=== PATIENT | male | born 1960 | race Two or more races ===

== ENCOUNTER 2020-02-16 16:38 | Emergency (ER) | payer OTHER ==
[~2020-02-16] VITALS: Ht 175.3 cm; Wt 88.9 kg
[2020-02-16] MEDS ORDERED: SODIUM CHLORIDE 0.9% 1,000 ML IV ONE ×2 (16:42)
[2020-02-16] MEDS ORDERED: FLEET ENEMA(ADULT) 135 ML PR ONE (16:45)
[2020-02-16 17:19] LABS: Basophils # (auto) 0.1 10 ^3/uL (0-0.2); Eosinophils # (auto) 0 10 ^3/uL (0-0.8); Mean Corpuscular Hemoglobin 26.6 pg (28.0-32.0)
[2020-02-16 17:21] LABS: Basophils % (auto) 1.5 % (0.0-2.0); Eosinophils % (auto) 0.3 % (0.0-7.0); Hematocrit 43.2 % (41.0-53.0); Hemoglobin 14.1 g/dL (13.5-17.5); Lymphocytes # (auto) 1.3 10 ^3/uL (0.4-5.4); Lymphocytes % (auto) 14.9 % (10.0-50.0); Mean Corpuscular Hgb Conc. 32.7 g/dL (32.0-36.0); Mean Corpuscular Volume 81.6 fL (80.0-100.0); Monocytes % (auto) 11.9 % (0.0-12.0); Neutrophils # (auto) 6.2 10 ^3/uL (1.6-8.6); Neutrophils % (auto) 71.4 % (37.0-80.0); Nucleated Red Blood Cells % 0.2 %; Platelet Count (auto) 532 10^3/uL (140-450); White Blood Cell 8.7 10^3/uL (4.4-10.8)
[2020-02-16 17:35] LABS: Anion Gap 10 (5-15); Blood Urea Nitrogen 23 mg/dL (7-18); Calcium 9.1 mg/dL (8.5-10.1); Carbon Dioxide 22 mmol/L (21-32); Chloride 98 mmol/L (98-107); Glucose 92 mg/dL (74-106); Potassium 3.8 mmol/L (3.5-5.1); Sodium 130 mmol/L (136-145)
[2020-02-16 17:42] LABS: Alanine Aminotransferase 31 U/L (16-61); Alkaline Phosphatase 231 U/L (45-117); Aspartate Aminotransferase 112 U/L (15-37); Bilirubin, Total 0.5 mg/dL (0.2-1.0); GFR African American 103 mL/min; GFR Non-African American 86 mL/min; Total Protein 8.9 g/dL (6.4-8.2)
[2020-02-16 18:11] VITALS: BP 116/82
[2020-02-16 19:38] LABS: Urine Bacteria NONE SEEN /hpf (None Seen); Urine Blood Negative /uL (Negative); Urine Hyaline Cast FEW /lpf (0 - 2); Urine Mucus FEW (None Seen); Urine Specific Gravity 1.021 (1.001-1.035); Urine WBC 1 /hpf (0 - 3)
== END 2020-02-16 19:19 | disposition home or self-care (01) ==
LOC: ER 16:38 → EEVIPCON 16:38 → ER 19:19
DX: K59.00 Constipation, unspecified (principal); E86.0 Dehydration; C18.9 Malignant neoplasm of colon, unspecified; E46 Unspecified protein-calorie malnutrition
CPT/HCPCS: 36415; 74176; 80053; 81001; 84484; 85025; 93005; 96360; 96361

== ENCOUNTER 2020-02-17 17:21 | Inpatient (IN) | payer OTHER ==
[~2020-02-17] VITALS: Ht 175.3 cm; Wt 79.2 kg
[2020-02-17] MEDS ORDERED: SODIUM CHLORIDE 0.9% 500 ML IVB ONE (17:37)
[2020-02-17] MEDS ORDERED: ONDANSETRON HCL 4 MG/2 ML VIAL IV ONE (17:45)
[2020-02-17] MEDS ORDERED: HYDROmorphone HCL 2 MG/ML VL IV ONE (17:45)
[2020-02-17 18:28] LABS: Basophils # (auto) 0.1 10 ^3/uL (0-0.2); Eosinophils # (auto) 0 10 ^3/uL (0-0.8); Eosinophils % (auto) 0.5 % (0.0-7.0); Lymphocytes # (auto) 1.2 10 ^3/uL (0.4-5.4); Lymphocytes % (auto) 12.5 % (10.0-50.0); Monocytes # (auto) 1.1 10 ^3/uL (0-1.3); White Blood Cell 9.4 10^3/uL (4.4-10.8)
[2020-02-17 18:29] LABS: Basophils % (auto) 1.3 % (0.0-2.0); Hematocrit 41.1 % (41.0-53.0); Hemoglobin 13.1 g/dL (13.5-17.5); Mean Corpuscular Hemoglobin 26.3 pg (28.0-32.0); Mean Corpuscular Volume 82.1 fL (80.0-100.0); Monocytes % (auto) 11.2 % (0.0-12.0); Neutrophils % (auto) 74.5 % (37.0-80.0); Platelet Count (auto) 443 10^3/uL (140-450); Red Cell Distribution Width 14.9 % (11.8-14.3)
[2020-02-17 18:44] LABS: Albumin 2.8 g/dL (3.4-5.0); Calcium 8.7 mg/dL (8.5-10.1); Potassium 3.8 mmol/L (3.5-5.1)
[2020-02-17 18:46] LABS: BUN/Creatinine Ratio 18.1
[2020-02-17 18:49] LABS: Bilirubin, Total 0.6 mg/dL (0.2-1.0); Total Protein 8.2 g/dL (6.4-8.2)
[2020-02-17] MEDS ORDERED: MORPHINE SULF INJ 2 MG/ML SYRINGE 1ML IV PRN (19:00)
[2020-02-17] MEDS ORDERED: NITROGLYCERIN 0.4 MG SL TAB SL PRN (19:00)
--- NOTE | 2020-02-17 21:00 | NUR ---
MS admit from [facility] admitted to [facility]. Patient oriented to CHANTAL MORA RN, room 212, bed B. Patient weighed by bedscale and encouraged to call if they need something. All questions and concerns addressed, patient verbalized understanding. Bed locked, in lowest position, call light within reach, side rails up x2. Will monitor Q1 hour and PRN
[2020-02-17 22:00] VITALS: BP 125/84
[2020-02-17] MEDS: D5W/SOD CHL 0.45% 1,000 ML IV SCH (22:04)
[2020-02-17] MEDS: HYDROmorphone HCL 2 MG/ML VL IV PRN (22:22)
[2020-02-18] MEDS ORDERED: HYDROmorphone HCL 2 MG/ML VL IV PRN
[2020-02-18] MEDS: PANTOPRAZOLE 40 MG/10 ML VIAL INJ IV SCH ×3 (00:22→22:30)
[2020-02-18] MEDS: HYDROmorphone HCL 2 MG/ML VL IV PRN ×6 (01:53→20:00)
[2020-02-18] MEDS ORDERED: ONDANSETRON HCL 4 MG/2 ML VIAL IV PRN (02:00)
[2020-02-18 04:27] VITALS: BP 125/84
[2020-02-18 05:39] VITALS: BP 133/80
--- NOTE | 2020-02-18 07:35 | NUR ---
Assumed care of patient from noc shift rn. patient awake, alert and oriented x4. Denies SOB, slight distress discomfort due to rectal pain 06/12, will medicate per eMAR. Plan of care discussed. Bed in lowest and locked position. Encouraged to call for assistance prn. Patient is an inmate, guards at bedside. Will continue to monitor q1 and prn.
[2020-02-18] MEDS: Ensure HIGH Protein Chocolate 8oz Bottle PO SCH ×3 (08:00→18:00)
[2020-02-18] MEDS ORDERED: HYDROcodone-ACET 5/325MG TAB PO PRN (08:15)
[2020-02-18 09:00] VITALS: BP 109/67
--- NOTE | 2020-02-18 09:21 | NUR ---
PATIENT GIVEN DILAUDID 0.75MG PRN FOR 10/10 BACK PAIN. WILL REASSESS AND CONTINUE TO MONITOR FOR CHANGES.
[2020-02-18 11:41] LABS: INR 1.2 (0.9-1.15); Partial Thromboplastin Time 31.1 sec (23.64-32.05)
[2020-02-18 13:00] VITALS: BP 116/72
[2020-02-18] MEDS ORDERED: GELATIN 1 SPONGE SIZE 50 TOP ONE (13:14)
[2020-02-18] MEDS ORDERED: LIDOCAINE 2%HCL (LOCAL ANESTH.) INJ 20ML MDV ONE (13:14)
[2020-02-18] MEDS ORDERED: fentaNYL CITRATE 100 MCG/2 ML VL IV STA (13:18)
[2020-02-18] MEDS ORDERED: MIDAZOLAM HCL 5 MG/ML-1ML VIAL IV STA (13:18)
--- NOTE | 2020-02-18 14:20 | NUR ---
RADIOLOGY: 1330- Patient brought down via bed for liver biopsy. Consent verified. 1340- Time out completed. Dr Murdock at bedside. See Moderate Sedation record. 1415- Patient returned to room. SBAR given to MELYSSA Fletcher. Handed off to RN that patient is complaining of abdominal pain and bladder appeared enlarged on CT scan. Rad RN noted that there was no output in crews bag and crews catheter had dark red blood in tubing. Crews catheter flushed with 10ml NS x2 with no urine output noted. Patient abdomen distended and bladder distension noted. Bedside RN to follow up with . 1425- Tissue sample sent to lab.
--- NOTE | 2020-02-18 14:54 | NUR ---
assessment Patient has been explained that he has a dialysis social worker available to him for support and education regarding his hospital stay and any post discharge needs. Patient has no concerns and no questions at this time. Patient verbalized understanding. Addendum: 02/18/20 at 1454 by Imelda RASCON Amended: Links added.
[2020-02-18] MEDS: D5W/SOD CHL 0.45% 1,000 ML IV SCH (15:00)
[2020-02-18 17:00] VITALS: BP 112/67
--- NOTE | 2020-02-18 20:00 | NUR ---
Opening Shift Note Assumed care of patient. Awake, alert and oriented x4. No S/S of distress or SOB. Patient complaining of pain at 10/10. Will medicate as ordered. Roblero catheter is off the floor, patent and draining hematuria colored urine. Bed locked, in lowest position, call light within reach, side rails up x2. Instructed on POC and to call for assist PRN. Will continue to monitor for changes Q1hr and PRN.
[2020-02-18] MEDS: MORPHINE SULF 30 mg ER tab PO SCH (22:30)
[2020-02-18 22:56] VITALS: BP 124/71
[2020-02-19] MEDS: HYDROmorphone HCL 2 MG/ML VL IV PRN ×6 (00:05→21:00)
[2020-02-19 06:08] VITALS: BP 126/72
[2020-02-19] MEDS: Ensure HIGH Protein Chocolate 8oz Bottle PO SCH ×3 (08:04→17:57)
--- NOTE | 2020-02-19 08:05 | NUR ---
OPENING SHIFT NOTE: PATIENT RESTING IN BED, A/OX4. PATIENT UPDATED ON PLAN OF CARE, CONCERNS ADDRESSED. PATIENT C/O PAIN 7/10 IN THE RECTUM. PATIENT HAS EVEN AND UNLABORED RESPIRATIONS. CALL LIGHT WITHIN REACH, FALL PRECAUTIONS IN PLACE. WILL CONTINUE TO MONITOR.
--- NOTE | 2020-02-19 08:07 | NUR ---
Onur GOLDMAN ROUNDING: CASTRO OBSERVED, NOTED TO HAVE DARK NAM URINE. NO NEW ORDERS, WILL CONTINUE TO MONITOR.
[2020-02-19 09:00] VITALS: BP 111/65
[2020-02-19] MEDS: PANTOPRAZOLE 40 MG/10 ML VIAL INJ IV SCH ×2 (10:25→22:31)
[2020-02-19] MEDS: MORPHINE SULF 30 mg ER tab PO SCH ×3 (10:25→22:32)
[2020-02-19] MEDS: D5W/SOD CHL 0.45% 1,000 ML IV SCH (12:06)
[2020-02-19 13:00] VITALS: BP 114/67
--- NOTE | 2020-02-19 13:15 | NUR ---
Silvia JIMENEZ AT BEDSIDE.
--- NOTE | 2020-02-19 15:58 | NUR ---
PATIENT REPORTING 9/10 PAIN IN THE RECTUM. PO MORPHINE GIVEN ORDERED. INSTRUCTED PATIENT ON PAIN MEDICATION SCHEDULE
--- NOTE | 2020-02-19 16:16 | NUR ---
CALL TO [facility]: CONSULT CALLED AND THIS RN FAXED PAPER WORK REQUESTED BY ROD MILL OPERATOR FOR DR. IBARRA.
--- NOTE | 2020-02-19 16:57 | NUR ---
FULL LINEN CHANGE DONE AT THIS TIME. PATIENT REPORT PERSISTENT PAIN 10/10, PATIENT BEHAVIOR NOT TEARFUL, HEART RATE 82. RESPIRATORY RATE 18. WILL CONTINUE TO MONITOR.
[2020-02-19 17:00] VITALS: BP 117/72
--- NOTE | 2020-02-19 18:58 | NUR ---
CARE ENDORSED TO JOHANNA RAGSDALE.
[2020-02-19 22:00] VITALS: BP 133/80
[2020-02-20] MEDS: HYDROmorphone HCL 2 MG/ML VL IV PRN ×5 (02:16→18:51)
[2020-02-20 05:00] VITALS: BP 103/58
[2020-02-20] MEDS: D5W/SOD CHL 0.45% 1,000 ML IV SCH (07:11)
--- NOTE | 2020-02-20 07:32 | NUR ---
End of Shift Note Endorsed care to dayshift RN. At this time patient has no s/s of distress or SOB, respirations are even and unlabored.
[2020-02-20 08:00] VITALS: BP 103/76
[2020-02-20] MEDS: Ensure HIGH Protein Chocolate 8oz Bottle PO SCH ×3 (08:20→18:26)
[2020-02-20] MEDS: PANTOPRAZOLE 40 MG/10 ML VIAL INJ IV SCH ×2 (10:23→22:33)
[2020-02-20] MEDS: MORPHINE SULF 30 mg ER tab PO SCH ×2 (10:23→22:33)
[2020-02-20 12:00] VITALS: BP 112/65
--- NOTE | 2020-02-20 12:30 | NUR ---
Silvia JIMENEZ ROUNDING: RECOMMENDS RADIATION THERAPY, TRANSFER TO [facility] FOR ON SITE TREATMENTS.
--- NOTE | 2020-02-20 12:53 | NUR ---
FLEET ENEMA GIVEN, SMALL YELLOW BM SMEAR NOTED AFTER PATIENT BEARED DOWN.
[2020-02-20] MEDS ORDERED: FLEET ENEMA(ADULT) 135 ML PR ONE (13:00)
[2020-02-20] MEDS ORDERED: fentaNYL CITRATE 100 MCG/2 ML VL ONE (14:21)
[2020-02-20] MEDS ORDERED: diphenhdrAMINE HCL 50 MG/1 ML VL ONE (14:21)
[2020-02-20] MEDS ORDERED: MIDAZOLAM HCL 5 MG/ML-1ML VIAL ONE (14:21)
--- NOTE | 2020-02-20 14:35 | NUR ---
PATIENT TAKEN DOWN TO PRE-OP.
--- NOTE | 2020-02-20 16:11 | NUR ---
ATTEMPTED TO CALL [facility]: THIS RN SPOKE WITH SASK[facility] IN THE "AFTER HOURS ANSWERING SERVICE," THIS RN INQUIRED WHAT TIME IS CONSIDERED AFTER HOURS, SINCE IT IS 1600. SASKIA INFORMED THIS RN "THEY ARE ACTUALLY OPEN, BUT THE LINES ARE CLOSED AND DR. IBARRA IS NOT AVAILABLE, IT IS DR. GUIDRY EL TEACHER." SASKIA UNABLE TO PROVIDE CONTACT INFO FOR DR. GUIDRY OR LEAVE A CONSULT MESSAGE FOR DR. GUIDRY SINCE, "THEY DID NOT PROVIDE US WITH THAT INFORMATION." THIS RN UNSUCCESSFUL AT CONSULTING [facility] AT THIS TIME DUE TO LACK OF PROVIDER CONTACT INFORMATION.
[2020-02-20 17:00] VITALS: BP 109/70
--- NOTE | 2020-02-20 19:06 | NUR ---
CARE ENDORSED TO JOHANNA RAGSDALE.
--- NOTE | 2020-02-20 20:02 | NUR ---
Made Dr. Ca aware that Radiation therapy consult was recalled but Dr. Nishant MD nurses' association executive director, was unable to be consulted. [facility] "after hours answering service" unable to provide contact information or put in consult. No new orders received. Will continue to monitor patient Q1 and PRN.
[2020-02-20 22:00] VITALS: BP 136/69
[2020-02-21] MEDS: HYDROmorphone HCL 2 MG/ML VL IV PRN ×7 (00:01→21:30)
[2020-02-21] MEDS: D5W/SOD CHL 0.45% 1,000 ML IV SCH (03:00)
--- NOTE | 2020-02-21 03:14 | NUR ---
pain pt c/o rectal pain 06/12, will admin ordered medication.
[2020-02-21 05:00] VITALS: BP 92/56
--- NOTE | 2020-02-21 07:24 | NUR ---
End of Shift Note Endorsed care to dayshift RN. At this time patient has no s/s of distress or SOB. Respirations are even and unlabored.
--- NOTE | 2020-02-21 07:55 | NUR ---
OPENING SHIFT NOTE: PATIENT RESTING IN BED, ASLEEP. EASILY AWOKEN, BEGAN TALKING RAPIDLY AND IN SHORT SENTENCES, "GOOD MORNING, GOOD MORNING, YEAH YEAH I WAS ASLEEP, WHEN IS BREAKFAST, I FEEL CRUMMY, I AM IN PAIN." THIS RN RE-ORIENTED PATIENT, INSTRUCTED PATIENT PAIN MEDICATION IS NOT DUE AT THIS TIME, AND BREAKFAST TO ARRIVE WITHIN THE NEXT 20 MINUTES. UPDATED ON PLAN OF CARE. PATIENT RESPIRATIONS 14, NO SIGNS OF DISTRESS, CALL LIGHT WITHIN REACH, IV PATENT AND RUNNING, ASYMPTOMATIC. GUARDS AT BEDSIDE, WILL CONTINUE TO MONITOR.
[2020-02-21 08:00] VITALS: BP 110/66
[2020-02-21] MEDS: Ensure HIGH Protein Chocolate 8oz Bottle PO SCH ×3 (08:48→17:50)
[2020-02-21] MEDS: MORPHINE SULF 30 mg ER tab PO SCH ×2 (10:20→20:51)
[2020-02-21] MEDS: PANTOPRAZOLE 40 MG/10 ML VIAL INJ IV SCH ×2 (10:21→20:51)
--- NOTE | 2020-02-21 10:38 | NUR ---
MD LÓPEZ ROUNDING: ORTHO CONSULT STILL PENDING. PLANS FOR PORT-A-CATH EARLY NEXT WEEK. RECOMMENDS TRANSFER TO [facility] FOR ON SITE RADIATION THERAPY.
--- NOTE | 2020-02-21 11:04 | NUR ---
CALL FROM RADIATION DR GUIDRY: SHE INFORMED THIS RN SINCE PATIENT IS AN INMATE AND CANNOT BE TRANSFERRED TO LOCAL [facility] FOR DAILY TREATMENT, PATIENT SHOULD BE TRANSFERRED TO [facility]. DR. GUIDRY GIVEN Onur GOLDMAN'S PHONE NUMBER.
--- NOTE | 2020-02-21 11:58 | NUR ---
CALL FROM Lainey GOLDEN: WILL SEE PATIENT TODAY, ORDERS RECEIVED FOR PELVIC XRAY AND CT.
[2020-02-21 12:00] VITALS: BP 102/67
--- NOTE | 2020-02-21 12:07 | NUR ---
MD Onur GOLDMAN ROUNDING: PENDING AUTHORIZATION FROM MD MCCRAY FOR POSSIBLE [facility] TRANSFER NEXT WEEK. PENDING ORTHO CONSULT FROM MD SEHPARD. PATIENT UPDATED ON PLAN OF CARE.
--- NOTE | 2020-02-21 12:16 | NUR ---
Nutrition Assessment Notes Please refer to link for full assessment notes. Est Energy needs: 1861-8117 kcals (17-20 kcal/kgBW) Est Protein needs: 109-145 gms/day (1.5-2.0 gm/kgIBW) d/t pt adiposity Will continue to monitor and reassess prn. Addendum: 02/21/20 at [address] Amended: Links added.
[2020-02-21 16:56] VITALS: BP 111/71
--- NOTE | 2020-02-21 19:08 | NUR ---
CARE ENDORSED TO ELIAS RAGSDALE.
--- NOTE | 2020-02-21 19:20 | NUR ---
Opening Note Assumed care of patient, was asleep, easy to arouse, alert and oriented X4. No S/S of distress/SOB or pain. Instructed on POC and to call for assist as needed , will continue to monitor.
[2020-02-21 22:00] VITALS: BP 113/70
[2020-02-22] MEDS: HYDROmorphone HCL 2 MG/ML VL IV PRN ×6 (03:13→21:13)
[2020-02-22 05:00] VITALS: BP 104/74
--- NOTE | 2020-02-22 07:45 | NUR ---
OPENING SHIFT NOTE: PATIENT RESTING IN BED AWAKE. UPDATED ON PLAN OF CARE. PATIENT RESPIRATIONS 18, NO SIGNS OF DISTRESS, CALL LIGHT WITHIN REACH, IV PATENT ASYMPTOMATIC. GUARDS AT BEDSIDE, WILL CONTINUE TO MONITOR.
[2020-02-22 08:43] VITALS: BP 105/66
--- NOTE | 2020-02-22 09:02 | NUR ---
MD MARIBEL ZAVALA.
[2020-02-22] MEDS: Ensure HIGH Protein Chocolate 8oz Bottle PO SCH ×2 (09:26→12:20)
[2020-02-22] MEDS: PANTOPRAZOLE 40 MG/10 ML VIAL INJ IV SCH ×2 (10:39→22:44)
[2020-02-22] MEDS: MORPHINE SULF 30 mg ER tab PO SCH ×2 (10:39→22:44)
--- NOTE | 2020-02-22 15:28 | NUR ---
PATIENT CARE: PATIENT HAD A BM. LIQUID REDDISH BROWN. PARTIAL LINEN CHANGE COMPLETE. WILL CONTINUE TO MONITOR.
[2020-02-22 16:45] VITALS: BP 111/65
--- NOTE | 2020-02-22 19:23 | NUR ---
CARE ENDORSED TO LLOYD RAGSDALE.
--- NOTE | 2020-02-22 19:24 | NUR ---
Opening Shift Note Assumed care of patient, awake, alert and oriented x4, on room air with even and unlabored respirations, no S/S of distress/SOB or pain. Patient able to turn in bed independently, bed in lowest locked position, side rails up x2, and call light within reach. Instructed on POC and to call for assist PRN, will continue to monitor for changes Q1hr and PRN.
[2020-02-22 23:09] VITALS: BP 114/71
[2020-02-23] MEDS: HYDROmorphone HCL 2 MG/ML VL IV PRN ×6 (00:43→23:31)
[2020-02-23 05:17] VITALS: BP 125/74
--- NOTE | 2020-02-23 07:25 | NUR ---
Dr. Lorena Ca rounding on patient No new orders received. Will continue to monitor
--- NOTE | 2020-02-23 07:40 | NUR ---
Opening Note Received report from software quality engineer RN. Patient is awake, alert and oriented x4. Patient is on room air, respirations even and unlabored. Patient complains of generalized body pain 10/10 and is requesting pain medications. Reviewed plan of care with patient, patient verbalized understanding. Bed in low and locked position, call light within reach. Will continue to monitor Q1 hour and PRN. Guards at bedside.
[2020-02-23] MEDS: Ensure HIGH Protein Chocolate 8oz Bottle PO SCH ×4 (08:00→18:25)
[2020-02-23 09:00] VITALS: BP 119/80
[2020-02-23] MEDS: PANTOPRAZOLE 40 MG/10 ML VIAL INJ IV SCH ×2 (09:06→22:02)
[2020-02-23] MEDS: MORPHINE SULF 30 mg ER tab PO SCH ×2 (09:07→22:02)
--- NOTE | 2020-02-23 09:50 | NUR ---
Pain Patient states generalized body pain 10/10 and is requesting Dilaudid. Will medicate per orders. Will continue to monitor Q1 hour and PRN.
--- NOTE | 2020-02-23 09:55 | NUR ---
Dr. Bergman rounding on patient
--- NOTE | 2020-02-23 10:20 | NUR ---
Pain reassessment Patient states pain is 6/10. Will continue to monitor Q1 hour and PRN. Guards at bedside.
[2020-02-23 13:00] VITALS: BP 113/74
[2020-02-23 16:30] VITALS: BP 122/63
--- NOTE | 2020-02-23 19:22 | NUR ---
Closing Note Report given to linen checker RN. No signs or symptoms of distress noted at this time. Guards at bedside.
--- NOTE | 2020-02-23 19:40 | NUR ---
Opening Shift Note Received report and assumed care of patient. Patient is awake and alert. No signs or symptoms of distress noted. Instructed patient on plan of care and to call for assistance as needed. Guards at bedside. Will continue to monitor.
--- NOTE | 2020-02-23 20:05 | NUR ---
Pain Medication Administration Patient complaining of abdominal pain 10/10. Will administer pain medication per MD order. Will reassess pain level and will continue to monitor.
--- NOTE | 2020-02-23 20:35 | NUR ---
Pain Level Reassessment Patient's pain level reassessed to be 9/10. Offered patient nonpharmacological interventions. Will continue to monitor.
[2020-02-23 22:00] VITALS: BP 128/70
--- NOTE | 2020-02-23 23:31 | NUR ---
Pain Medication Administration Patient complaining of abdominal pain 10/10. Will administer pain medication per MD order. Will reassess pain level and will continue to monitor.
--- NOTE | 2020-02-24 00:01 | NUR ---
Pain Level Reassessment Patient asleep for pain level reassessment. No signs or symptoms of distress noted. Will continue to monitor.
[2020-02-24] MEDS: HYDROmorphone HCL 2 MG/ML VL IV PRN ×5 (03:11→21:06)
--- NOTE | 2020-02-24 03:11 | NUR ---
Pain Medication Administration Patient complaining of abdominal pain 10/10. Will administer pain medication per MD order. Will reassess pain level and will continue to monitor.
--- NOTE | 2020-02-24 03:41 | NUR ---
Pain Level Reassessment Patient's pain level reassessed to be 9/10. Offered patient nonpharmacological interventions. Will continue to monitor.
[2020-02-24 05:00] VITALS: BP 105/67
--- NOTE | 2020-02-24 07:35 | NUR ---
Opening Note Received report from web content developer RN. Patient is awake, alert and oriented x4. Patient is on room air, respirations even and unlabored. Patient complains of generalized body pain 10/10 and is requesting pain medications. Reviewed plan of care with patient, patient verbalized understanding. Bed in low and locked position, call light within reach. Will continue to monitor Q1 hour and PRN. Guards at bedside.
[2020-02-24 08:19] VITALS: BP 114/69
[2020-02-24] MEDS: Ensure HIGH Protein Chocolate 8oz Bottle PO SCH ×3 (09:13→18:00)
[2020-02-24] MEDS: PANTOPRAZOLE 40 MG/10 ML VIAL INJ IV SCH ×2 (09:51→23:36)
[2020-02-24] MEDS: MORPHINE SULF 30 mg ER tab PO SCH ×3 (09:51→23:37)
[2020-02-24 12:11] VITALS: BP 127/71
--- NOTE | 2020-02-24 12:47 | NUR ---
Nutrition Followup Note Wt: 94.5 kg Pt was sleeping with guards by bedside. per records pt with rectal cancer. pt is currently on [facility] soft diet with ensure HP TID with adequate Po of 75% x 6 per RN doc Est Energy needs: 3567-4998 kcals (17-20 kcal/kgBW), Est Protein needs: 109-145 gms/day (1.5-2.0 gm/kgIBW) d/t pt adiposity. Will continue to monitor and reassess prn. Labs: BUN 19 H, ALB 2.8 L BM: Pt had 3 BM today per RN doc. Skin: BS 16 mod risk, full details in director of healthcare systems doc. PES: 1) Obesity aeb 129% IBW and BMI of 30.7 kg/m2 r/t energy intake in excess of energy needs 2) Altered nutrition related lab values aeb hyponatremia, mod hypoalbuminemia r/t current medical condition Comments Will continue to closely monitor pertinent labs, PO intake and skin status prn. Will followup in 3-5 days 1)Continue to closely monitor pt PO intake to meet at least 75% of meals. 2) Continue current plan of care
--- NOTE | 2020-02-24 13:04 | NUR ---
Dr. Lorena Ca at bedside MD at bedside discussing plan of care with patient and this RN. No new orders received. Will continue to monitor Q1 hour and PRN.
[2020-02-24 16:39] VITALS: BP 117/75
--- NOTE | 2020-02-24 19:21 | NUR ---
Closing Note Report given to night time nanny RN. No signs or symptoms of distress noted at this time. Guards at bedside.
[2020-02-24 22:00] VITALS: BP 109/61
[2020-02-25] MEDS: HYDROmorphone HCL 2 MG/ML VL IV PRN ×7 (00:18→23:37)
[2020-02-25 05:00] VITALS: BP 119/76
[2020-02-25] MEDS: MORPHINE SULF 30 mg ER tab PO SCH ×3 (05:47→21:22)
--- NOTE | 2020-02-25 07:30 | NUR ---
OPENING SHIFT NOTE Assumed care of patient from night worker RN More. Patient is an inmate, guards noted al bedside. Patient is alert and orientedx4, patient complaining of pain 7/10. Patient was given Dilaudid as ordered by night worker RN. He was offered norco as ordered and hot packs but he refused. Patient was updated on the plan of care and verbalized understanding. Patient has a crews draining clear yellow urine to gravity, no kinks or loops noted in the tubing. Patient has cuffs noted on the right wrist and bilateral ankles, no skin breakdown or circulatory issues noted. Bed is locked, in the lowest position, side rails up x2 and call light is in reach. He was encouraged to meri for assistance as needed.
[2020-02-25] MEDS: Ensure HIGH Protein Chocolate 8oz Bottle PO SCH ×3 (08:42→18:16)
[2020-02-25 09:08] VITALS: BP 98/57
[2020-02-25] MEDS: PANTOPRAZOLE 40 MG/10 ML VIAL INJ IV SCH ×2 (10:08→21:22)
--- NOTE | 2020-02-25 10:08 | NUR ---
PAIN REASSESSMENT Patient is stating he has abdominal pain 10/10. Patient was asleep in bed, breathing is even and unlabored when I entered the room. Patient had Dilaudid 2mg at 0904. Patient was repositioned.
--- NOTE | 2020-02-25 10:15 | NUR ---
1015 02/25/20 - Contacted [facility] correctional case records supervisor Aaliyah at [phone] regarding order to transfer patient to Acute Care ([facility]) for outpt palliative care radiation and chemo. Left message on confidential voice mail with my contact info.
[2020-02-25 12:53] VITALS: BP 108/69
--- NOTE | 2020-02-25 15:32 | NUR ---
1530 02/25/20 - Faxed face sheet, transfer order to higher level of care, H/P, labs, meds, and consults to the following facilities, [facility], [facility], [facility]. Contacted by [facility] transfer center coordinator María who stated case is pending review.
--- NOTE | 2020-02-25 18:17 | NUR ---
PATIENT'S "IV FELL OUT WHEN HE WAS ASLEEP" IV access obtained, via clean sterile technique by inserting 22 gauge catheter at Left forearm after 1 attempt. IV secured properly. No trauma to site. Patient tolerated well.
[2020-02-25 22:07] VITALS: BP 131/71
--- NOTE | 2020-02-26 01:01 | NUR ---
Paging process control engineer for Dr. Bergman 10/05 lack of pain control for pt with medications currently ordered. Shai, attendant taking message stated he would have the doctor return the call.
[2020-02-26] MEDS: HYDROmorphone HCL 2 MG/ML VL IV PRN ×9 (03:15→21:49)
[2020-02-26 05:00] VITALS: BP 114/68
[2020-02-26] MEDS: MORPHINE SULF 30 mg ER tab PO SCH ×3 (05:33→23:04)
--- NOTE | 2020-02-26 07:30 | NUR ---
OPENING SHIFT NOTE Assumed care of patient from security shift manager RN More. Patient is an inmate, guards noted al bedside. Patient is alert and orientedx4, patient complaining of pain 10/10. Patient was given Dilaudid as ordered by security shift manager RN. He was offered norco as ordered and hot packs but he refused. Patient was updated on the plan of care and verbalized understanding. Patient has a crews draining clear yellow urine to gravity, no kinks or loops noted in the tubing. Patient has cuffs noted on the right wrist and bilateral ankles, no skin breakdown or circulatory issues noted. Bed is locked, in the lowest position, side rails up x2 and call light is in reach. He was encouraged to meri for assistance as needed.
[2020-02-26] MEDS: Ensure HIGH Protein Chocolate 8oz Bottle PO SCH ×3 (07:51→18:51)
[2020-02-26 09:00] VITALS: BP 116/71
[2020-02-26] MEDS: PANTOPRAZOLE 40 MG/10 ML VIAL INJ IV SCH (09:42)
--- NOTE | 2020-02-26 09:50 | NUR ---
0944 02/26/20 - Received a call from [facility] transfer center coordinator Julienne, who stated patient has been declined due to Internal Med Service at capacity.
--- NOTE | 2020-02-26 10:48 | NUR ---
1048 02/26/20 - Contacted [facility] transfer center at [phone] and spoke with coordinator Victorino who stated [facility] currently had no beds available but would put patient on the waiting list.
[2020-02-26 13:00] VITALS: BP 126/79
--- NOTE | 2020-02-26 15:25 | NUR ---
SPOKE WITH RADIOLOGY NURSE regarding patient having ultrasound guided portacath placement done tomorrow. She stated that there needs to be Radiologist consult put in and that they may not be able to do the procedure tomorrow. Will put in consult.
[2020-02-26 16:12] LABS: Basophils # (auto) 0.1 10 ^3/uL (0-0.2); Basophils % (auto) 0.9 % (0.0-2.0); Eosinophils # (auto) 0.1 10 ^3/uL (0-0.8); Eosinophils % (auto) 1.3 % (0.0-7.0); Hematocrit 34.7 % (41.0-53.0); Hemoglobin 11.4 g/dL (13.5-17.5); Lymphocytes # (auto) 1.2 10 ^3/uL (0.4-5.4); Lymphocytes % (auto) 13.5 % (10.0-50.0); Mean Corpuscular Hemoglobin 27.1 pg (28.0-32.0); Mean Corpuscular Volume 82.1 fL (80.0-100.0); Monocytes # (auto) 1.1 10 ^3/uL (0-1.3); Monocytes % (auto) 11.7 % (0.0-12.0); Neutrophils # (auto) 6.7 10 ^3/uL (1.6-8.6); Neutrophils % (auto) 72.6 % (37.0-80.0); Platelet Count (auto) 434 10^3/uL (140-450); Red Blood Cells 4.23 10^6/uL (4.5-5.90); Red Cell Distribution Width 15.2 % (11.8-14.3); White Blood Cell 9.2 10^3/uL (4.4-10.8)
[2020-02-26 16:22] LABS: INR 1.42 (0.9-1.15)
[2020-02-26 16:23] LABS: Albumin 2.4 g/dL (3.4-5.0); Calcium 8.5 mg/dL (8.5-10.1); Potassium 4.8 mmol/L (3.5-5.1)
[2020-02-26 16:27] LABS: BUN/Creatinine Ratio 21.4; Bilirubin, Total 0.8 mg/dL (0.2-1.0); Total Protein 7.2 g/dL (6.4-8.2)
[2020-02-26 17:00] VITALS: BP 123/70
--- NOTE | 2020-02-26 18:10 | NUR ---
MAHENDRA AT BEDSIDE updated on patient status, plan of care discussed with patient and he verbalized understanding. Per MD patient will be transferred to [facility] to begin radiation therapy tomorrow. No new orders received.
--- NOTE | 2020-02-26 19:35 | NUR ---
Opening Shift Note Assumed care of patient, awake and alert. No S/S of distress/SOB. Patient an inmate, guards at bedside. Instructed on POC and to call for assist PRN, will continue to monitor for changes Q1hr and PRN.
[2020-02-26] MEDS: PANTOPRAZOLE 40 MG TAB PO SCH (21:49)
[2020-02-26 22:00] VITALS: BP 123/72
[2020-02-27] MEDS: HYDROmorphone HCL 2 MG/ML VL IV PRN ×3 (01:11→06:35)
[2020-02-27 05:00] VITALS: BP 132/85
[2020-02-27] MEDS: MORPHINE SULF 30 mg ER tab PO SCH ×3 (06:00→23:16)
[2020-02-27 08:00] VITALS: BP 127/74
[2020-02-27] MEDS: Ensure HIGH Protein Chocolate 8oz Bottle PO SCH ×3 (08:00→18:33)
--- NOTE | 2020-02-27 08:00 | NUR ---
Received orders from Dr. Beulah Bergman to D/C Dialudid IV. ordered Dilaudid SIDE DOOR WORKER pump and to continue oramorph PO. Report given to MELYSSA Lawson.
--- NOTE | 2020-02-27 08:30 | NUR ---
Opening Shift Note Assumed care of patient, awake and alertx4. No S/S of distress/SOB. Patient c/o abdominal pain, rates it 10/10. Will medicate per MD orders. Bed at lowest locked position and call light within reach. Instructed on POC and to call for assist PRN, will continue to monitor for changes Q1hr and PRN. Guards at bedside for safety.
--- NOTE | 2020-02-27 08:55 | NUR ---
Pharmacy Per Deepa ,working on IT INSTRUCTOR pump medication. Notified patient. Will continue to monitor.
[2020-02-27 09:00] VITALS: BP 127/74
--- NOTE | 2020-02-27 09:15 | NUR ---
RT NOTE: WENT TO PTS ROOM, PLACED PT ON CONTINUOUS BEDSIDE PULSE OX, PT IS ON 2L NC, HR 97, SPO2 95%, RR 16, WILL CONTINUE TO MONITOR PT. RN AWARE OF PT BEING PLACED ON PULSE OX.
--- NOTE | 2020-02-27 10:15 | NUR ---
BIOLOGICAL PHOTOGRAPHER pump set up and started per MD orders VS: BP 130/75, RR, 16, HR 100, Spo2 93%.
--- NOTE | 2020-02-27 10:42 | NUR ---
Dr. Richardson at bedside, orders for Dilaudid .5mg IV Bolus for STONER OUT pump ONE time received and verified.
--- NOTE | 2020-02-27 11:00 | NUR ---
Patient had a bm, assisted patient to get cleaned up with FUR DRUMMER help. Patient tolerated well.
[2020-02-27] MEDS ORDERED: HYDROmorphone HCL 2 MG/ML VL IV ONE (11:15)
[2020-02-27] MEDS: PANTOPRAZOLE 40 MG TAB PO SCH ×2 (12:01→23:16)
[2020-02-27 13:00] VITALS: BP 142/74
--- NOTE | 2020-02-27 14:15 | NUR ---
PAIN Patient c/o pain 03/12. Administering pain medications as scheduled/ per MD orders. Will continue to monitor. Addendum: 02/27/20 at 1648 by Frances Saucedo RN *1526 Pain reassessment No c/o pain. patient resting in bed. guards at bedside for safety.
--- NOTE | 2020-02-27 15:27 | NUR ---
Nutrition Followup Note Wt: 94.5 kg Pt was sleeping with guards by bedside. per records pt with rectal cancer, NPO today for port cath insertion. now resumed mech soft diet with ensure HP TID with adequate Po of 75% x 6 per RN doc Est Energy needs: 2374-5838 kcals (17-20 kcal/kgBW), Est Protein needs: 109-145 gms/day (1.5-2.0 gm/kgIBW) d/t pt adiposity. Will continue to monitor and reassess prn. Labs: BUN 27 H, ALB 3.2 L. BM: Pt had 1 BM today per RN doc. Skin: BS 18 mod risk, full details in special needs caregiver doc. PES: 1) Obesity aeb 129% IBW and BMI of 30.7 kg/m2 r/t energy intake in excess of energy needs 2) Altered nutrition related lab values aeb hyponatremia, mod hypoalbuminemia r/t current medical condition Comments Will continue to closely monitor pertinent labs, PO intake and skin status prn. Will followup in 3-5 days 1)Continue to closely monitor pt PO intake to meet at least 75% of meals. 2) Continue current plan of care
--- NOTE | 2020-02-27 16:00 | NUR ---
XOCHITL OLIVA AT BEDSIDE.
[2020-02-27 17:00] VITALS: BP 122/74
[2020-02-27] MEDS ORDERED: NALOXONE HCL 0.4 MG/ML VIAL IV ONE (17:00)
--- NOTE | 2020-02-27 17:50 | NUR ---
REALTIME CAPTIONER PUMP STARTED NEW HYDROMORPHONE REALTIME CAPTIONER PUMP WITH HOME RAGSDALE, PER DR. BARRON ORDERS. WILL CONTINUE TO MONITOR.
--- NOTE | 2020-02-27 18:00 | NUR ---
PATIENT HAD A BM. CLEANSED PATIENT AND CHANGED BED LINENS WITH HELP OF SPANNER OPERATOR. PATIENT TOLERATED WELL. WILL CONTINUE TO MONITOR PRN.
--- NOTE | 2020-02-27 18:56 | NUR ---
CLOSING NOTE Patient is comfortably resting in bed, no s/s of distress/sob noted/ stated. Bed at lowest locked position and call light within reach. Guards at bedside for safety. Will endorse care to NOC MELYSSA Gunderson.
--- NOTE | 2020-02-27 19:30 | NUR ---
Opening Shift Note Assumed care of patient, awake and alert. No S/S of distress/SOB or pain. Patient on a Dilaudid pump, re-educated on how to use it, verbalized understanding. Patient appears relaxed but still says that his pain level is 10. Instructed on POC and to call for assist PRN, will continue to monitor for changes Q1hr and PRN.
[2020-02-27 22:00] VITALS: BP 141/77
--- NOTE | 2020-02-27 23:00 | NUR ---
Dilaudid EXECUTIVE DIRECTOR SHELTERED WORKSHOP pump's syringe changed with scrap charger Shae, Patient re-educted with how to use Dilaudid EXECUTIVE DIRECTOR SHELTERED WORKSHOP pump. Patient verbalized understanding. Care continued.
[2020-02-28 05:00] VITALS: BP 106/55
[2020-02-28] MEDS: MORPHINE SULF 30 mg ER tab PO SCH ×3 (06:23→23:23)
--- NOTE | 2020-02-28 07:15 | NUR ---
PT. ASSESSED, NO RESP. DISTRESS OR SOB NOTED. PT. IS SLEEPING, VITALS ARE HR=81,R=20,SP02=96% ON RA. , PRN. MN. TX. NOT INDICATED AT THIS TIME, NOT GIVEN. BS. ARE CLEAR AND DIMINISHED BILATERALLY. PT. IS AWARE HE MAY CALL IF NEEDED. Addendum: 02/28/20 at 1102 by Marianna Riley RT Amended: Links added.
--- NOTE | 2020-02-28 07:30 | NUR ---
Dilaudid CLIMATE CHANGE RISK ASSESSOR pump delivered 5mg of dilaudid IV since 2299. Patient appears comfortable, however, he still verbalizes that his pain level is 10 out of 10. Report given to MELYSSA Lawson.
--- NOTE | 2020-02-28 07:40 | NUR ---
OPENING NOTE Assumed care of patient, awake and alertx4 and relaxed . No S/S of distress/SOB. Bed at lowest locked position and call light within reach. Instructed on POC and to call for assist PRN, will continue to monitor for changes Q1hr and PRN. Guards at bedside for safety.
[2020-02-28 08:00] VITALS: BP 120/68
[2020-02-28 09:12] VITALS: BP 120/68
[2020-02-28] MEDS: Ensure HIGH Protein Chocolate 8oz Bottle PO SCH ×3 (12:00→18:00)
[2020-02-28 13:00] VITALS: BP 102/68
[2020-02-28] MEDS: PANTOPRAZOLE 40 MG TAB PO SCH ×2 (13:36→23:23)
--- NOTE | 2020-02-28 14:26 | NUR ---
Attempted PT eval. Pt initially requested to be cleaned first so I notified RN. I returned and pt declined PT and requested that I return in the morning. Will attempt again tomorrow.
--- NOTE | 2020-02-28 14:30 | NUR ---
Pain patient is relaxed sitting in bed . c/o abdominal pain, rates it 10/10. will administer pain medications per MD.
--- NOTE | 2020-02-28 16:20 | NUR ---
PAR[employer] WARDEN PUMP AND PAIN MANAGEMENT LEFT A MESSAGE FOR DR. BEATRICE LEUNG, REGARDING THE PARK WARDEN PUMP ATTEMPTS/DELIVERIES AND PAIN SCORE. AWAITING CALL BACK. Addendum: 02/28/20 at 1641 by Frances Saucedo RN MD CALLED BACK. MD NOTIFIED AND AWARE. CONTINUE PARK WARDEN ORDERS UNTIL TOMORROW. PER MD.
[2020-02-28 17:23] VITALS: BP 104/65
--- NOTE | 2020-02-28 18:25 | NUR ---
NEW DILAUDID DIVISION OPERATIONS MANAGER PUMP STARTED.
--- NOTE | 2020-02-28 19:40 | NUR ---
Opening Shift Note Pt is resting in bed with eyes open and resp rate is even and unlabored. No s/s of any distress noted at this time. POC discussed with pt ,including answering all questions about DE ICER KIT ASSEMBLER pump, and pt verbalizes understanding. Pt has guards at bedside and has right wrist and both LE cuffed to the bed. Pt reports mult BMs and is using bed jimenez. Bed is low, wheels are locked, and call light is with in reach.
--- NOTE | 2020-02-28 20:37 | NUR ---
Respiratory note: WENT TO PTS ROOM, PLACED PT ON CONTINUOUS BEDSIDE PULSE OX, PT IS ON 2L NC, HR 95, SPO2 95%, RR 16, WILL CONTINUE TO MONITOR PT. RN AWARE OF PT BEING PLACED ON PULSE OX.
[2020-02-28 22:00] VITALS: BP 108/61
[2020-02-29 04:30] VITALS: BP 108/68
[2020-02-29] MEDS: MORPHINE SULF 30 mg ER tab PO SCH ×3 (06:13→22:49)
--- NOTE | 2020-02-29 06:54 | NUR ---
Respiratory note: POX CHECK. HR 86, RR 16, SPO2 97% ON 2L NC, BS CLEAR. NO SIGNS OR SYMPTOMS OF RESPIRATORY DISTRESS NOTED AT THIS TIME.
[2020-02-29 08:00] VITALS: BP 125/73
--- NOTE | 2020-02-29 08:02 | NUR ---
Opening Shift Note Assumed care of patient, awake and alertx4. No S/S of distress/SOB. Bed at lowest locked position and call light within reach. Instructed on POC and to call for assist PRN, will continue to monitor for changes Q1hr and PRN. Patient's right wrist cuffed to bed, no open skin, some redness noted. Guards at bedside for safety.
[2020-02-29 08:53] VITALS: BP 125/73
--- NOTE | 2020-02-29 11:00 | NUR ---
Dr. Horvath at bedside. Per MD call Dr. Frey for PREPRESS TECHNICIAN pump continuation orders.
[2020-02-29] MEDS: Ensure HIGH Protein Chocolate 8oz Bottle PO SCH ×3 (12:00→18:00)
[2020-02-29 13:00] VITALS: BP 112/66
--- NOTE | 2020-02-29 13:29 | NUR ---
Left message for Onur Quintero awaiting call back. Addendum: 02/29/20 at 1547 by Frances Saucedo RN Onur QUINTERO AT BEDSIDE. VERBAL ORDERS GIVEN TO CONTINUE BLEACH BOILER PULLER PUMP WITH THE SAME PARAMETERS FOR 2 DAYS.
[2020-02-29] MEDS: PANTOPRAZOLE 40 MG TAB PO SCH ×2 (13:57→22:49)
--- NOTE | 2020-02-29 14:42 | NUR ---
Patient is ambulating with walker and physical therapy.
--- NOTE | 2020-02-29 18:55 | NUR ---
SUPERIOR COURT JUSTICE PUMP New Dilaudid SUPERIOR COURT JUSTICE pump's syringe started. Patient educated. Will continue to care.
--- NOTE | 2020-02-29 19:30 | NUR ---
opening note pt A&Ox4. respirations even nonlabored on 2Lnc. pt has EVENT SPECIALIST PRODUCT DEMONSTRATOR pump infusing. POC discussed. pt anticipates having multiple BMs throughout shift. pt is an inmate with 2 federal guards at bedside. wrist R handcuffed to bed. ankles cuffed to bed. bed in low locked position, call light within reach.
--- NOTE | 2020-02-29 19:31 | NUR ---
closing note Patient comfortably resting, no s/s of distress noted. Bed at lowest locked position and call light within reach. Care endorsed to NOC RN. Guards at bedside for safety.
--- NOTE | 2020-02-29 21:25 | NUR ---
Respiratory note: POX CHECK. HR 95, RR 16, SPO2 95% ON 2L NC, BS CLEAR. NO SIGNS OR SYMPTOMS OF RESPIRATORY DISTRESS NOTED AT THIS TIME.
[2020-02-29 22:00] VITALS: BP 119/68
[2020-03-01 05:00] VITALS: BP 115/71
[2020-03-01] MEDS: MORPHINE SULF 30 mg ER tab PO SCH ×3 (05:55→22:41)
--- NOTE | 2020-03-01 07:23 | NUR ---
closing note pt in semi morse with HOB at 30 degrees. WARPING MILL OPERATOR pump infusing. crews in place, patent, and draining to gravity. endorsed care to day shift nurse.
[2020-03-01 09:03] VITALS: BP 109/65
[2020-03-01] MEDS: PANTOPRAZOLE 40 MG TAB PO SCH ×2 (10:12→22:41)
[2020-03-01] MEDS: Ensure HIGH Protein Chocolate 8oz Bottle PO SCH ×3 (10:12→18:00)
--- NOTE | 2020-03-01 11:02 | NUR ---
1000 03/01/20 - Contacted by Dr Horvath, regarding status of transfer to higher level of care. I informed Dr Horvath that [facility] have provided updates every 2-3 days. [facility] has patient on waiting list but continues to have no beds available. I also informed him that [facility] declined patient due to at capacity. Dr Horvath stated that he would be speaking with oncology radiologist to see what other options may be available. I have also faxed request for transfer to [facility] and [facility]. I will f/u with both facilities today.
[2020-03-01 12:32] VITALS: BP 113/68
--- NOTE | 2020-03-01 12:48 | NUR ---
Nutrition Followup Note Wt: 93.7 kg Pt alert and oriented. pt reports no ability to control bowels aeb pt with 22 BMs 03/01 per RN doc. Pt with adequate intake aeb pt with avg 79% po intake x 3 days per RN doc. Est Energy needs: 6586-3335 kcals (17-20 kcal/kgBW), Est Protein needs: 109-145 gms/day (1.5-2.0 gm/kgIBW) d/t pt adiposity. Will continue to monitor and reassess prn. Labs: Creat 0.56L, Alb 2.4L BM: Pt had 22 BMs today per RN doc. Skin: BS 17 mod risk, full details in healthcare corporate account director doc. PES: 1) Obesity aeb 129% IBW and BMI of 30.7 kg/m2 r/t energy intake in excess of energy needs 2) Altered nutrition related lab values aeb hyponatremia, mod hypoalbuminemia r/t current medical condition Comments Will continue to closely monitor pertinent labs, PO intake and skin status prn. Will followup in 3-5 days 1)Continue to closely monitor pt PO intake to meet at least 75% of meals. 2) Continue current plan of care
[2020-03-01 16:58] VITALS: BP 129/77
--- NOTE | 2020-03-01 19:03 | NUR ---
CARE ENDORSED TO NOC RN.
--- NOTE | 2020-03-01 19:12 | NUR ---
Respiratory note: PT ASSESSED FOR PRN MEDNEB. PT ON 2 LPM SP02 96% AND B/S CLEAR. NO TREATMENT INDICATED AT THIS TIME. INFORMED PT TO HAVE RT PAGED IF BECOMES SOB.
--- NOTE | 2020-03-01 19:45 | NUR ---
Opening Shift Note Assumed care of patient, awake and alert oriented x4. No S/S of distress/SOB noted. Bed is in lowest locked position with bed rails up x2 and call light is within reach of the patient. Instructed on POC and to call for assist PRN.
--- NOTE | 2020-03-01 20:15 | NUR ---
[facility] called: [facility] called and stated that they have no beds available yet but will keep patient on the list to transfer.
--- NOTE | 2020-03-01 20:59 | NUR ---
CAR WASHER PUMP New Dilaudid CAR WASHER pump's syringe started. Patient educated, verified with hina RAGSDALE. Will continue to care.
[2020-03-01 22:00] VITALS: BP 115/74
[2020-03-02 05:00] VITALS: BP 110/71
--- NOTE | 2020-03-02 06:30 | NUR ---
[facility] called: [facility] Transfer center called and stated that they have no beds available yet but will keep patient on the list to transfer.
[2020-03-02] MEDS: MORPHINE SULF 30 mg ER tab PO SCH ×3 (06:43→22:18)
--- NOTE | 2020-03-02 06:47 | NUR ---
PT IS AWAKE, ALERT AND ORIENTED. PT ON 1L/MIN VIA NC, 98% O2 SATS, HR 91 BPM, RR29 BPM, BS ARE CLEAR TO AUSCULTATION. NO SOB OR ANY OTHER RESPIRATORY DISTRESS NOTICED. CONTINUOUS PULSE OX AT BEDSIDE, ALARMS ARE PROPERLY SET, FUNCTIONAL AND AUDIBLE. WILL CONTINUE TO MONITOR PT.
--- NOTE | 2020-03-02 07:50 | NUR ---
RECEIVED PATIENT ALERT AND ORIENTED X4, NOT IN DISTRESS, CLEAR LUNG SOUNDS IN RT. AND LT. UPPER LOWER LUNG LOBES NOTED, RR=18, SAT 97%, DEEP BREATHING AND COUGHING ENCOURAGED, DEMONSTRATED AND VERBALIZED WELL, DENIED SOB AND CHEST PAIN AT THIS MOMENT, SR R=62 ON TELE MONITOR, ABDOMEN SOFT WITH ACTIVE BS, TOLERATED 100% OF PROVIDED BREAK FAST TRAY, IN CONTINENT LAST BM=THIS MORNING REPORTED, CASTRO CATH IN PLACE AND PATENT, DRAINING CLEAR YELLOW URINE, SKIN INTACT WARM TO TOUCH, RADIAL AND PEDAL PULSES PALPABLE, CAP REFILL <3 SECONDS, RESTING ON BED, DENIED PAIN, HEAD OF BED ELEVATED, BED ON LOW POSITION, RAILS UP X2, CALL LIGHT ON REACH, PENDING TRANSFER TO UPPER LEVEL OF CARE, INMATE GUARD AT BED SIDE, WILL CONTINUE MONITORING.
[2020-03-02] MEDS: Ensure HIGH Protein Chocolate 8oz Bottle PO SCH ×3 (08:00→18:00)
[2020-03-02 08:50] VITALS: BP 113/57
[2020-03-02] MEDS: PANTOPRAZOLE 40 MG TAB PO SCH ×2 (09:53→22:18)
--- NOTE | 2020-03-02 12:00 | NUR ---
OUT OF BED WITH PT USING A WALKER AMBULATED AROUND THE UNIT X2, TOLERATED WELL AND BACK TO BED, RESTING ON BED, DR MCCRAY WAS PAGED FOR MANAGER CAMP MEDICATION FOLLOW UP, WAITING FOR CALL BACK.
[2020-03-02 13:00] VITALS: BP 101/69
--- NOTE | 2020-03-02 15:27 | NUR ---
DR. VARGAS WAS CALLED FOR VETERINARIAN LABORATORY ANIMAL CARE MEDICATION ORDER FOLLOW UP AND LEFT A MESSAGE, WAITING FOR CALL BACK.
--- NOTE | 2020-03-02 16:00 | NUR ---
DR. CLARK WAS PAGED FOR PORT CATH PLACEMENT FOLLOW UP ORDERED, WILL CONTINUE MONITORING.
[2020-03-02 17:14] VITALS: BP 116/72
[2020-03-02] MEDS: levoFLOXacin 500 MG TAB PO SCH (17:32)
--- NOTE | 2020-03-02 19:31 | NUR ---
Called and spoke with Dr. Frey regarding the GASKET FORMER pump. Orders received to resume the GASKET FORMER pump for 2 more days and continue current settings until he comes in to see the patient. See order history and eMAR.
--- NOTE | 2020-03-02 19:39 | NUR ---
RESTING ON BED, NOT IN DISTRESS, REPORT WAS GIVEN TO THE LINING STRAP CLOSER RN.
--- NOTE | 2020-03-02 19:45 | NUR ---
Called pharmacy and spoke with Victorino, she said she will input the order for the REQUIREMENTS ANALYST pump.
--- NOTE | 2020-03-02 21:29 | NUR ---
generator technician brought a new Dilaudid syringe for the FITTING ROOM SUPERVISOR pump. Sarah RAGSDALE verified the medication with this RN. Patient states pain level is 10/0-10.
[2020-03-02 22:00] VITALS: BP 116/60
--- NOTE | 2020-03-02 22:26 | NUR ---
Dr. Onur Ca at bedside.
[2020-03-03 05:00] VITALS: BP 114/63
[2020-03-03] MEDS: MORPHINE SULF 30 mg ER tab PO SCH ×3 (05:40→22:01)
[2020-03-03 06:38] LABS: Basophils # (auto) 0.1 10 ^3/uL (0-0.2); Eosinophils # (auto) 0.1 10 ^3/uL (0-0.8); Hematocrit 29.5 % (41.0-53.0); Lymphocytes # (auto) 1.2 10 ^3/uL (0.4-5.4); Lymphocytes % (auto) 13.6 % (10.0-50.0); Monocytes # (auto) 1.1 10 ^3/uL (0-1.3); Neutrophils # (auto) 6.3 10 ^3/uL (1.6-8.6)
[2020-03-03 06:40] LABS: Eosinophils % (auto) 1.2 % (0.0-7.0); Hemoglobin 9.6 g/dL (13.5-17.5); Mean Corpuscular Hemoglobin 26.6 pg (28.0-32.0); Mean Corpuscular Hgb Conc. 32.7 g/dL (32.0-36.0); Mean Corpuscular Volume 81.5 fL (80.0-100.0); Monocytes % (auto) 12.2 % (0.0-12.0); Platelet Count (auto) 509 10^3/uL (140-450); Red Blood Cells 3.62 10^6/uL (4.5-5.90); Red Cell Distribution Width 15.6 % (11.8-14.3); White Blood Cell 8.8 10^3/uL (4.4-10.8)
[2020-03-03 06:55] LABS: INR 1.37 (0.9-1.15); Partial Thromboplastin Time 32.6 sec (23.64-32.05)
[2020-03-03 06:59] LABS: Potassium 3.9 mmol/L (3.5-5.1)
[2020-03-03 07:05] LABS: Albumin 2.2 g/dL (3.4-5.0); BUN/Creatinine Ratio 13.3; Bilirubin, Total 0.7 mg/dL (0.2-1.0); Total Protein 6.5 g/dL (6.4-8.2)
[2020-03-03] MEDS: Ensure HIGH Protein Chocolate 8oz Bottle PO SCH ×3 (08:00→18:00)
--- NOTE | 2020-03-03 08:00 | NUR ---
RECEIVED PATIENT ALERT AND ORIENTED X4, NOT IN DISTRESS, CLEAR LUNG SOUNDS IN BILATERAL UPPER AND LOWER LUNG LOBES, RR=18, SAT 96%, DEEP BREATHING AND COUGHING ENCOURAGED, DEMONSTRATED AND VERBALIZED WELL, DENIED SOB AND CHEST PAIN AT THIS MOMENT, SR R=70 ON TELE MONITOR, ABDOMEN SOFT WITH ACTIVE BS, KEEP NPO ORDERED, LAST BM=03/02/20 REPORTED, CASTRO CATH IN PLACE AND PATENT, DRAINING CLEAR YELLOW URINE, SKIN INTACT WARM TO TOUCH, RADIAL AND PEDAL PULSES PALPABLE, CAP REFILL <3 SECONDS, RESTING ON BED, DENIED PAIN, HEAD OF BED ELEVATED, BED ON LOW POSITION, RAILS UP X2, CALL LIGHT ON REACH, PENDING TRANSFER TO UPPER LEVEL OF CARE, INMATE GUARD AT BED SIDE, ON LANDSCAPE ARCHITECT AND PLANNER 35.4 ML ON A SYRINGE NOTED, WILL CONTINUE MONITORING.
--- NOTE | 2020-03-03 08:45 | NUR ---
0845 03/03/20 - Contacted by [facility] leather case finisher Aaliyah, who informed me that patient is to remain an inpatient to receive chemo treatments once completed patient will transfer to [facility] for outpatient radiation.
[2020-03-03 09:00] VITALS: BP 103/62
[2020-03-03] MEDS: PANTOPRAZOLE 40 MG TAB PO SCH ×2 (10:38→22:01)
[2020-03-03] MEDS: levoFLOXacin 500 MG TAB PO SCH (10:38)
--- NOTE | 2020-03-03 10:54 | NUR ---
Respiratory note: At bedside for assessment. HR 84, RR 18, SPO2 99% on 1lpm nasal cannula. Breath sounds clear/dim, no s/s of respiratory distress. No respiratory intervention indicated. Pt remains on bedside continuous POX monitor with alarms functioning and audible. Officer at bedside.
--- NOTE | 2020-03-03 12:00 | NUR ---
REHAB NURSING TECH MACHINE KEEP BEEPING, RESET THE SYRINGE WITNESSED WITH CHARGE NURSE DENNISE, RESTING ON BED, PENDING PORT CATH INSERTION, KEEP NPO ORDERED, EDUCATION PROVIDED, VERBALIZED UNDERSTANDING, WILL CONTINUE MONITORING.
[2020-03-03 12:55] VITALS: BP 108/62
[2020-03-03] MEDS ORDERED: LIDOCAINE 1% HCL (LOCAL ANESTH.) INJ 20ML MDV ONE (15:05)
[2020-03-03] MEDS: ceFAZolin 1GM VL ONE (15:05)
[2020-03-03] MEDS ORDERED: HEPARIN SODIUM (PORCINE) 5000 UNITS/ML 1ML VIAL ONE (15:05)
[2020-03-03] MEDS ORDERED: HEPARIN 1,000 UNITS/ml 1ML VIAL ONE (15:06)
--- NOTE | 2020-03-03 15:41 | NUR ---
PATIENT REFUSED PT SAID HE WAS HAVING PROCEDURE TODAY. WILL TRY AGAIN TOMORROW. Addendum: 03/03/20 at 1542 by KAMI BRAVO PTT Amended: Links added.
--- NOTE | 2020-03-03 16:54 | NUR ---
PULL OUT LT. HAND IV SITE, NEW IV SITE JOSS 22 INSERTED ON RT, LOWER ARM, TOLERATED WELL, WENT ON BED TO OR FOR PORT CATH PLACEMENT, TOLERATED WELL, WILL CONTINUE FOLLOWING UP.
[2020-03-03 17:00] VITALS: BP 102/72
[2020-03-03] MEDS ORDERED: ceFAZolin 1GM/50ML 50 ML IV ONE (17:00)
--- NOTE | 2020-03-03 18:00 | NUR ---
BACK FROM OR, PORT CATH POSTPONED TO 03/04/20, T=98.4 RR=18 SAT=95% P=82 LK=446/70, NOT IN DISTRESS, RESTING ON BED, WILL CONTINUE MONITORING.
--- NOTE | 2020-03-03 18:10 | NUR ---
Respiratory note: ROUTINE CON POX CHECK. HR 96, RR 18, POX 96% ON 2L NC, BS ARE CLEAR. NO SOB OR DISTRESS NOTED.
--- NOTE | 2020-03-03 19:24 | NUR ---
RESTING ON BED, NOT IN DISTRESS, REPORT WAS GIVEN TO THE APPEALS REVIEWER VETERAN RN.
[2020-03-03 22:00] VITALS: BP 109/74
[2020-03-04 05:00] VITALS: BP 117/71
[2020-03-04] MEDS: MORPHINE SULF 30 mg ER tab PO SCH ×3 (06:11→21:50)
--- NOTE | 2020-03-04 07:09 | NUR ---
closing note pt resting in right lateral position. pain is "tolerable" per patient. respirations even and nonlabored on 2lnc prn. bed in low locked position, call light within reach.
[2020-03-04] MEDS: Ensure HIGH Protein Chocolate 8oz Bottle PO SCH ×2 (08:00→12:00)
--- NOTE | 2020-03-04 08:00 | NUR ---
Morning note patient resting in bed with even and unlabored respirations, no distress noted. Instructed patient through translation on POC, fall precautions and to call for assistance as needed. Patient verbalized understanding. Fall precautions in place with call light within reach.
[2020-03-04 09:00] VITALS: BP 114/70
--- NOTE | 2020-03-04 09:30 | NUR ---
Pt is off unit for procedure. Will attempt PT treatment later.
--- NOTE | 2020-03-04 09:37 | NUR ---
Patient transferred to pre-op via hospital bed. CLERICAL AIDE TEACHER pump being administered per MD order. Respirations even and unlabored, no distress noted. Patient is alert and oriented. Guards at bedside.
[2020-03-04] MEDS ORDERED: SODIUM CHLORIDE LOCK 10 ML ONE (11:21)
[2020-03-04] MEDS ORDERED: PROPOFOL 10 MG/ML 20 ML IV ONE (11:21)
[2020-03-04] MEDS ORDERED: fentaNYL CITRATE 100 MCG/2 ML VL ONE (11:21)
[2020-03-04] MEDS ORDERED: ONDANSETRON HCL 4 MG/2 ML VIAL ONE (11:21)
[2020-03-04] MEDS ORDERED: MIDAZOLAM HCL 1MG/1ML-2 ML VIAL ONE (11:21)
[2020-03-04] MEDS ORDERED: ceFAZolin 1GM/50ML 50 ML IV ONE (11:40)
[2020-03-04] MEDS: ceFAZolin 1GM VL ONE (11:46)
[2020-03-04] MEDS ORDERED: HEPARIN SODIUM (PORCINE) 5000 UNITS/ML 1ML VIAL ONE (12:31)
--- NOTE | 2020-03-04 12:37 | NUR ---
Nutrition Followup Notes Wt: 91.9 kg Pt was off the floor d/t scheduled medical procedure when rounded this morning. Pt is currently NPO d/t procedure, however pt appetite was good prior to NPO status aeb 100% PO intake over 3 meals with a Regular diet. Pt with no noted distress per RN doc. Will continue to monitor PO status, skin status, pertinent labs and weight trends. Will f/u in 3-5 days. Est Energy needs: 9401-4409 kcals (17-20 kcal/kgBW), Est Protein needs: 109-145 gms/day (1.5-2.0 gm/kgIBW) d/t pt adiposity. Will continue to monitor and reassess prn. Labs: Na 132 L, Ca 8.0 L, Alb 2.2 L BM: Pt had 2 BMs today per RN doc. Skin: BS 20 mod risk, full details in medicare specialist doc. PES: 1) Obesity aeb 129% IBW and BMI of 30.7 kg/m2 r/t energy intake in excess of energy needs 2) Altered nutrition related lab values aeb hyponatremia, mod hypoalbuminemia r/t current medical condition Comments Will continue to closely monitor pertinent labs, PO intake and skin status prn. Will followup in 3-5 days 1)Continue to closely monitor pt PO intake to meet at least 75% of meals. 2) Continue current plan of care
[2020-03-04] MEDS: BUPIVACAINE 0.25% INJ 50ML VIAL ONE ×2 (12:50→14:11)
[2020-03-04] MEDS: HEPARIN SODIUM (PORCINE) 5000 UNITS/ML 1ML VIAL ONE ×2 (12:50→14:11)
[2020-03-04] MEDS: LIDOCAINE 1% HCL (LOCAL ANESTH.) INJ 20ML MDV ONE ×2 (12:50→14:11)
--- NOTE | 2020-03-04 12:55 | NUR ---
RE: Intervention Patient off unit at scheduled procedure. Addendum: 03/04/20 at 1722 by Janene Melissa RN Amended: Links added.
[2020-03-04] MEDS: PANTOPRAZOLE 40 MG TAB PO SCH ×2 (14:12→21:50)
[2020-03-04] MEDS: levoFLOXacin 500 MG TAB PO SCH (14:12)
--- NOTE | 2020-03-04 15:30 | NUR ---
Patient resting in bed with even and unlabored respirations, no distress noted. Dressing to the right upper chest and right neck is clean, dry and intact with no bleeding or swelling noted. Call light within reach.
[2020-03-04 17:00] VITALS: BP 105/78
--- NOTE | 2020-03-04 18:33 | NUR ---
Closing note Patient resting in bed with even and unlabored respirations, no distress noted. Dressing to the right upper chest and right neck is clean, dry and intact with no bleeding or swelling noted. Call light within reach. TRAIN ANNOUNCER pump being administered per MD order.
--- NOTE | 2020-03-04 19:15 | NUR ---
RE: MILLWRIGHT SUPERVISOR pump/orders Spoke with Dr. Onur Frey RE: MILLWRIGHT SUPERVISOR pump order. Updated MD with requested information. Orders received and read back to verify.
--- NOTE | 2020-03-04 19:19 | NUR ---
Care endorsed to MELYSSA Tellez.
--- NOTE | 2020-03-04 19:20 | NUR ---
SHIRT TRIMMER pump discontinued per MD order - medication wasted 36ml of HYDROmorphone SHIRT TRIMMER in NS 50mg/50ml wasted. Medication waste witnessed by Cande RN, and MELYSSA Cheney.
--- NOTE | 2020-03-04 19:30 | NUR ---
opening not pt A&Ox4. respirations even and nonlabored on room air. POC discussed. pt is an inmate. bed in low locked position, call light within reach.
[2020-03-04 22:00] VITALS: BP 103/56
--- NOTE | 2020-03-04 23:18 | NUR ---
pain pt complaints of abdominal and rectal pain, 06/12. will administer ordered medication.
[2020-03-04] MEDS: HYDROmorphone HCL 2 MG/ML VL IV PRN (23:25)
--- NOTE | 2020-03-05 02:22 | NUR ---
pain c/o rectal pain 10/10, will administer ordered medication at next administration time.
[2020-03-05] MEDS: HYDROmorphone HCL 2 MG/ML VL IV PRN ×3 (02:28→10:50)
[2020-03-05 05:09] VITALS: BP 112/64
[2020-03-05] MEDS: MORPHINE SULF 30 mg ER tab PO SCH ×3 (05:43→21:45)
--- NOTE | 2020-03-05 06:48 | NUR ---
pain c/o pain 10, will administer ordered medication.
--- NOTE | 2020-03-05 07:04 | NUR ---
closing note pt positioned in right lateral position. two federal guards at bedside, as pt is an inmate. pt recently given pain medication. bed in low locked position, call light within reach.
--- NOTE | 2020-03-05 07:30 | NUR ---
Opening Shift Note Assumed care of patient, awake and alert. No S/S of distress/SOB. Pain reported. Pain management options discussed with patient. Instructed on POC and to call for assist PRN, will continue to monitor for changes Q1hr and PRN.
[2020-03-05 08:00] VITALS: BP 105/66
[2020-03-05 09:00] VITALS: BP 105/66
[2020-03-05] MEDS: Ensure HIGH Protein Chocolate 8oz Bottle PO SCH ×3 (10:40→18:28)
--- NOTE | 2020-03-05 10:50 | NUR ---
Pt reports too much pain to participate in physical therapy. RN aware, will attempt again later.
[2020-03-05] MEDS: levoFLOXacin 500 MG TAB PO SCH (12:19)
[2020-03-05] MEDS: PANTOPRAZOLE 40 MG TAB PO SCH ×2 (12:19→21:45)
[2020-03-05 13:00] VITALS: BP 101/63
--- NOTE | 2020-03-05 13:15 | NUR ---
2nd attempt made for PT eval. Pt states he is still in too much pain and would like to hold today. Will attempt again tomorrow.
--- NOTE | 2020-03-05 14:00 | NUR ---
CRYSTAL EVALUATOR restarted by Dr. Bergman at a rate of 0.5mg/hr. with 0.3mg every 15min max is 1.7mg per hour
[2020-03-05 17:00] VITALS: BP 118/73
[2020-03-05 22:00] VITALS: BP 97/63
[2020-03-06 05:00] VITALS: BP 120/71
[2020-03-06] MEDS: MORPHINE SULF 30 mg ER tab PO SCH ×3 (05:56→22:24)
[2020-03-06 08:05] VITALS: BP 128/68
--- NOTE | 2020-03-06 09:30 | NUR ---
Pain Patient states he is having pain, encouraged to use his GROUTER HELPER pump. Patient could not recall the last time he used it.
[2020-03-06] MEDS: levoFLOXacin 500 MG TAB PO SCH (10:19)
[2020-03-06] MEDS: PANTOPRAZOLE 40 MG TAB PO SCH ×2 (10:19→22:25)
[2020-03-06] MEDS: Ensure HIGH Protein Chocolate 8oz Bottle PO SCH ×3 (10:20→17:42)
--- NOTE | 2020-03-06 10:45 | NUR ---
Pt declined ambulation training today due to severe L hip pain. Pt agreed to perform BLE therex in bed as tolerated throughout the day. Will attempt again tomorrow.
[2020-03-06 13:00] VITALS: BP 112/64
[2020-03-06 16:00] VITALS: BP 98/56
--- NOTE | 2020-03-06 16:55 | NUR ---
BROADBAND ENGINEER Phone call received from Dr. Bergman regarding BROADBAND ENGINEER medication for patient. He stated that the order is a standing order until he cancels or changes it.
--- NOTE | 2020-03-06 19:35 | NUR ---
OPENING SHIFT NOTE PT IS RESTING IN BED WITH EYES OPEN AND RESP RATE IS EVEN AND UNLABORED. NO S/S OF ANY DISTRESS NOTED AT THIS TIME. NEW RIGHT UPPER CHEST MONIQUE CATH SITE IS CDI AND OPEN TO AIR. MONIQUE CATH IS NOT ACCESSED AT THIS TIME. PT IS WITH DILAUDID INSULATION TECHNICIAN PUMP AND AND SETTINGS ARE PER ORDERS. POC DISCUSSED WITH PT AND PT VERBALIZES UNDERSTANDING. BED IS LOW, WHEELS ARE LOCKED, AND CALL LIGHT IS WITH IN REACH.
[2020-03-06 22:00] VITALS: BP 145/94
[2020-03-07 05:00] VITALS: BP 112/70
[2020-03-07] MEDS: MORPHINE SULF 30 mg ER tab PO SCH ×3 (05:51→21:12)
[2020-03-07] MEDS: Ensure HIGH Protein Chocolate 8oz Bottle PO SCH ×3 (08:12→18:35)
[2020-03-07 09:00] VITALS: BP 104/63
[2020-03-07] MEDS: levoFLOXacin 500 MG TAB PO SCH (09:44)
[2020-03-07] MEDS: PANTOPRAZOLE 40 MG TAB PO SCH ×2 (09:44→21:12)
[2020-03-07 13:00] VITALS: BP 110/67
--- NOTE | 2020-03-07 16:45 | NUR ---
Respiratory note: SET UP PT ON BEDSIDE CONTINUOUS POX MONITOR PLUGGED INTO RED OUTLET. HR 97, SPO2 93% ON ROOM AIR. ALARMS SET AND AUDIBLE.
[2020-03-07 17:00] VITALS: BP 108/62
--- NOTE | 2020-03-07 18:05 | NUR ---
DIVERSIFIED CROPS SUPERVISOR Pump Changed to new syringe with 50mls. 26mls from previous dose returned to the pharmacy.
--- NOTE | 2020-03-07 22:02 | NUR ---
RT NOTE PT IS ON CONTINUOUS POX PER ORDER. HR 105, RR 16, POX 95% ON ROOM AIR. Addendum: 03/07/20 at 2303 by Padmini Tena RT Amended: Links added. Addendum: 03/07/20 at 2306 by Padmini Tena RT PT HAS BEDSIDE POX #4 AT BEDSIDE
[2020-03-07 23:56] VITALS: BP 135/83
[2020-03-08] MEDS: MORPHINE SULF 30 mg ER tab PO SCH ×3 (04:55→22:07)
[2020-03-08 05:27] VITALS: BP 125/82
[2020-03-08] MEDS: Ensure HIGH Protein Chocolate 8oz Bottle PO SCH ×3 (08:40→18:47)
--- NOTE | 2020-03-08 08:40 | NUR ---
Respiratory note: POX CHECK. PT DENIES ANY RESP DISTRESS. B/S ARE CLEAR/DIM. SPO2 94% ON 2L, HR 75, RR 18. NO S/S OF DISTRESS.
--- NOTE | 2020-03-08 08:58 | NUR ---
[facility] MD Re[facility] stating that patient is scheduled for radiation today. He is scheduled for 9:45 am and transportation is to be provided.
[2020-03-08 09:00] VITALS: BP 110/70
--- NOTE | 2020-03-08 09:05 | NUR ---
manager [employer] returned call and will notify RN when transportation is arranged.
[2020-03-08] MEDS ORDERED: HYDROmorphone HCL 2 MG/ML VL IV ONE (09:30)
[2020-03-08] MEDS: levoFLOXacin 500 MG TAB PO SCH (10:16)
[2020-03-08] MEDS: PANTOPRAZOLE 40 MG TAB PO SCH ×2 (10:16→22:07)
--- NOTE | 2020-03-08 12:40 | NUR ---
Transportation with [facility] As per correctional case records supervisor, transportation was authorized, however [facility] will not be able to pickup driver patient until 1330 or 1400. Guards were notified.
[2020-03-08 13:00] VITALS: BP 110/64
--- NOTE | 2020-03-08 13:00 | NUR ---
Chemo Therapy Orders from Dr. Bergman to start chemotherapy after radiation begins. 5FU 1000mg/m2 continuous infusion day 1-5 and day 29-33. Pharmacist was notified regarding placing order. MD and RN was unable to enter order. Pharmacist will follow u as medication is not available and will have to be sourced. RN to call pharmacy 03/09 for update. Will endorse to night manager RN.
--- NOTE | 2020-03-08 13:55 | NUR ---
PET TRAINER Pump Patient PET TRAINER pump stopped and patient was medicated at this time with Dilaudid 2mg IV as per Dr. Bergman's to provide some coverage while at therapy. Will resume PET TRAINER when patient returns to unit.
--- NOTE | 2020-03-08 14:00 | NUR ---
Oral Pain Medication Medication held, patient given one time dose Dilaudid instead. Patient is going out for procedure without EXHAUSTER ENGINEER pump.
--- NOTE | 2020-03-08 14:04 | NUR ---
[facility] transporting patient to have radiation therapy done.
--- NOTE | 2020-03-08 14:15 | NUR ---
Attempted PT treatment, pt is off unit for treatment. Will attempt later.
--- NOTE | 2020-03-08 15:22 | NUR ---
Nutrition Followup Notes Wt: 91.0 kg Pt was sleeping with guards in room. Pt appetite is fair aeb pt with inadequate po intake aeb pt with avg po intake of 69% x 2days per RN note. Will continue to monitor po intake Est Energy needs: 4096-3738 kcals (17-20 kcal/kgBW), Est Protein needs: 109-145 gms/day (1.5-2.0 gm/kgIBW) d/t pt adiposity. Will continue to monitor and reassess prn. Labs: Creat 0.60L, Ca 8.0L, Alb 2.2L BM: Pt had 6 BMs today per RN doc. Skin: BS 19 low risk, full details in animal care technician doc. PES: 1) Obesity aeb 129% IBW and BMI of 30.7 kg/m2 r/t energy intake in excess of energy needs 2) Altered nutrition related lab values aeb hyponatremia, mod hypoalbuminemia r/t current medical condition Comments Will continue to closely monitor pertinent labs, PO intake and skin status prn. Will followup in 3-5 days 1)Continue to closely monitor pt PO intake to meet at least 75% of meals. 2) Continue current plan of care
--- NOTE | 2020-03-08 16:15 | NUR ---
Irving Swartz Spoke with Zoila at [phone] regarding patient. He is scheduled for treatment daily at 9:00am Sunday to Sunday x 9. Transportation should be provided daily for this patient. Will notify Angel[facility] nurse outreach case manager.
[2020-03-08 17:00] VITALS: BP 101/66
--- NOTE | 2020-03-08 17:23 | NUR ---
On Unit Patient returned to unit with guards and [facility] team from radiation therapy. Will assess.
--- NOTE | 2020-03-08 18:30 | NUR ---
Dilaudid Patient having pain 10/10. PATIENT SUPPORT ASSISTANT pump initiated, wasted 30mls from previous pump with other RN.
--- NOTE | 2020-03-08 18:31 | NUR ---
1800 03/08/20 - Contacted [facility] at [phone] to set up transportation for patient for daily starting 03/09/20 - 03/18/20. Patient has an appointment at 0900 and will be picked up for transport to [facility] [address], [place] [address]. Phone number [phone]. Patient will have a total of 9 radiation treatments.
--- NOTE | 2020-03-08 18:45 | NUR ---
[facility] [employer] Re:Transportation Received phone call from [employer]. Transportation is arranged for the patient for the next 9 days of radiation therapy. Patient will be transported by [facility] at 8:00am each day Sunday to Sunday and [facility] will wait and take patient back to hospital. Will endorse in report to night patrol inspector RN. Day shift charge entry was already notified of need for daily treatment.
--- NOTE | 2020-03-08 19:30 | NUR ---
Opening Shift Note Assumed care of patient, awake and alert. No S/S of distress/SOB or pain. Instructed on POC and to call for assist PRN, will continue to monitor for changes Q1hr and PRN. Side rails up x2. Bed locked in lowest position. Call light within reach. Cuffs on bilateral ankles and left wrist. 2 guards at bedside.
[2020-03-08 22:00] VITALS: BP 109/66
--- NOTE | 2020-03-08 22:55 | NUR ---
Respiratory note: POX CHECK. PT DENIES ANY RESP DISTRESS. B/S ARE CLEAR/DIM. SPO2 99% ON 1L, HR 91, RR 16. NO S/S OF DISTRESS.PATIENT WAS NOT WEARING BEDSIDE POX. TOOK IT OUT OF ROOM.
[2020-03-09] VITALS (10 sets, daily range): BP systolic 100–123; BP diastolic 55–81
[2020-03-09] MEDS: MORPHINE SULF 30 mg ER tab PO SCH ×3 (05:19→22:35)
--- NOTE | 2020-03-09 07:30 | NUR ---
Endorsed care to day shift RN.
--- NOTE | 2020-03-09 08:33 | NUR ---
Verification of order Dr. Bergman at bedside received new order as follow : to change Max dose of COMPUTER TECHNOLOGY INSTRUCTOR pump to 2.0 mg/hr, start 5 FU on day 2-6 and day 30-46, give 2 mg of Dilaudid before patient is leaving to Radiation Tx. Noted and carried it out.
[2020-03-09] MEDS: levoFLOXacin 500 MG TAB PO SCH (10:03)
[2020-03-09] MEDS: PANTOPRAZOLE 40 MG TAB PO SCH ×2 (10:03→22:34)
[2020-03-09] MEDS: Ensure HIGH Protein Chocolate 8oz Bottle PO SCH ×3 (10:04→17:57)
--- NOTE | 2020-03-09 11:26 | NUR ---
Respiratory note: PT PLACED ON CONT. POX. PT ON 1 LPM SP02 98%, HR-90, RR 20.
--- NOTE | 2020-03-09 12:15 | NUR ---
Dr. Boudreaux paged regarding order to access a port a cath, spoke to Awaiting to call back.
--- NOTE | 2020-03-09 12:47 | NUR ---
PAGED: DR. MCCRAY PAGED FOR ORDERS TO ACCESS [employer].
--- NOTE | 2020-03-09 13:10 | NUR ---
Pt declined PT treatment stating he is getting ready to receive chemotherapy. Will attempt again tomorrow.
--- NOTE | 2020-03-09 15:00 | NUR ---
First dose of Chemo therapy started at rate 43.333 ml per hour via port a cath on right upper chest, witnesses by 2 nurses Kelle RAGSDALE and Bethany ARMENDARIZ. Side affect explained to the patient , verbalized understanding. Patient tolerated well. No any reactions noted. VS taken , see on the E-MAR.
[2020-03-09] MEDS: FLUOROURACIL 2,000 MG in SODIUM CHLORIDE 0.9% 1,000 ML IV SCH (15:03)
--- NOTE | 2020-03-09 16:00 | NUR ---
Patient is continue receiving Chemo therapy, tolerated well. No any reactions noted.
--- NOTE | 2020-03-09 18:36 | NUR ---
UI UX WEB DEVELOPER pump changed at this time witness with Kelle RN, old UI UX WEB DEVELOPER remained 17 ml , retuned to Pharmacy.
--- NOTE | 2020-03-09 19:15 | NUR ---
Opening Shift Note Received report from MELYSSA Lynn and assumed care of patient, awake and alert. No S/S of distress/SOB . Patient on SOCIAL SERVICE WORKER Dilaudid and ongoing IV chemotherapy treatment. Patient educate re : SOCIAL SERVICE WORKER .Instructed patient to call for assist if needed and patient verbalized understanding . Will continue to monitor .
--- NOTE | 2020-03-09 19:50 | NUR ---
Respiratory note: POX CHECK DONE AT THIS TIME. PT'S SPO2 94% ON 2L NC, RR 15, HR 91. NO S/S OF ANY RESPIRATORY DISTRESS NOTED.
[2020-03-10] VITALS (7 sets, daily range): BP systolic 97–117; BP diastolic 56–91
[2020-03-10] MEDS: MORPHINE SULF 30 mg ER tab PO SCH ×3 (05:35→21:57)
--- NOTE | 2020-03-10 07:20 | NUR ---
Opening Shift Note Assumed care of patient, awake and alert. No S/S of distress/SOB, Repots pain at 8-10 at all time, GUT CARRIER pump running, chemotherapy also running, Patient to go for radiation today. Instructed on POC and to call for assist PRN, will continue to monitor for changes Q1hr and PRN.
[2020-03-10] MEDS: Ensure HIGH Protein Chocolate 8oz Bottle PO SCH ×3 (08:33→18:30)
[2020-03-10] MEDS: HYDROmorphone HCL 2 MG/ML VL IV SCH ×2 (08:33→10:00)
--- NOTE | 2020-03-10 08:41 | NUR ---
[facility] here to take patient to radiation. Patient medicated as ordered. chemo therapy continues to run, Vs stable.
--- NOTE | 2020-03-10 09:45 | NUR ---
PT ON CONT PULSE OX MONITORING, PT ON 1L NC WITH SPO2 95%, HR 99, RR 15. AWAKE AND ALERT. WILL CONTINUE TO MONITOR PT.
[2020-03-10] MEDS: PANTOPRAZOLE 40 MG TAB PO SCH ×2 (10:16→22:14)
[2020-03-10] MEDS: levoFLOXacin 500 MG TAB PO SCH (10:16)
[2020-03-10] MEDS: FLUOROURACIL 2,000 MG in SODIUM CHLORIDE 0.9% 1,000 ML IV SCH (14:51)
--- NOTE | 2020-03-10 19:30 | NUR ---
Opening Shift Note Assumed care of patient, awake and alert. No S/S of distress/SOB or pain. Instructed on POC and to call for assist PRN, will continue to monitor for changes Q1hr and PRN.
--- NOTE | 2020-03-10 22:13 | NUR ---
Dilaudid PUBLIC HEALTH TECHNICIAN pump syringe changed witnessed by another RN, Dustin. Dilaudid syringe has 13 cc left, given to accredited pharmacy technician. Patient's pain level is 10 out of 10. Re-educated regarding PUBLIC HEALTH TECHNICIAN pump. All questions and concerns addressed. Patient verbalized understanding. Flourouracil IV still infusing. Care continued.
[2020-03-11 05:00] VITALS: BP 119/66
--- NOTE | 2020-03-11 06:30 | NUR ---
Patient's temperature at 101. Cooling measures started. Dr. Ca paged. Awaiting for call back. Report will be given to oncoming RN.
[2020-03-11] MEDS: MORPHINE SULF 30 mg ER tab PO SCH ×3 (06:32→23:11)
--- NOTE | 2020-03-11 07:32 | NUR ---
Opening Shift Note Assumed care of patient, awake and alert. No S/S of distress/SOB, reports pain at 8-9, etl analyst developer running, cooling measures in place. Instructed on POC and to call for assist PRN, will continue to monitor for changes Q1hr and PRN.
[2020-03-11] MEDS: HYDROmorphone HCL 2 MG/ML VL IV SCH (08:22)
[2020-03-11] MEDS: Ensure HIGH Protein Chocolate 8oz Bottle PO SCH ×3 (08:22→18:06)
[2020-03-11 08:45] VITALS: BP 127/68
[2020-03-11 10:29] LABS: Basophils # (auto) 0.1 10 ^3/uL (0-0.2); Basophils % (auto) 0.8 % (0.0-2.0); Eosinophils # (auto) 0 10 ^3/uL (0-0.8); Eosinophils % (auto) 0.1 % (0.0-7.0); Monocytes # (auto) 0.5 10 ^3/uL (0-1.3)
[2020-03-11 10:31] LABS: Hematocrit 32.4 % (41.0-53.0); Hemoglobin 10.5 g/dL (13.5-17.5); Lymphocytes # (auto) 0.4 10 ^3/uL (0.4-5.4); Lymphocytes % (auto) 4.5 % (10.0-50.0); Mean Corpuscular Hemoglobin 26.3 pg (28.0-32.0); Mean Corpuscular Hgb Conc. 32.2 g/dL (32.0-36.0); Mean Corpuscular Volume 81.5 fL (80.0-100.0); Monocytes % (auto) 5.7 % (0.0-12.0); Neutrophils # (auto) 8.3 10 ^3/uL (1.6-8.6); Neutrophils % (auto) 88.9 % (37.0-80.0); Platelet Count (auto) 364 10^3/uL (140-450); Red Blood Cells 3.98 10^6/uL (4.5-5.90); Red Cell Distribution Width 16.1 % (11.8-14.3); White Blood Cell 9.3 10^3/uL (4.4-10.8)
[2020-03-11] MEDS: levoFLOXacin 500 MG TAB PO SCH (10:34)
[2020-03-11] MEDS: PANTOPRAZOLE 40 MG TAB PO SCH ×2 (10:34→23:11)
[2020-03-11 11:02] LABS: Albumin 2.2 g/dL (3.4-5.0); Potassium 3.9 mmol/L (3.5-5.1)
[2020-03-11 11:07] LABS: BUN/Creatinine Ratio 18.2; Bilirubin, Total 1.2 mg/dL (0.2-1.0); Total Protein 7.2 g/dL (6.4-8.2)
--- NOTE | 2020-03-11 11:14 | NUR ---
PATIENT REFUSED PT. MELYSSA AMIN WAS NOTIFIED. Addendum: 03/11/20 at 1114 by KAMI BRAVO PTT Amended: Links added.
--- NOTE | 2020-03-11 11:19 | NUR ---
Nutrition Followup Notes Wt: 92.0 kg Pt was awake with guards at bedside when rounded this morning. Pt is with a Regular diet, appetite is fair aeb 50% PO intake over 3 meals per RN doc. Pt stated he intentionally limits his intake d/t excessive BM frequency. Noted pt is scheduled for radiation and chemo treatment. Will continue to monitor PO status, skin status, pertinent labs and weight trends. Will f/u in 3-5 days. Est Energy needs: 7350-6373 kcals (17-20 kcal/kgBW), Est Protein needs: 109-145 gms/day (1.5-2.0 gm/kgIBW) d/t pt adiposity. Will continue to monitor and reassess prn. Labs: Na 132 L, Ca 8.0L, Alb 2.2L BM: Pt had 1 BM on 03/10 per RN doc. Skin: BS 15 mod low risk, full details in child care counselor doc. PES: 1) Obesity aeb 129% IBW and BMI of 30.7 kg/m2 r/t energy intake in excess of energy needs 2) Altered nutrition related lab values aeb hyponatremia, mod hypoalbuminemia r/t current medical condition Comments Will continue to closely monitor pertinent labs, PO intake and skin status prn. Will followup in 3-5 days 1)Continue to closely monitor pt PO intake to meet at least 75% of meals. 2) Continue current plan of care
--- NOTE | 2020-03-11 11:25 | NUR ---
RT NOTE: NO S/S OF RESPIRATORY DISTRESS NOTED. PT. HR 107, RR 18, POX 95% R/A.
[2020-03-11 13:00] VITALS: BP 128/80
[2020-03-11] MEDS: FLUOROURACIL 2,000 MG in SODIUM CHLORIDE 0.9% 1,000 ML IV SCH (14:55)
--- NOTE | 2020-03-11 16:06 | NUR ---
Midline Placement: Patient educated on need for midline placement. All risks and benefits explained and all questions and concerns addresses prior to procedure. 18g/10cm midline inserted via right basilic vein using Ultrasound. Sterile technique utilized. Blood return obtained from lumen and flushed easily with NS using proper technique. Midline secured with saline lock; biodisc and occlusive dressing applied. Primary RN notified. Midline lot #[id number]
[2020-03-11 16:44] VITALS: BP 110/70
--- NOTE | 2020-03-11 19:30 | NUR ---
Opening Shift Note Assumed care of patient, awake and alert. Patient is on 5-Fluorouracil at 43.33 ml/hr thru port-a-cath and dilaudid BILLING COLLECTIONS SPECIALIST pump thru right upper arm midline. No S/S of distress/SOB. Instructed on POC and to call for assist PRN, will continue to monitor for changes Q1hr and PRN.
[2020-03-11 22:00] VITALS: BP 115/64
[2020-03-12 05:00] VITALS: BP 118/66
[2020-03-12] MEDS: MORPHINE SULF 30 mg ER tab PO SCH ×3 (06:13→22:10)
--- NOTE | 2020-03-12 06:20 | NUR ---
Dilaudid syringe for COIN BOX INSPECTOR pump changed witnessed by another RN Janneth. Care continued.
--- NOTE | 2020-03-12 07:25 | NUR ---
Opening Shift Note Assumed care of patient, awake and alert. No S/S of distress or SOB noted at this time, currently on room air, Currently infusing Fluorouracil to right upper asim cath, site patent and benign, no redness, swelling or pain reported to site, right upper arm midline is infusing Dilaudid via ENTRY LEVEL SOFTWARE DEVELOPER pump, site patent and benign. Skin assessed to wrist and ankles for skin breakdown r/t cuffs, none noted. Instructed on POC and to call for assist PRN, will continue to monitor for changes Q1hr and PRN.
--- NOTE | 2020-03-12 07:30 | NUR ---
Dilaudid syringe for TALENT ACQUISITION PROGRAM MANAGER pump, 10 ml left, wasted with another RN Cande Perez as instructed by pharmacist. Report given to MELYSSA Castellon.
[2020-03-12 08:00] VITALS: BP 127/76
[2020-03-12] MEDS: Ensure HIGH Protein Chocolate 8oz Bottle PO SCH ×3 (08:00→18:46)
[2020-03-12 09:00] VITALS: BP 127/76
[2020-03-12] MEDS: HYDROmorphone HCL 2 MG/ML VL IV SCH (09:24)
--- NOTE | 2020-03-12 09:47 | NUR ---
PT OFF UNIT/ON ROUTE TO [facility] PT TRANSPORTED VIA GURNEY, PT AXOX4, MEDICATED WITH DILAUDID 2MG IV ORDERED, NO DISTRESS NOTED AT THIS TIME,CONT CARE
--- NOTE | 2020-03-12 11:35 | NUR ---
PT BACK FROM [facility] PT AWAKE, AXOX4, NO DISTRESS NOTED, CONT WITH DILAUDID SUPERVISOR ESTERS AND EMULSIFIERS AND FLUOROURACIL ORDERED, C/O PAIN 06/12, CONT TO CLOSELY MONITOR FOR S/S, CONT CARE
[2020-03-12] MEDS: PANTOPRAZOLE 40 MG TAB PO SCH ×2 (11:45→22:10)
[2020-03-12] MEDS: levoFLOXacin 500 MG TAB PO SCH (11:46)
--- NOTE | 2020-03-12 11:53 | NUR ---
FAMILY FAMILY HERE, CALLED SNF AND SPOKE WITH MRS JACKMAN (STENO TYPIST), REGARDING OBTAINING APPROVAL LETTER, AWAITING FAX LETTER
--- NOTE | 2020-03-12 12:40 | NUR ---
ORAL INTAKE PT HAS NO C/O MOUTH SORES OR ANY DISCOMFORT OF PAIN WHEN EATING, PT INSTRUCTED TO NOTIFY STAFF IF HE DEVELOPS ANY MOUTH ULCERATION, OR C/O N/V, PT VERBALIZED UNDERSTANDING,CONT CARE
[2020-03-12 13:00] VITALS: BP 134/71
[2020-03-12] MEDS: FLUOROURACIL 2,000 MG in SODIUM CHLORIDE 0.9% 1,000 ML IV SCH (14:37)
--- NOTE | 2020-03-12 14:50 | NUR ---
AT BEDSIDE DR JIMENEZ AT BEDSIDE, DISCUSSING POC WITH PT, MD AWARE PT HAVING LOOSE STOOL, AND SODIUM 129, NO NEW ORDERS RECEIVED, CONT CARE Addendum: 03/12/20 at 2003 by Cande Bonilla RN DR JIMENEZ WAS INFORMED PT HAD A LOW GRADE TEMP ON 03/11 AND NONE NOTED TODAY
--- NOTE | 2020-03-12 16:20 | NUR ---
2nd attempt made for PT treatment. Pt requested to return in the morning.
--- NOTE | 2020-03-12 16:55 | NUR ---
AT BEDSIDE DR MCCRAY AT BEDSIDE, DISCUSSING POC, PT AWAKE, AXOX4, NO DISTRESS NOTED AT THIS TIME
[2020-03-12 17:00] VITALS: BP 141/88
--- NOTE | 2020-03-12 19:30 | NUR ---
Respiratory note: POX CHECK DONE AT THIS TIME. PT'S SPO2 96% ON RA, RR 18, HR 97. NO S/S OF ANY RESPIRATORY DISTRESS NOTED.
--- NOTE | 2020-03-12 19:35 | NUR ---
Opening Shift Note Assumed care of patient, awake and alert. Patient is on 5-Fluorouracil at 43.33 ml/hr thru port-a-cath and dilaudid ASSOCIATE SCIENTIST pump thru right upper arm midline. No S/S of distress/SOB. Instructed on POC and to call for assist PRN, will continue to monitor for changes Q1hr and PRN.
[2020-03-12 22:00] VITALS: BP 110/63
[2020-03-13 05:00] VITALS: BP 103/62
--- NOTE | 2020-03-13 05:10 | NUR ---
Dilaudid syringe for HI LO DRIVER pump, 19 ml left, wasted with another RN Pauline Bernstein as instructed by pharmacist. Care continued.
[2020-03-13 05:21] LABS: Eosinophils # (auto) 0 10 ^3/uL (0-0.8); Monocytes # (auto) 0.5 10 ^3/uL (0-1.3)
[2020-03-13 05:24] LABS: Basophils # (auto) 0.1 10 ^3/uL (0-0.2); Basophils % (auto) 0.7 % (0.0-2.0); Eosinophils % (auto) 0.6 % (0.0-7.0); Hematocrit 28.3 % (41.0-53.0); Hemoglobin 9.2 g/dL (13.5-17.5); Lymphocytes # (auto) 0.5 10 ^3/uL (0.4-5.4); Lymphocytes % (auto) 6.9 % (10.0-50.0); Mean Corpuscular Hemoglobin 26.8 pg (28.0-32.0); Mean Corpuscular Hgb Conc. 32.5 g/dL (32.0-36.0); Mean Corpuscular Volume 82.6 fL (80.0-100.0); Monocytes % (auto) 6.3 % (0.0-12.0); Neutrophils # (auto) 6.1 10 ^3/uL (1.6-8.6); Neutrophils % (auto) 85.5 % (37.0-80.0); Platelet Count (auto) 306 10^3/uL (140-450); Red Blood Cells 3.42 10^6/uL (4.5-5.90); Red Cell Distribution Width 16.2 % (11.8-14.3); White Blood Cell 7.2 10^3/uL (4.4-10.8)
[2020-03-13 05:37] LABS: Albumin 1.9 g/dL (3.4-5.0); BUN/Creatinine Ratio 18.5; Calcium 8.1 mg/dL (8.5-10.1); Potassium 3.7 mmol/L (3.5-5.1)
[2020-03-13 05:40] LABS: Bilirubin, Total 1.3 mg/dL (0.2-1.0); Total Protein 6.6 g/dL (6.4-8.2)
[2020-03-13] MEDS: MORPHINE SULF 30 mg ER tab PO SCH ×3 (07:08→22:00)
--- NOTE | 2020-03-13 07:30 | NUR ---
Report given to MELYSSA Underwood.
--- NOTE | 2020-03-13 07:42 | NUR ---
Opening Shift Note Assumed care of patient, awake and alert. No S/S of distress/SOB, reports pain at 9-10. PSA intact. Instructed on POC and to call for assist PRN, will continue to monitor for changes Q1hr and PRN.
[2020-03-13 08:30] VITALS: BP 100/64
[2020-03-13] MEDS: Ensure HIGH Protein Chocolate 8oz Bottle PO SCH ×3 (09:44→16:57)
[2020-03-13] MEDS: HYDROmorphone HCL 2 MG/ML VL IV SCH (09:50)
[2020-03-13] MEDS: levoFLOXacin 500 MG TAB PO SCH (09:50)
[2020-03-13] MEDS: PANTOPRAZOLE 40 MG TAB PO SCH ×2 (09:50→21:51)
[2020-03-13 13:16] VITALS: BP 111/72
[2020-03-13] MEDS: FLUOROURACIL 2,000 MG in SODIUM CHLORIDE 0.9% 1,000 ML IV SCH (15:32)
[2020-03-13 16:30] VITALS: BP 128/65
[2020-03-13 22:00] VITALS: BP 107/72
[2020-03-14 05:00] VITALS: BP 111/60
[2020-03-14] MEDS: MORPHINE SULF 30 mg ER tab PO SCH ×4 (05:22→21:10)
--- NOTE | 2020-03-14 07:23 | NUR ---
Opening Shift Note Assumed care of patient, awake and alert. No S/S of distress/SOB, reports chronic pain 9-10, cone winder in place. Encouraged to move from side to side to help prevent skin issues, verbilized understanding. Instructed on POC and to call for assist PRN, will continue to monitor for changes Q1hr and PRN.
--- NOTE | 2020-03-14 08:10 | NUR ---
Respiratory note: POX CHECKED AT THIS TIME. PT ON ROOM AIR SP02 96%, HR 84.B/S ARE CLEAR. PT IN NO DISTRESS AT THIS TIME.
[2020-03-14] MEDS: Ensure HIGH Protein Chocolate 8oz Bottle PO SCH ×3 (08:40→18:10)
[2020-03-14] MEDS: HYDROmorphone HCL 2 MG/ML VL IV SCH (08:40)
[2020-03-14 09:00] VITALS: BP 114/72
--- NOTE | 2020-03-14 10:00 | NUR ---
Attempted PT treatment, pt states he would like to wait until chemotherapy infusion is completed. Pt was educated on importance of OOB activities to improve side effects of chemotherapy and radiation. He verbalized understanding and agreed to treatment in the afternoon. Will attempt again.
[2020-03-14] MEDS: levoFLOXacin 500 MG TAB PO SCH (10:59)
[2020-03-14] MEDS: PANTOPRAZOLE 40 MG TAB PO SCH ×2 (11:00→21:10)
--- NOTE | 2020-03-14 12:20 | NUR ---
Nutrition Followup Notes Wt: 94.5 kg Pt is on precautions. Pt appetite has improved aeb pt with avg po intake of 85% per RN note. Noted pt is scheduled for radiation and chemo treatment. Will continue to monitor PO status, skin status, pertinent labs and weight trends. Will f/u in 3-5 days. Est Energy needs: 7121-7887 kcals (17-20 kcal/kgBW), Est Protein needs: 109-145 gms/day (1.5-2.0 gm/kgIBW) d/t pt adiposity. Will continue to monitor and reassess prn. Labs: Creat 0.54L, Ca 8.1L, Alb 1.9L BM: Pt had 7 BMs on 03/14 per RN doc. Skin: BS 19 low risk, full details in healthcare network pricing consultant doc. PES: 1) Obesity aeb 129% IBW and BMI of 30.7 kg/m2 r/t energy intake in excess of energy needs 2) Altered nutrition related lab values aeb hyponatremia, mod hypoalbuminemia r/t current medical condition Comments Will continue to closely monitor pertinent labs, PO intake and skin status prn. Will followup in 3-5 days 1)Continue to closely monitor pt PO intake to meet at least 75% of meals. 2) Continue current plan of care
[2020-03-14 13:00] VITALS: BP 121/65
--- NOTE | 2020-03-14 15:40 | NUR ---
PATIENT COMPLETED FIRST CYCLE OF CHEMO, NEXT CYCLE TO BEGIN ON 04/06/20. PATIENT EDUCATED ON SIDE EFFECTS AND PAIN CONTROL.
[2020-03-14 17:05] VITALS: BP 99/57
[2020-03-14 22:00] VITALS: BP 106/63
--- NOTE | 2020-03-14 22:30 | NUR ---
Changed Dilaudid TRAVEL PT syringe and wasted 19.59ml left
[2020-03-15 05:00] VITALS: BP 107/56
[2020-03-15] MEDS: MORPHINE SULF 30 mg ER tab PO SCH ×3 (05:55→21:08)
--- NOTE | 2020-03-15 06:40 | NUR ---
Respiratory note: POX CHECKED AT THIS TIME. PT ON ROOM AIR SP02 94% HR 90 RR 16. NO RESPIRATORY DISTRESS NOTED. GUARDS AT BEDSIDE.
--- NOTE | 2020-03-15 07:02 | NUR ---
OPENING SHIFT NOTE Assumed care of patient from table games shift manager RN. Patient is an inmate, guards at bedside. He was updated on the plan of care and verbalized understanding. Roblero noted draining clear yellow urine to gravity, no kinks or loops noted in the tubing. Bed is locked, in the lowest position, side rails up x2 and call light is in reach. Bed is locked, in the lowest position, side rails up x2 and call light is in reach. Patient was encouraged to call for assistance as needed.
[2020-03-15 08:00] VITALS: BP 112/71
[2020-03-15] MEDS: Ensure HIGH Protein Chocolate 8oz Bottle PO SCH ×3 (08:42→18:35)
--- NOTE | 2020-03-15 09:05 | NUR ---
SPOKE WITH Marilynn FROM [facility] Per retail shift supervisor [facility] will be late picking up the patient for radiation treatment. Notified Marilynn from [facility], they will still be able to administer treatment today.
--- NOTE | 2020-03-15 09:14 | NUR ---
TONY AT BEDSIDE updated on the patient status, plan of care discussed with the patient and he verbalized understanding. New order received for Ambien 5mg PO hsPRN. Order read back and verified, will input.
[2020-03-15] MEDS: HYDROmorphone HCL 2 MG/ML VL IV SCH (09:33)
[2020-03-15] MEDS: PANTOPRAZOLE 40 MG TAB PO SCH ×2 (09:33→21:10)
[2020-03-15] MEDS: levoFLOXacin 500 MG TAB PO SCH (09:33)
--- NOTE | 2020-03-15 09:40 | NUR ---
[facility] AT BEDSIDE To transport patient to [place] for radiation. No signs of distress noted on departure, medications given as ordered before patient departed.
[2020-03-15 12:00] VITALS: BP 125/73
--- NOTE | 2020-03-15 12:12 | NUR ---
PATIENT BACK IN ROOM from [place], no signs of distress noted. patient hooked back up to SPREADER OPERATOR AUTOMATIC pump.
--- NOTE | 2020-03-15 12:32 | NUR ---
patient gone at radiation Addendum: 03/15/20 at 1233 by RENETTA SHAH RN Amended: Links added.
--- NOTE | 2020-03-15 12:40 | NUR ---
patient off unit at radiation. Addendum: 03/15/20 at 1241 by RENETTA SHAH RN Amended: Links added.
--- NOTE | 2020-03-15 13:42 | NUR ---
CALL FROM LONGTERM MD after verification of password he was updated on the patient status and the plan of care and verbalized understanding. All questions answered.
[2020-03-15 17:00] VITALS: BP 124/75
[2020-03-15 22:00] VITALS: BP 121/69
[2020-03-15] MEDS: ZOLPIDEM TARTRATE 5 MG TAB PO PRN (23:33)
[2020-03-16 05:00] VITALS: BP 116/66
[2020-03-16] MEDS: MORPHINE SULF 30 mg ER tab PO SCH ×3 (05:50→22:30)
--- NOTE | 2020-03-16 07:02 | NUR ---
OPENING SHIFT NOTE Assumed care of patient from shift mechanic RN. Patient is an inmate, guards at bedside. He was updated on the plan of care and verbalized understanding. Cuffs noted to left wrist and bilateral lower extremities, no skin breakdown or circulatory issues noted. Roblero noted draining clear yellow urine to gravity, no kinks or loops noted in the tubing. Bed is locked, in the lowest position, side rails up x2 and call light is in reach. Patient was encouraged to call for assistance as needed.
[2020-03-16] MEDS: Ensure HIGH Protein Chocolate 8oz Bottle PO SCH ×3 (07:50→18:49)
[2020-03-16 08:00] VITALS: BP_SYST 126; BP_DIAS 73; BP_DIAS 78
[2020-03-16] MEDS: levoFLOXacin 500 MG TAB PO SCH (08:22)
[2020-03-16] MEDS: PANTOPRAZOLE 40 MG TAB PO SCH ×2 (08:22→22:30)
[2020-03-16] MEDS: HYDROmorphone HCL 2 MG/ML VL IV SCH (08:39)
--- NOTE | 2020-03-16 08:47 | NUR ---
[facility] AT BEDSIDE To transport patient to [place] for radiation. No signs of distress noted on departure, medications given as ordered before patient departed.
--- NOTE | 2020-03-16 10:08 | NUR ---
PATIENT BACK IN ROOM from [place], no signs of distress noted. patient hooked back up to NEMATOLOGY TEACHER pump.
[2020-03-16 12:00] VITALS: BP 123/75
--- NOTE | 2020-03-16 12:48 | NUR ---
TONY AT BEDSIDE updated on patient status, patient updated on plan of care, per she is cleared for DC. Addendum: 03/16/20 at 1304 by RENETTA SHAH RN wrong patient.
--- NOTE | 2020-03-16 12:48 | NUR ---
TONY AT BEDSIDE He was updated on the patient status, plan of care discussed with the patient and he verbalized understanding. New orders for Oramorph 60 mg at 0600 and 1400 and 90mg at 2200. Orders read back and verified.
[2020-03-16 17:00] VITALS: BP 120/76
--- NOTE | 2020-03-16 21:10 | NUR ---
Respiratory note: POX CHECKED AT THIS TIME. PT ON RA SP02 96%, HR 103, RR 18, B/S ARE CLEAR T/O. PT IN NO DISTRESS AT THIS TIME.
[2020-03-16 21:40] VITALS: BP 116/74
[2020-03-16] MEDS: ZOLPIDEM TARTRATE 5 MG TAB PO PRN (23:37)
[2020-03-17 04:58] VITALS: BP 121/72
[2020-03-17] MEDS: MORPHINE SULF 30 mg ER tab PO SCH ×3 (06:01→22:59)
--- NOTE | 2020-03-17 08:00 | NUR ---
OPENING SHIFT NOTE: PATIENT AWAKE RESTING IN BED, EATING BREAKFAST. A/OX4 RESPIRATIONS EVEN AND UNLABORED. UPDATED ON PLAN OF CARE. CALL LIGHT WITHIN REACH, FALL PRECAUTIONS IN PLACE, GUARDS AT BEDSIDE, WILL CONTINUE TO MONITOR.
[2020-03-17] MEDS: HYDROmorphone HCL 2 MG/ML VL IV SCH (08:15)
[2020-03-17] MEDS: Ensure HIGH Protein Chocolate 8oz Bottle PO SCH ×2 (08:15→13:50)
--- NOTE | 2020-03-17 08:20 | NUR ---
PATIENT TAKEN TO [facility]: DILAUDID PAIN MEDICATION GIVEN ORDERED, PATIENT RAFFY-CARE COMPLETED AND CASTRO EMPTIED PRIOR TO LEAVING.
--- NOTE | 2020-03-17 09:00 | NUR ---
Respiratory note: PT NOT IN ROOM FOR O2 CHECK. WILL FOLLOW UP.
[2020-03-17 09:01] VITALS: BP 116/73
--- NOTE | 2020-03-17 09:44 | NUR ---
PATIENT BACK IN UNIT FROM RADIATION CLINIC.
[2020-03-17] MEDS: PANTOPRAZOLE 40 MG TAB PO SCH ×2 (10:16→23:00)
[2020-03-17] MEDS: levoFLOXacin 500 MG TAB PO SCH (10:16)
--- NOTE | 2020-03-17 11:31 | NUR ---
MIDLINE DRESSING CHANGED.
[2020-03-17 11:40] VITALS: BP 114/74
--- NOTE | 2020-03-17 12:05 | NUR ---
Nutrition Followup Notes Wt: 96.0 kg Pt is with a Regular diet, appetite is good aeb avg 75% PO intake over 4 meals per RN doc. Pt with no distress. Will continue to monitor PO status, skin status, pertinent labs and weight trends. Will f/u in 3-5 days. Est Energy needs: 9652-8925 kcals (17-20 kcal/kgBW), Est Protein needs: 109-145 gms/day (1.5-2.0 gm/kgIBW) d/t pt adiposity. Will continue to monitor and reassess prn. Labs: Na 135 L Ca 8.1 L, Alb 1.9 L BM: Pt had 7 BMs on 03/17 per RN doc. Skin: BS 18 mod risk, full details in morning caregiver doc. PES: 1) Obesity r/t energy intake in excess of energy needs aeb 129% IBW and BMI of 30.7 kg/m2 2) Altered nutrition related lab values r/t current medical condition aeb hyponatremia, mod hypoalbuminemia Comments Will continue to closely monitor pertinent labs, PO intake and skin status prn. Will followup in 3-5 days 1)Continue to closely monitor pt PO intake to meet at least 75% of meals. 2) Continue current plan of care
[2020-03-17 16:50] VITALS: BP 109/71
--- NOTE | 2020-03-17 19:16 | NUR ---
CARE ENDORSED TO NOC RN. AUTOMOBILE TRAVEL CLUB COUNSELOR SYRINGE DELIVERED DURING CHANGE OF SHIFT AND GIVEN TO NOC RN.
--- NOTE | 2020-03-17 20:10 | NUR ---
Dilaudid CD MANUFACTURING SUPERVISOR changed wasted . with Kike RAGSDALE.
[2020-03-17 22:00] VITALS: BP 121/76
[2020-03-18 05:00] VITALS: BP 121/81
[2020-03-18] MEDS: MORPHINE SULF 30 mg ER tab PO SCH ×3 (06:23→22:37)
--- NOTE | 2020-03-18 07:29 | NUR ---
Opening Shift Note Assumed care of patient, awake and alert. No S/S of distress/SOB, reports chronic body and lt hip pain. Instructed on POC and to call for assist PRN, will continue to monitor for changes Q1hr and PRN.
--- NOTE | 2020-03-18 07:51 | NUR ---
Respiratory note: PT AWAKE, AND ALERT. SPO2 92% ON RA, HR 94, RR 18, BS CLEAR BILATERALLY. PT IS CUFFED TO BED RAIL, GUARDS AT BEDSIDE. NO RESPIRATORY DISTRESS NOTED. NO FURTHER RESPIRATORY INTERVENTION INDICATED. WILL CONTINUE TO MONITOR PT.
[2020-03-18] MEDS: Ensure HIGH Protein Chocolate 8oz Bottle PO SCH ×4 (08:26→18:20)
[2020-03-18] MEDS: HYDROmorphone HCL 2 MG/ML VL IV SCH (08:26)
[2020-03-18 08:44] VITALS: BP 115/70
[2020-03-18] MEDS: levoFLOXacin 500 MG TAB PO SCH (10:55)
[2020-03-18] MEDS: PANTOPRAZOLE 40 MG TAB PO SCH ×2 (10:55→22:37)
[2020-03-18 12:46] VITALS: BP 115/76
--- NOTE | 2020-03-18 16:15 | NUR ---
PATIENT UNABLE TO VOID AFTER CASTRO DISCONTINUED. BLADDER SCANNED 683ML NOTED, NEW CASTRO TO BE PLACED, MD AWARE PATIENT NOTIFIED.
[2020-03-18 16:17] VITALS: BP 122/74
--- NOTE | 2020-03-18 19:30 | NUR ---
Opening Shift Note Assumed care of patient, awake and alert. on BEAM BUILDER HELPER dilaudid. Insructed on POC and to call for assist PRN, will continue to monitor for changes Q1hr and PRN.
[2020-03-18 21:49] VITALS: BP 117/75
--- NOTE | 2020-03-18 21:54 | NUR ---
Respiratory note: Found pt off continuous POX monitor. Placed pt back on continuous POX monitor at bedside, plugged into red outlet. HR 87, RR 20, SPO2 93% on room air. Alarms set and audible. No s/s of distress.
--- NOTE | 2020-03-18 23:18 | NUR ---
Changed Dilaudid MANAGER AMBULATORY syringe. Wasted 13.73ml.
[2020-03-19 05:30] VITALS: BP 117/72
[2020-03-19] MEDS: MORPHINE SULF 30 mg ER tab PO SCH ×3 (05:48→21:29)
[2020-03-19] MEDS: Ensure HIGH Protein Chocolate 8oz Bottle PO SCH ×3 (08:11→18:33)
[2020-03-19 08:55] VITALS: BP 119/70
--- NOTE | 2020-03-19 09:00 | NUR ---
Transportation for Radiation Paged block and case maker regarding transportation for patient. Awaiting response.
--- NOTE | 2020-03-19 09:58 | NUR ---
Irving Swartz Spoke with Yenny to notify her that transportation has not come in to case picker patient, there is another opening 12:45 so if patient can't make that time then they may have to do treatment on Sunday.
[2020-03-19] MEDS: PANTOPRAZOLE 40 MG TAB PO SCH ×2 (10:14→21:29)
[2020-03-19] MEDS: levoFLOXacin 500 MG TAB PO SCH (10:14)
--- NOTE | 2020-03-19 10:37 | NUR ---
1035 03/19/20 - Contacted [facility] at [phone] requesting transportation for patient to [facility] for radiation treatment.
[2020-03-19] MEDS: HYDROmorphone HCL 2 MG/ML VL IV SCH (12:18)
--- NOTE | 2020-03-19 12:33 | NUR ---
Patient left with [facility] for radiation.
--- NOTE | 2020-03-19 12:45 | NUR ---
PT WENT FOR RADIATION. ATTEMPT P.T. LATER.
[2020-03-19 12:55] VITALS: BP 116/71
--- NOTE | 2020-03-19 13:47 | NUR ---
On Unit Patient brought back to unit from radiation.
--- NOTE | 2020-03-19 14:00 | NUR ---
Family members authorized to visit patient. Security will assist them to room. Guards at bedside aware.
--- NOTE | 2020-03-19 15:19 | NUR ---
Nutrition Followup Notes Wt: 92.2 kg Pt is with a Regular diet, appetite is fair aeb avg 67% PO intake over 3 meals per RN doc. Pt stated his appetite is lower d/t his concern about frequency of diarrhea. Will continue to monitor PO status, skin status, pertinent labs and weight trends. Will f/u in 3-5 days. Est Energy needs: 1512-7942 kcals (17-20 kcal/kgBW), Est Protein needs: 109-145 gms/day (1.5-2.0 gm/kgIBW) d/t pt adiposity. Will continue to monitor and reassess prn. Labs: Na 132 L Ca 8.1 L, Alb 1.9 L BM: Pt has a BM every 3-6 hrs per RN doc. Skin: BS 18 mod risk, full details in customer care assistant doc. PES: 1) Obesity r/t energy intake in excess of energy needs aeb 129% IBW and BMI of 30.7 kg/m2 2) Altered nutrition related lab values r/t current medical condition aeb hyponatremia, mod hypoalbuminemia Comments Will continue to closely monitor pertinent labs, PO intake and skin status prn. Will followup in 3-5 days 1)Continue to closely monitor pt PO intake to meet at least 75% of meals. 2) Continue current plan of care
[2020-03-19 16:51] VITALS: BP 120/72
--- NOTE | 2020-03-19 19:30 | NUR ---
Opening Shift Note Assumed care of patient, awake and alert. Instructed on POC and to call for assist PRN, will continue to monitor for changes Q1hr and PRN.
[2020-03-19] MEDS: DIPHENOXYLATE W/ATROPINE 2.5 MG TAB PO PRN (21:30)
[2020-03-19 22:00] VITALS: BP 125/74
[2020-03-20] MEDS: ZOLPIDEM TARTRATE 5 MG TAB PO PRN ×2 (01:04→23:02)
[2020-03-20 05:00] VITALS: BP 124/71
[2020-03-20] MEDS: MORPHINE SULF 30 mg ER tab PO SCH ×3 (05:44→22:07)
--- NOTE | 2020-03-20 07:30 | NUR ---
RECEIVED REPORT FROM NIGHT NURSE. PATIENT RESTING IN BED, SHACKLES TO BILATERAL ANKLES, SLIGHT REDNESS NOTED, NO OPEN WOUNDS. HANDCUFF TO RIGHT WRIST, SLIGHT REDNESS NOTED, NO OPEN WOUNDS SEEN. 2 GUARDS AT BEDSIDE. PATIENT DENIES PAIN AT THIS TIME. MIDDLEWARE CONSULTANT PUMP RUNNING. WILL CONTINUE TO MONITOR.
[2020-03-20] MEDS: Ensure HIGH Protein Chocolate 8oz Bottle PO SCH ×3 (08:00→18:00)
[2020-03-20 09:00] VITALS: BP 115/65
[2020-03-20] MEDS: HYDROmorphone HCL 2 MG/ML VL IV SCH (10:00)
--- NOTE | 2020-03-20 10:00 | NUR ---
Respiratory note: POX: HR 74, RR 18, SPO2 95% ON 1 L NC, BS SNORING.BEDSIDE POX AT BEDSIDE. PT IS SLEEPING.
--- NOTE | 2020-03-20 10:00 | NUR ---
MEDICATION HELD SCHEDULED DILAUDID FOR RADIATION HELD. NO RADIATION SCHEDULED TODAY. TRANSLITERATOR PUMP TO CONTINUE RUNNING.
[2020-03-20] MEDS: levoFLOXacin 500 MG TAB PO SCH (10:26)
[2020-03-20] MEDS: PANTOPRAZOLE 40 MG TAB PO SCH ×2 (10:26→22:07)
[2020-03-20 13:00] VITALS: BP 114/72
[2020-03-20 17:00] VITALS: BP 107/71
--- NOTE | 2020-03-20 18:05 | NUR ---
Respiratory note:O2 CHECK DONE, PT CURRENTLY ON NC1L. SPO2 94%,HR 71, RR 18. NO DISTRESS NOTED. PT SLEEPING AT THIS TIME. WILL CONTINUE TO MONITOR PT.
[2020-03-20 22:00] VITALS: BP 116/69
[2020-03-20] MEDS: DIPHENOXYLATE W/ATROPINE 2.5 MG TAB PO PRN (22:08)
[2020-03-21 05:00] VITALS: BP 124/76
[2020-03-21 05:20] LABS: Hematocrit 29.1 % (41.0-53.0); Hemoglobin 9.6 g/dL (13.5-17.5); Mean Corpuscular Hemoglobin 27.3 pg (28.0-32.0); Mean Corpuscular Hgb Conc. 32.9 g/dL (32.0-36.0); Mean Corpuscular Volume 82.8 fL (80.0-100.0); Platelet Count (auto) 350 10^3/uL (140-450); Red Blood Cells 3.52 10^6/uL (4.5-5.90); Red Cell Distribution Width 16.3 % (11.8-14.3); White Blood Cell 5.3 10^3/uL (4.4-10.8)
[2020-03-21 05:38] LABS: Potassium 3.8 mmol/L (3.5-5.1)
[2020-03-21 05:42] LABS: BUN/Creatinine Ratio 14.8; Basophils % (manual) 0 (0.0-2.0); Blast Cells 0; Calcium 7.8 mg/dL (8.5-10.1); Metamyelocytes % 0; Myelocytes % 0; Promyelocytes % 0; Reactive Lymphocytes 0
[2020-03-21] MEDS: MORPHINE SULF 30 mg ER tab PO SCH ×3 (05:43→22:11)
[2020-03-21 07:03] LABS: Band Neutrophils % (manual) 1; Eosinophils % (manual) 1 (0-7); Lymphocytes % (manual) 13 (10.0-50.0); Monocytes % (manual) 13 (0-12)
--- NOTE | 2020-03-21 07:30 | NUR ---
RECEIVED REPORT FROM NIGHT NURSE. PATIENT RESTING IN BED, SHACKLES TO BILATERAL ANKLES, SLIGHT REDNESS NOTED, NO OPEN WOUNDS. HANDCUFF TO LEFT WRIST, SLIGHT REDNESS NOTED, NO OPEN WOUNDS SEEN. 2 GUARDS AT BEDSIDE. WEB SITE PROJECT MANAGER PUMP RUNNING. WILL CONTINUE TO MONITOR.
[2020-03-21] MEDS: Ensure HIGH Protein Chocolate 8oz Bottle PO SCH ×3 (08:00→18:00)
[2020-03-21 08:29] VITALS: BP 118/75
[2020-03-21] MEDS: levoFLOXacin 500 MG TAB PO SCH (09:43)
[2020-03-21] MEDS: PANTOPRAZOLE 40 MG TAB PO SCH ×2 (09:43→22:10)
[2020-03-21] MEDS: HYDROmorphone HCL 2 MG/ML VL IV SCH (10:00)
--- NOTE | 2020-03-21 10:00 | NUR ---
MEDICATION HELD SCHEDULED DILAUDID FOR RADIATION HELD. NO RADIATION SCHEDULED TODAY. FOLDER HAND PUMP TO CONTINUE RUNNING.
[2020-03-21 13:06] VITALS: BP 145/82
[2020-03-21 17:29] VITALS: BP 129/82
--- NOTE | 2020-03-21 19:15 | NUR ---
Respiratory note: PT SEEN AND ASSESSED FOR CONTINUOUS PULSE OX CHECK. NO DISTRESS NOTED AT THIS TIME. HR 95 RR 18 SP02 95% ON 1L NASAL CANNULA.
--- NOTE | 2020-03-21 19:40 | NUR ---
Opening Shift Note Assumed care of patient, awake and alert. No S/S of distress/SOB or pain. On FOUNTAIN WAITRESS/WAITER pump fo Dilaudid. Instructed on POC and to call for assist PRN, patient verbalized understanding. Safety precaution in place, call light within reach, assisted guards at bedside, will continue to monitor for changes Q1hr and PRN.
[2020-03-21 20:00] VITALS: BP 114/74
[2020-03-21] MEDS: DIPHENOXYLATE W/ATROPINE 2.5 MG TAB PO PRN (22:10)
[2020-03-22 05:00] VITALS: BP 111/77
[2020-03-22] MEDS: MORPHINE SULF 30 mg ER tab PO SCH ×3 (06:36→21:43)
--- NOTE | 2020-03-22 07:15 | NUR ---
OPENING SHIFT NOTE: PATIENT AWAKE RESTING IN BED, EATING BREAKFAST. A/OX4 RESPIRATIONS EVEN AND UNLABORED.SENIOR ADVISORY PUMP RUNNING. UPDATED ON PLAN OF CARE. CALL LIGHT WITHIN REACH, FALL PRECAUTIONS IN PLACE, GUARDS AT BEDSIDE, WILL CONTINUE TO MONITOR.
[2020-03-22] MEDS: Ensure HIGH Protein Chocolate 8oz Bottle PO SCH ×3 (08:00→18:00)
[2020-03-22] MEDS: HYDROmorphone HCL 2 MG/ML VL IV SCH (08:15)
[2020-03-22] MEDS ORDERED: LIDOCAINE HCL 5 % TOP OINT 35 GM TOP PRN (08:45)
--- NOTE | 2020-03-22 08:45 | NUR ---
Respiratory note: WENT TO DO POX, PT NOT IN ROOM AT THIS TIME. PT HAVING RADIATION AT THIS TIME.
[2020-03-22 09:00] VITALS: BP 127/82
[2020-03-22] MEDS: levoFLOXacin 500 MG TAB PO SCH (10:00)
[2020-03-22] MEDS: PANTOPRAZOLE 40 MG TAB PO SCH ×2 (10:00→21:44)
--- NOTE | 2020-03-22 10:45 | NUR ---
PT WENT FOR RADIATION.
--- NOTE | 2020-03-22 11:32 | NUR ---
Nutrition Followup Notes Wt: 87.4 kg Pt`s off the floor for radiation per RN. pt is currently on regular diet with ensure HP tid with fair PO of avg 65% x 6 per RN doc. pt with no distress noted Est Energy needs: 0453-4769 kcals (17-20 kcal/kgBW), Est Protein needs: 109-145 gms/day (1.5-2.0 gm/kgIBW) d/t pt adiposity. Will continue to monitor and reassess prn. Labs: CA 7.8 L, ALB 1.9 L. BM: Pt had 5 BM today diarr per RN doc. Skin: BS 14 mod risk, full details in personal care home administrator doc. PES: 1) Obesity r/t energy intake in excess of energy needs aeb 129% IBW and BMI of 30.7 kg/m2 2) Altered nutrition related lab values r/t current medical condition aeb hyponatremia, mod hypoalbuminemia Comments Will continue to closely monitor pertinent labs, PO intake and skin status prn. Will followup in 3-5 days 1) Consider prostat 1 packet bid. 2) consider low lactose diet if diarr persists. 3) Continue to closely monitor pt PO intake to meet at least 75% of meals. 4) Continue current plan of care
[2020-03-22 17:00] VITALS: BP 114/79
[2020-03-22] MEDS: DIPHENOXYLATE W/ATROPINE 2.5 MG TAB PO PRN (19:00)
--- NOTE | 2020-03-22 19:20 | NUR ---
OPENING SHIFT NOTE ASSUMED CARE OF PATIENT. PATIENT IS AWAKE, ALERT, AND ORIENTED x 4. NO S/S OF RESPIRATORY DISTRESS NOTED. RESPIRATIONS ARE REGULAR AND NON-LABORED. BED IS IN LOWEST LOCKED POSITION, SIDE RAILS UP X 2, AND CALL LIGHT WITHIN REACH. CASTRO IS PATENT AND BELOW THE BLADDER. POC DISCUSSED WITH THE PATIENT. PATIENT INSTRUCTED TO CALL FOR ASSISTANCE NEEDED. WILL CONTINUE TO MONITOR Q1H AND PRN.
[2020-03-22 20:00] VITALS: BP 126/68
[2020-03-22] MEDS: ZOLPIDEM TARTRATE 5 MG TAB PO PRN (21:52)
[2020-03-22 22:00] VITALS: BP 131/87
[2020-03-23] MEDS: MORPHINE SULF 30 mg ER tab PO SCH ×3 (05:41→21:25)
[2020-03-23 05:53] VITALS: BP 140/78
[2020-03-23] MEDS: HYDROmorphone HCL 2 MG/ML VL IV SCH (08:27)
[2020-03-23] MEDS: Ensure HIGH Protein Chocolate 8oz Bottle PO SCH ×3 (08:27→18:00)
[2020-03-23 09:00] VITALS: BP 122/95
[2020-03-23] MEDS: PANTOPRAZOLE 40 MG TAB PO SCH ×2 (10:00→21:26)
[2020-03-23 12:57] VITALS: BP 11/66
[2020-03-23 12:58] VITALS: BP 104/67
[2020-03-23] MEDS: levoFLOXacin 500 MG TAB PO SCH (14:06)
[2020-03-23 17:00] VITALS: BP 119/76
--- NOTE | 2020-03-23 18:50 | NUR ---
PULSE OX CHECK. SPO2 96% ON .5L NC, HR 88. NO RESPIRATORY DISTRESS NOTED. GUARDS AT BEDSIDE.
--- NOTE | 2020-03-23 20:54 | NUR ---
SPECIFICATIONS WRITER MEDICATION New syringe of medication placed in SPECIFICATIONS WRITER pump, Witnessed by second RN. Waste 21.22 ml.
[2020-03-23] MEDS: DIPHENOXYLATE W/ATROPINE 2.5 MG TAB PO PRN (21:22)
[2020-03-23 22:00] VITALS: BP 113/76
[2020-03-24] MEDS: ZOLPIDEM TARTRATE 5 MG TAB PO PRN (01:39)
[2020-03-24 05:00] VITALS: BP 122/71
[2020-03-24] MEDS: MORPHINE SULF 30 mg ER tab PO SCH ×3 (05:57→22:50)
--- NOTE | 2020-03-24 07:15 | NUR ---
OPENING SHIFT NOTE: PATIENT AWAKE RESTING IN BED, EATING BREAKFAST. A/OX4 RESPIRATIONS EVEN AND UNLABORED.MAIL DELIVERER PUMP RUNNING. UPDATED ON PLAN OF CARE. CALL LIGHT WITHIN REACH, FALL PRECAUTIONS IN PLACE, GUARDS AT BEDSIDE, WILL CONTINUE TO MONITOR.
[2020-03-24] MEDS: Ensure HIGH Protein Chocolate 8oz Bottle PO SCH ×3 (08:00→18:24)
--- NOTE | 2020-03-24 08:15 | NUR ---
TAKEN TO RADIATION TREATMENT BY JADEN.
[2020-03-24] MEDS: HYDROmorphone HCL 2 MG/ML VL IV SCH (08:34)
[2020-03-24 09:00] VITALS: BP 113/79
[2020-03-24] MEDS: levoFLOXacin 500 MG TAB PO SCH (11:03)
[2020-03-24] MEDS: PANTOPRAZOLE 40 MG TAB PO SCH ×2 (11:03→22:51)
[2020-03-24] MEDS: DIPHENOXYLATE W/ATROPINE 2.5 MG TAB PO PRN (11:03)
[2020-03-24 13:00] VITALS: BP 121/76
[2020-03-24 17:00] VITALS: BP 144/84
--- NOTE | 2020-03-24 19:00 | NUR ---
Opening Note Assumed care of patient, awake and alert. No S/S of distress/SOB, patient reports pain 10/10 at all time. Instructed on POC and to call for assist PRN, will continue to monitor.
--- NOTE | 2020-03-24 19:34 | NUR ---
ENDORSED CARE TO ELIAS RAGSDALE PATIENT WILL RECIEVE A NEW SAND DIGGER PUMP TONIGHT AT APPROX 10PM
[2020-03-24 21:39] VITALS: BP 126/78
--- NOTE | 2020-03-24 21:40 | NUR ---
New SPORT SHOE SPIKE ASSEMBLER syringe Addendum: 03/24/20 at 2145 by ELIAS BEACH RN Witnessed by bret RAGSDALE, Wasted 17 ML
[2020-03-25 05:10] VITALS: BP 125/71
[2020-03-25] MEDS: MORPHINE SULF 30 mg ER tab PO SCH ×3 (06:40→22:23)
--- NOTE | 2020-03-25 07:30 | NUR ---
RECEIVED REPORT FROM NIGHT NURSE. PATIENT RESTING IN BED, NO DISTRESS NOTED. GUARDS X2 AT BEDSIDE. SHACKLES TO BILATERAL ANKLES. HANDCUFF TO LEFT WRIST. WILL CONTINUE TO MONITOR.
[2020-03-25] MEDS: HYDROmorphone HCL 2 MG/ML VL IV SCH (08:33)
--- NOTE | 2020-03-25 08:33 | NUR ---
PREMEDICATION PATIENT DISCONNECTED FROM THE PAPETERIE TABLE ASSEMBLER PUMP. SCHEDULED DILAUDID GIVEN PRIOR TO RADIATION.
[2020-03-25 09:00] VITALS: BP 115/61
--- NOTE | 2020-03-25 09:30 | NUR ---
RADIATION [facility] AT BEDSIDE. PATIENT BEING TRANSPORTED TO RADIATION.
[2020-03-25] MEDS: levoFLOXacin 500 MG TAB PO SCH (11:38)
[2020-03-25] MEDS: Ensure HIGH Protein Chocolate 8oz Bottle PO SCH ×3 (11:38→18:28)
[2020-03-25] MEDS: PANTOPRAZOLE 40 MG TAB PO SCH ×2 (11:38→22:23)
[2020-03-25] MEDS: DIPHENOXYLATE W/ATROPINE 2.5 MG TAB PO PRN ×2 (11:38→22:24)
[2020-03-25 13:05] VITALS: BP 116/66
--- NOTE | 2020-03-25 16:18 | NUR ---
Nutrition Followup Notes Wt: 88.3 kg Pt was with medical personnel with curtain drawn when rounded this morning. P t is currently on regular diet with fair PO intake aeb avg 56% over 4 meals per RN doc. Pt with no distress noted. Will continue to monitor PO status, skin status, pertinent labs and weight trends. Will f/u in 3-5 days. Est Energy needs: 3450-6458 kcals (17-20 kcal/kgBW), Est Protein needs: 109-145 gms/day (1.5-2.0 gm/kgIBW) d/t pt adiposity. Will continue to monitor and reassess prn. Labs: CA 7.8 L, ALB 1.9 L. BM: Pt is incontinent with diarr per RN doc. Skin: BS 15 mod risk, full details in wound care specialist doc. PES: 1) Obesity r/t energy intake in excess of energy needs aeb 129% IBW and BMI of 30.7 kg/m2 2) Altered nutrition related lab values r/t current medical condition aeb hyponatremia, mod hypoalbuminemia Comments Will continue to closely monitor pertinent labs, PO intake and skin status prn. Will followup in 3-5 days 1) Consider prostat 1 packet bid. 2) consider low lactose diet if diarr persists. 3) Continue to closely monitor pt PO intake to meet at least 75% of meals. 4) Continue current plan of care
[2020-03-25 17:00] VITALS: BP 127/74
--- NOTE | 2020-03-25 18:38 | NUR ---
SPOKE WITH DOCTOR JIMENEZ, MEDICATION DOSAGE CHANGE, WILL PLACE AND CARRY OUT.
[2020-03-25 22:18] VITALS: BP 110/74
[2020-03-25] MEDS: ZOLPIDEM TARTRATE 5 MG TAB PO PRN (22:23)
--- NOTE | 2020-03-25 22:24 | NUR ---
New HEAD BANQUET WAITER/WAITRESS syringe placed in HEAD BANQUET WAITER/WAITRESS pump, Witnessed by second RN wasted 18.9ML, Patient received 31.1 ML
[2020-03-25] MEDS: CHOLESTYRAMINE 4 GM POWDER PO SCH (23:25)
[2020-03-26 05:00] VITALS: BP 119/73
[2020-03-26] MEDS: MORPHINE SULF 30 mg ER tab PO SCH ×3 (05:18→21:47)
--- NOTE | 2020-03-26 06:34 | NUR ---
[facility] called, they requested the [facility] car to be on site once they dispatch the ambulance, I guess the day before they waited for the [facility] car for 90 min I communicated this to the guard on duty and he called right away to let them know in the unit.
[2020-03-26] MEDS: Ensure HIGH Protein Chocolate 8oz Bottle PO SCH ×3 (08:08→18:08)
[2020-03-26] MEDS: levoFLOXacin 500 MG TAB PO SCH (08:13)
[2020-03-26] MEDS: PANTOPRAZOLE 40 MG TAB PO SCH ×2 (08:13→21:47)
[2020-03-26] MEDS: DIPHENOXYLATE W/ATROPINE 2.5 MG TAB PO PRN (08:13)
[2020-03-26] MEDS: HYDROmorphone HCL 2 MG/ML VL IV SCH (08:22)
[2020-03-26 08:55] VITALS: BP 117/74
--- NOTE | 2020-03-26 10:00 | NUR ---
Patient transported by [facility] via stretcher with police escort for radiation to other facility. Patient in stable condition.
--- NOTE | 2020-03-26 12:15 | NUR ---
Patient back to room S/P Radiation via stretcher. Patient in stable condition. VS taken and recorded.
[2020-03-26] MEDS: CHOLESTYRAMINE 4 GM POWDER PO SCH ×2 (12:31→22:07)
[2020-03-26 12:35] VITALS: BP 118/72
--- NOTE | 2020-03-26 14:00 | NUR ---
PT DECLINED P.T. TODAY BECAUSE OF ONGOING DIARRHEA.
[2020-03-26 16:29] VITALS: BP 107/72
--- NOTE | 2020-03-26 19:01 | NUR ---
New Dilaudid BOWLING BALL WEIGHER AND PACKER syringe handed to assistant casino shift manager RN.
[2020-03-26] MEDS: ZOLPIDEM TARTRATE 5 MG TAB PO PRN (21:47)
[2020-03-26 22:00] VITALS: BP 112/74
--- NOTE | 2020-03-26 22:11 | NUR ---
GLASSWARE VERIFIER PUMP CHANGE PER MD ORDERS, GLASSWARE VERIFIER SYRINGE CHANGED AT THIS TIME (SEE EMAR) WITH DOUBLE VERIFICATION. WILL CONTINUE TO MONITOR.
[2020-03-27 05:00] VITALS: BP 118/67
[2020-03-27] MEDS: DIPHENOXYLATE W/ATROPINE 2.5 MG TAB PO PRN ×3 (05:54→21:51)
[2020-03-27] MEDS: MORPHINE SULF 30 mg ER tab PO SCH ×3 (05:54→22:16)
--- NOTE | 2020-03-27 07:47 | NUR ---
OPENING SHIFT NOTE Assumed care of patient. PT is awake and alert. No S/S of distress/SOB. Guards at bedside. Instructed on POC and to call for assist PRN. Bed is in low and locked position. Will continue to monitor for changes Q1hr and PRN.
[2020-03-27 09:00] VITALS: BP 100/63
[2020-03-27] MEDS: levoFLOXacin 500 MG TAB PO SCH (10:09)
[2020-03-27] MEDS: HYDROmorphone HCL 2 MG/ML VL IV SCH (10:09)
[2020-03-27] MEDS: Ensure HIGH Protein Chocolate 8oz Bottle PO SCH ×3 (10:09→18:17)
[2020-03-27] MEDS: PANTOPRAZOLE 40 MG TAB PO SCH ×2 (10:09→21:50)
[2020-03-27] MEDS: CHOLESTYRAMINE 4 GM POWDER PO SCH ×2 (10:10→22:16)
[2020-03-27 13:00] VITALS: BP 113/71
[2020-03-27 17:00] VITALS: BP 118/74
--- NOTE | 2020-03-27 19:45 | NUR ---
Opening Shift Note Assumed care of patient, awake and alert. Fall and safety precautions in place. Call light within reach and able to use. No S/S of distress/SOB. Guards at bedside. Instructed on POC and to call for assist PRN, patient verbalized understanding and in agreement. Will continue to monitor for changes Q1hr and PRN.
[2020-03-27 22:00] VITALS: BP 119/70
[2020-03-27] MEDS: ZOLPIDEM TARTRATE 5 MG TAB PO PRN (22:16)
--- NOTE | 2020-03-27 22:30 | NUR ---
CHIEF DOG LICENSE INSPECTOR PUMP CHANGE PER MD ORDERS, CHIEF DOG LICENSE INSPECTOR SYRINGE CHANGED AT THIS TIME (SEE EMAR) WITH DOUBLE VERIFICATION. WILL CONTINUE TO MONITOR.
[2020-03-28 05:00] VITALS: BP 112/63
[2020-03-28] MEDS: MORPHINE SULF 30 mg ER tab PO SCH ×3 (06:06→22:40)
--- NOTE | 2020-03-28 06:47 | NUR ---
Bed Bath Patient given bed bath. Patient tolerated well.
--- NOTE | 2020-03-28 07:50 | NUR ---
Opening Note Received report from manufacturing supervisor 2nd shift RN. Patient is awake, alert and oriented x4. No signs or symptoms of distress noted at this time. Patient states pain 10/10. Patient is on INSTRUMENT MAKER pump. Roblero catheter in place, patent and draining. Patient is on 2L NC, respirations even and unlabored. Reviewed plan of care with patient, patient verbalized understanding. Bed in low and locked position, call light within reach. Will continue to monitor Q1 hour and PRN. Two guards at bedside.
[2020-03-28 09:00] VITALS: BP 99/66
[2020-03-28] MEDS: HYDROmorphone HCL 2 MG/ML VL IV SCH (10:00)
[2020-03-28] MEDS: levoFLOXacin 500 MG TAB PO SCH (10:56)
[2020-03-28] MEDS: Ensure HIGH Protein Chocolate 8oz Bottle PO SCH ×3 (10:57→17:30)
[2020-03-28] MEDS: CHOLESTYRAMINE 4 GM POWDER PO SCH ×2 (11:21→22:40)
[2020-03-28 13:00] VITALS: BP 106/70
--- NOTE | 2020-03-28 13:17 | NUR ---
Patient ambulating in hallway with PT
[2020-03-28 17:00] VITALS: BP 103/64
--- NOTE | 2020-03-28 19:07 | NUR ---
Dilaudid LOSS PREVENTION OFFICER syringe LOSS PREVENTION OFFICER syringe handed to shackler Tenisha RAGSDALE, by this RN.
--- NOTE | 2020-03-28 19:08 | NUR ---
Closing Note Report given to shift foreman RN. No signs or symptoms of distress noted at this time. Guards at bedside.
[2020-03-28 22:00] VITALS: BP 107/68
[2020-03-28] MEDS: ZOLPIDEM TARTRATE 5 MG TAB PO PRN (22:40)
--- NOTE | 2020-03-28 22:40 | NUR ---
OUTSIDE PARTS SALES PUMP CHANGE PER MD ORDERS, OUTSIDE PARTS SALES SYRINGE CHANGED AT THIS TIME (SEE EMAR) WITH DOUBLE VERIFICATION. WILL CONTINUE TO MONITOR.
[2020-03-28] MEDS: DIPHENOXYLATE W/ATROPINE 2.5 MG TAB PO PRN (22:41)
[2020-03-29 05:00] VITALS: BP 104/62
[2020-03-29] MEDS: MORPHINE SULF 30 mg ER tab PO SCH ×3 (06:19→22:45)
--- NOTE | 2020-03-29 06:50 | NUR ---
PT CONNECTED TO BEDSIDE PULSE OX. SPO2 92% ON 2LNC.
--- NOTE | 2020-03-29 07:15 | NUR ---
Opening Note Received report from assembler 1st shift RN. Patient is awake, alert and oriented x4. No signs or symptoms of distress noted at this time. Patient is on 2L NC, respirations even and unlabored. Patient states pain 10/10. Patient is on FLEX O WRITER OPERATOR pump. Roblero catheter in place, patent and draining. Reviewed plan of care with patient, patient verbalized understanding. Bed in low and locked position, call light within reach. Will continue to monitor Q1 hour and PRN. Two guards at bedside.
[2020-03-29] MEDS: Ensure HIGH Protein Chocolate 8oz Bottle PO SCH ×3 (08:00→18:00)
[2020-03-29 09:00] VITALS: BP 106/55
[2020-03-29] MEDS: CHOLESTYRAMINE 4 GM POWDER PO SCH ×2 (09:14→22:47)
[2020-03-29] MEDS: levoFLOXacin 500 MG TAB PO SCH (09:14)
[2020-03-29] MEDS: HYDROmorphone HCL 2 MG/ML VL IV SCH (09:14)
--- NOTE | 2020-03-29 09:15 | NUR ---
Dr. Onur Ca at bedside Discussing plan of care with patient and this RN. No new orders received. Will continue to monitor Q1 hour and PRN. Guards at bedside.
--- NOTE | 2020-03-29 10:05 | NUR ---
Radiation Patient transported by [facility] for radiation outside the facility. Guards at bedside
--- NOTE | 2020-03-29 11:30 | NUR ---
S/p radiation Patient back to room, patient is s/p radiation. Transported by [facility]. Vital signs within normal limits. Patient reconnected to ART OBJECTS SALESPERSON pump. Patient cleaned and repositioned for comfort. Bed in low and locked position, call light within reach. Will continue to monitor Q1 hour and PRN. Guards at bedside.
--- NOTE | 2020-03-29 11:45 | NUR ---
Nutrition Followup Notes Wt: 87.6 kg Pt was off the floor for radiation tx. Pt is currently on regular diet with ensure HP tid with adequte PO of 75% x 6 per RN doc. Est Energy needs: 2366-9703 kcals (17-20 kcal/kgBW), Est Protein needs: 109-145 gms/day (1.5-2.0 gm/kgIBW) d/t pt adiposity. Will continue to monitor and reassess prn. Labs: CA 7.8 L, ALB 1.9 L BM: Pt had 8 BM yesterday diarrhoea per RN doc. Skin: BS 15 mod risk, full details in customer care assistant doc. PES: 1) Obesity r/t energy intake in excess of energy needs aeb 129% IBW and BMI of 30.7 kg/m2 2) Altered nutrition related lab values r/t current medical condition aeb hyponatremia, mod hypoalbuminemia Comments Will continue to closely monitor pertinent labs, PO intake and skin status prn. Will followup in 3-5 days 1) Consider prostat 1 packet bid. 2) consider low lactose diet if diarr persists. 3) Continue to closely monitor pt PO intake to meet at least 75% of meals. 4) Continue current plan of care
[2020-03-29 13:12] VITALS: BP 124/76
--- NOTE | 2020-03-29 15:59 | NUR ---
Pt declined 2 attempts for PT treatment due to fatigue and malaise from radiation. Will attempt again tomorrow.
[2020-03-29 17:32] VITALS: BP 114/72
--- NOTE | 2020-03-29 19:00 | NUR ---
Opening Shift Note Assumed care of patient, awake and alert. pt has fpc staff at bedside t/o shift. Instructed on POC and to call for assist PRN, will continue to monitor for changes Q1hr and PRN. bed in lowest and locked position with rails up x3. pt oriented to use of call light for assistance.
--- NOTE | 2020-03-29 19:20 | NUR ---
Closing Note Report given to night shift supervisor RN. No signs or symptoms noted at this time. Guards at bedside.
--- NOTE | 2020-03-29 21:45 | NUR ---
wasted pt's TELEVISION AUDIO ENGINEER dilauded with charge auditorDixie. 17 ml was wasted in the med room cactus waste bin.
[2020-03-29 22:00] VITALS: BP 115/67
[2020-03-30 05:31] VITALS: BP 128/74
--- NOTE | 2020-03-30 05:45 | NUR ---
Respiratory note: POX CHECK: PT IS AWAKE AND FIDGETING WITH HIS SHEETS. HR 100, RR 16, SPO2 95% ON 0.5 NC. NO SIGNS OR SYMPTOMS OF RESPIRATORY DISTRESS NOTED AT THIS TIME. GUARDS AT BEDSIDE.
[2020-03-30] MEDS: MORPHINE SULF 30 mg ER tab PO SCH ×4 (05:59→22:11)
[2020-03-30] MEDS: levoFLOXacin 500 MG TAB PO SCH (08:29)
[2020-03-30] MEDS: HYDROmorphone HCL 2 MG/ML VL IV SCH (08:29)
[2020-03-30 08:49] VITALS: BP 133/79
[2020-03-30] MEDS: Ensure HIGH Protein Chocolate 8oz Bottle PO SCH ×3 (09:01→17:02)
--- NOTE | 2020-03-30 10:28 | NUR ---
Received call from Dr. Fierro ([phone]) from the care home to inform that the care home will provide transportation for this pt to go to the radiation treatments starting tomorrow,
[2020-03-30] MEDS: CHOLESTYRAMINE 4 GM POWDER PO SCH ×2 (10:36→22:46)
[2020-03-30 12:47] VITALS: BP 128/74
--- NOTE | 2020-03-30 14:23 | NUR ---
FIRE CONTROL TECHNICIAN B pump Wasted 30 ml of Dilaudid from the FIRE CONTROL TECHNICIAN B pump syringe, witness with MELYSSA Kenny.
[2020-03-30 17:00] VITALS: BP 115/70
--- NOTE | 2020-03-30 19:15 | NUR ---
Opening Shift Note Assumed care of patient, awake and alert. pt has [facility] staff at bedside t/o shift. Instructed on POC and to call for assist PRN, will continue to monitor for changes Q1hr and PRN. bed in lowest and locked position with rails up x2. pt oriented to use of call light for assistance.
[2020-03-30 22:00] VITALS: BP 132/79
[2020-03-30] MEDS: DIPHENOXYLATE W/ATROPINE 2.5 MG TAB PO PRN (22:12)
[2020-03-30] MEDS ORDERED: CHOLESTYRAMINE 4 GM POWDER PO SCH (23:00)
[2020-03-31 04:53] VITALS: BP 111/74
[2020-03-31] MEDS: MORPHINE SULF 30 mg ER tab PO SCH ×3 (05:33→21:45)
[2020-03-31 06:36] LABS: Hematocrit 32.5 % (41.0-53.0); Hemoglobin 10.7 g/dL (13.5-17.5); Mean Corpuscular Hemoglobin 27.2 pg (28.0-32.0); Mean Corpuscular Volume 82.4 fL (80.0-100.0); Platelet Count (auto) 240 10^3/uL (140-450); Red Blood Cells 3.94 10^6/uL (4.5-5.90); Red Cell Distribution Width 17.7 % (11.8-14.3); White Blood Cell 4.1 10^3/uL (4.4-10.8)
[2020-03-31 06:43] LABS: Basophils % (manual) 0 (0.0-2.0); Blast Cells 0; Metamyelocytes % 0; Myelocytes % 0; Promyelocytes % 0; Reactive Lymphocytes 0
[2020-03-31 06:49] LABS: Albumin 2.3 g/dL (3.4-5.0); Potassium 3.6 mmol/L (3.5-5.1)
[2020-03-31 06:53] LABS: Bilirubin, Total 0.8 mg/dL (0.2-1.0); Total Protein 7.1 g/dL (6.4-8.2)
[2020-03-31 07:25] LABS: Band Neutrophils % (manual) 2; Eosinophils % (manual) 2 (0-7); Lymphocytes % (manual) 6 (10.0-50.0); Monocytes % (manual) 17 (0-12)
[2020-03-31] MEDS: Ensure HIGH Protein Chocolate 8oz Bottle PO SCH ×3 (08:00→18:16)
[2020-03-31] MEDS: HYDROmorphone HCL 2 MG/ML VL IV SCH (08:50)
[2020-03-31 09:00] VITALS: BP 123/76
--- NOTE | 2020-03-31 09:00 | NUR ---
Respiratory note: PATIENT GOING TO GET CHEMO AT THIS TIME, UNABLE TO ASSESS PATIENT
[2020-03-31] MEDS: CHOLESTYRAMINE 4 GM POWDER PO SCH ×2 (11:00→23:19)
[2020-03-31 13:00] VITALS: BP 112/71
[2020-03-31 16:59] VITALS: BP 115/73
[2020-03-31] MEDS: DIPHENOXYLATE W/ATROPINE 2.5 MG TAB PO PRN (18:16)
--- NOTE | 2020-03-31 19:10 | NUR ---
Received report from MELYSSA Pedersen. pt AAOx4, relaxed with no s/s of distress at this time. Bed in lowest and locked position with rails up x3. pt has long-term guards at bedside t/o shift. Pt oriented to use of call light for assistance. Will continue to monitor Q1H and PRN t/o shift.
[2020-03-31 22:00] VITALS: BP 108/68
--- NOTE | 2020-03-31 22:05 | NUR ---
wasted 9 ml of ELECTRICAL LINE WORKER dilauded with Eric Hercules RN.
[2020-04-01 05:00] VITALS: BP 114/74
[2020-04-01] MEDS: MORPHINE SULF 30 mg ER tab PO SCH ×3 (06:08→23:27)
[2020-04-01] MEDS: Ensure HIGH Protein Chocolate 8oz Bottle PO SCH ×3 (08:00→17:57)
[2020-04-01 09:00] VITALS: BP 123/72
--- NOTE | 2020-04-01 09:06 | NUR ---
Respiratory note: PT ASSESSED FOR PRN TX. HR 94, RR 20, POX 93% ON 2L NC, BREATH SOUNDS ARE CLEAR/DIMINISHED. NO SOB OR DISTRESS NOTED. PT WAS NOTIFY TO HAVE [facility] FOR NEEDED [place] TX.
[2020-04-01] MEDS: HYDROmorphone HCL 2 MG/ML VL IV SCH (09:55)
[2020-04-01] MEDS: DIPHENOXYLATE W/ATROPINE 2.5 MG TAB PO PRN ×2 (10:09→23:27)
[2020-04-01] MEDS: CHOLESTYRAMINE 4 GM POWDER PO SCH ×2 (10:09→23:27)
--- NOTE | 2020-04-01 10:30 | NUR ---
Patient taken via gurney for radiation therapy to other facility, escorted by security and transported by [facility]. Patient in stable condition.
--- NOTE | 2020-04-01 11:40 | NUR ---
Nutrition Followup Notes Wt: 87.6 kg Pt was off the floor for radiation tx. Pt is currently on regular diet with ensure HP tid with inadequate PO of 50% x 2 days per RN doc. Est Energy needs: 6058-3939 kcals (17-20 kcal/kgBW), Est Protein needs: 109-145 gms/day (1.5-2.0 gm/kgIBW) d/t pt adiposity. Will continue to monitor and reassess prn. Labs: CA 8.0 L, ALB 2.3 L BM: Pt had 2 BM today per RN doc. Skin: BS 17 mod risk, full details in long term care social worker doc. PES: 1) Obesity r/t energy intake in excess of energy needs aeb 129% IBW and BMI of 30.7 kg/m2 2) Altered nutrition related lab values r/t current medical condition aeb hyponatremia, mod hypoalbuminemia Comments Will continue to closely monitor pertinent labs, PO intake and skin status prn. Will followup in 3-5 days 1) Consider prostat 1 packet bid. 2) consider low lactose diet if diarr persists. 3) Continue to closely monitor pt PO intake to meet at least 75% of meals. 4) Continue current plan of care
--- NOTE | 2020-04-01 11:45 | NUR ---
Patient back to his room S/P Radiation therapy via gurney, transferred in bed. Nursing Home guards at the bedside. In stable condition. Will continue to monitor.
[2020-04-01 13:00] VITALS: BP 113/74
[2020-04-01 17:00] VITALS: BP 119/84
--- NOTE | 2020-04-01 20:13 | NUR ---
AUTO TRANSMISSION SPECIALIST PUMP-DILAUDID SYRINGE CHANGE DILAUDID 50 ML SYRINGE CHANGED AND WITNESSED BY SECOND RN MARCUS RAGSDALE. 18ML DILAUDID WASTED AND WITNESSED BY MARCUS RAGSDALE.
--- NOTE | 2020-04-01 20:18 | NUR ---
PULSE OX CHECK. SPO2 94% ON .5L NC, HR 95. PT DENIES ANY RESPIRATORY DISTRESS. NO SHORTNESS OF BREATH NOTED. WILL CONTINUE TO MONITOR PT.
[2020-04-01 22:00] VITALS: BP 115/71
[2020-04-02 05:00] VITALS: BP 108/73
[2020-04-02] MEDS: MORPHINE SULF 30 mg ER tab PO SCH ×3 (06:17→21:15)
--- NOTE | 2020-04-02 07:30 | NUR ---
Opening Shift Note Assumed care of patient, awake and alert. No S/S of distress/SOB or pain. Bed is low, locked with 2x side rails up. Call light is within reach. Guards are at bedside. Instructed on POC and to call for assist PRN, will continue to monitor for changes Q1hr and PRN.
[2020-04-02 09:00] VITALS: BP 137/78
[2020-04-02] MEDS: Ensure HIGH Protein Chocolate 8oz Bottle PO SCH ×3 (09:04→18:02)
[2020-04-02] MEDS: HYDROmorphone HCL 2 MG/ML VL IV SCH (09:50)
--- NOTE | 2020-04-02 10:07 | NUR ---
Radiation [facility] at bedside to transport patient to outside facility for radiation therapy. LOCOMOTIVE SWITCH OPERATOR pump stopped at this time. No distress noted upon departure.
--- NOTE | 2020-04-02 11:28 | NUR ---
Back in room S/p Radiation therapy. Reconnected to CUSTODIAL OPERATIONS MANAGER pump. No acute distress noted. Patient is resting comfortably in bed. Bed is low, locked with side rails up. Call light and CUSTODIAL OPERATIONS MANAGER control in reach. Guards also at bedside. Will continue to monitor.
[2020-04-02] MEDS: CHOLESTYRAMINE 4 GM POWDER PO SCH ×2 (11:41→21:15)
[2020-04-02] MEDS: DIPHENOXYLATE W/ATROPINE 2.5 MG TAB PO PRN (11:45)
--- NOTE | 2020-04-02 11:45 | NUR ---
Respiratory note: PULSE OX CHECK. SPO2 95% ON .1L NC, HR 95. PT DENIES ANY RESPIRATORY DISTRESS. NO SHORTNESS OF BREATH NOTED. WILL CONTINUE TO MONITOR PT.
[2020-04-02 13:00] VITALS: BP 115/72
--- NOTE | 2020-04-02 14:59 | NUR ---
Patient ambulating Patient ambulating in hallway using walker. Patient being assisted by physical therapist Aravind. Guards present.
[2020-04-02 17:00] VITALS: BP 110/70
--- NOTE | 2020-04-02 21:18 | NUR ---
BUSINESS ASSISTANT DILAUDID 50ML SYRINGE CHANGED NOW AND 13ML WASTED AT THIS TIME. LAUREN RAGSDALE WITNESSED WASTE.
[2020-04-02 22:00] VITALS: BP 124/71
[2020-04-03 05:00] VITALS: BP 118/71
[2020-04-03] MEDS: MORPHINE SULF 30 mg ER tab PO SCH ×3 (06:44→22:00)
[2020-04-03] MEDS: Ensure HIGH Protein Chocolate 8oz Bottle PO SCH ×3 (08:00→18:00)
[2020-04-03 08:55] VITALS: BP 110/69
[2020-04-03] MEDS: HYDROmorphone HCL 2 MG/ML VL IV SCH (10:00)
[2020-04-03] MEDS: CHOLESTYRAMINE 4 GM POWDER PO SCH ×2 (11:24→23:15)
[2020-04-03 13:00] VITALS: BP 112/67
[2020-04-03 16:55] VITALS: BP 112/59
[2020-04-03] MEDS: DIPHENOXYLATE W/ATROPINE 2.5 MG TAB PO PRN (20:36)
--- NOTE | 2020-04-03 21:06 | NUR ---
DILAUDID SEED CORN PRODUCTION MANAGER SYRINGE CHANGED SEED CORN PRODUCTION MANAGER Dilaudid 50 ml syringe has been changed. 15 ml has been wasted which was witnessed by Liza RAGSDALE.
[2020-04-03 22:00] VITALS: BP 109/64
[2020-04-04 05:00] VITALS: BP 108/66
[2020-04-04] MEDS: MORPHINE SULF 30 mg ER tab PO SCH ×3 (05:54→22:20)
--- NOTE | 2020-04-04 07:30 | NUR ---
Opening Shift Note Assumed care of patient, awake and alert. No S/S of distress/SOB. Pain management discussed with patient. Instructed on POC and to call for assist PRN, will continue to monitor for changes Q1hr and PRN.
[2020-04-04 08:00] VITALS: BP 109/72
[2020-04-04] MEDS: Ensure HIGH Protein Chocolate 8oz Bottle PO SCH ×3 (08:00→17:52)
[2020-04-04 09:00] VITALS: BP 109/72
[2020-04-04] MEDS: HYDROmorphone HCL 2 MG/ML VL IV SCH (10:00)
--- NOTE | 2020-04-04 12:03 | NUR ---
Nutrition Followup Notes Wt: 87.1 kg Pt is currently on regular diet with a fair appetite aeb ave 70% PO intake over 5 meals. Will continue to monitor PO status, skin status, pertinent labs and weight trends. Will f/u in 3-5 days. Est Energy needs: 4498-9415 kcals (17-20 kcal/kgBW), Est Protein needs: 109-145 gms/day (1.5-2.0 gm/kgIBW) d/t pt adiposity. Will continue to monitor and reassess prn. Labs: CA 8.0 L, ALB 2.3 L BM: Pt had 4 BM today per RN doc. Skin: BS 16 mod risk, full details in customer care representative doc. PES: 1) Obesity r/t energy intake in excess of energy needs aeb 129% IBW and BMI of 30.7 kg/m2 2) Altered nutrition related lab values r/t current medical condition aeb hyponatremia, mod hypoalbuminemia Comments Will continue to closely monitor pertinent labs, PO intake and skin status prn. Will followup in 3-5 days 1) Consider prostat 1 packet bid. 2) consider low lactose diet if diarr persists. 3) Continue to closely monitor pt PO intake to meet at least 75% of meals. 4) Continue current plan of care
[2020-04-04] MEDS: CHOLESTYRAMINE 4 GM POWDER PO SCH ×2 (12:21→23:56)
[2020-04-04 13:00] VITALS: BP 107/66
[2020-04-04 17:00] VITALS: BP 107/69
[2020-04-04 22:00] VITALS: BP 101/67
--- NOTE | 2020-04-05 00:08 | NUR ---
DILAUDID CLAIMS ADJUSTER SYRINGE CHANGED CLAIMS ADJUSTER Dilaudid 50 ml syringe has been changed. 9.68 ml has been wasted which was witnessed by DEANNA RAGSDALE.
[2020-04-05 05:00] VITALS: BP 118/71
[2020-04-05] MEDS: MORPHINE SULF 30 mg ER tab PO SCH ×3 (06:08→22:03)
--- NOTE | 2020-04-05 06:25 | NUR ---
CALL FROM [facility] LAND MANAGEMENT SUPERVISOR after verification of password, MS. BARRY was updated on the patient status and the plan of care and verbalized understanding. All questions answered.
--- NOTE | 2020-04-05 07:40 | NUR ---
Shift opening note Received patient lying in bed aaox4, pleasant and preparing to go out per [facility] to scheduled radiation therapy. Patient on ARMATURE BALANCER dilaudid but patient stated that his pain is always 10. Shift assessment done and charted. Pal of care medications, treatments and safety discussed with patient and patient verbalized understanding. Waiting for [facility] car to arrive at this time.
[2020-04-05 08:00] VITALS: BP 124/67
--- NOTE | 2020-04-05 08:20 | NUR ---
Amanda Swartz phoned to notify us that patient's treatment was cancelled. Phoned them to clarify and they confirmed that it was cancelled for toady but will have treatment resumed tomorrow. Patient and guards made aware of same. Will continue to monitor patient.
[2020-04-05] MEDS: HYDROmorphone HCL 2 MG/ML VL IV SCH (08:30)
--- NOTE | 2020-04-05 08:34 | NUR ---
Respiratory note: PT IS AWAKE, AND ALERT. NO RESPIRATORY DISTRESS NOTED. SPO2 94% ON 1L NC, HR 93, RR 18, BS CLEAR/DIMINISHED. NO FURTHER RESPIRATORY INTERVENTION INDICATED. GUARDS AT BEDSIDE. WILL CONTINUE TO MONITOR PT.
[2020-04-05] MEDS: CHOLESTYRAMINE 4 GM POWDER PO SCH ×2 (12:12→22:49)
[2020-04-05] MEDS: Ensure HIGH Protein Chocolate 8oz Bottle PO SCH ×3 (12:13→18:01)
[2020-04-05 17:00] VITALS: BP 128/85
[2020-04-05] MEDS: fentaNYL 50MCG/HR 50 MCG/HR PAT TD SCH (17:26)
[2020-04-05 22:00] VITALS: BP 129/74
[2020-04-06 05:00] VITALS: BP 121/72
[2020-04-06] MEDS: MORPHINE SULF 30 mg ER tab PO SCH ×3 (06:26→22:00)
--- NOTE | 2020-04-06 06:29 | NUR ---
DILAUDID BRUSH STAINER SYRINGE CHANGED BRUSH STAINER Dilaudid 50 ml syringe has been changed. 8.95 ml has been wasted which was witnessed by Lala RAGSDALE.
--- NOTE | 2020-04-06 07:35 | NUR ---
Opening Shift Note Assumed care of patient, awake and alert. No S/S of distress or SOB noted at this time, currently on 2L via NC, Currently infusing Dilaudid via BUSINESS SUPERVISOR pump to right upper asim cath, site patent and benign, no redness, swelling or pain reported to site, right upper arm midline patent and benign. Skin assessed to wrist and ankles for skin breakdown r/t cuffs, none noted. Skin irritation and minimal bleeding was noted to iiner gluetal fold, z-guard barrier ointment to be applied after each loose stool, pt currently turned on his left side, Instructed on POC and to call for assist PRN, call light within reach, will continue to monitor for changes Q1hr and PRN.
[2020-04-06] MEDS: Ensure HIGH Protein Chocolate 8oz Bottle PO SCH ×3 (08:00→18:00)
[2020-04-06 09:00] VITALS: BP 138/80
[2020-04-06] MEDS: HYDROmorphone HCL 2 MG/ML VL IV SCH (09:14)
--- NOTE | 2020-04-06 09:32 | NUR ---
PT OFF UNIT/PICKED UP BY JADEN SHANE AND VANESSA ( METAL CASKET ASSEMBLER) PT [id number], VS STABLE AND CHARTED, PT MEDICATE WITH DILAUDID 2MG IV ORDERED, NO DISTRESS NOTED AT THIS TIME
--- NOTE | 2020-04-06 10:48 | NUR ---
PT BACK FROM [facility] RADIATION PT STABLE, NO DISTRESS NOTED, SYNCHRONIZER DILAUDID PUMP RESUMED, C/O PAIN 06/12, CONT CARE
[2020-04-06] MEDS: CHOLESTYRAMINE 4 GM POWDER PO SCH ×2 (11:28→22:58)
--- NOTE | 2020-04-06 12:56 | NUR ---
PT REFUSING CHEMOTHERAPY STATES " TODAY THE RADIATION WENT LONGER THAN USUAL, IT TOOK ALOT OUT OF ME", PT INFORMED HE IS SCHEDULED AT 1330 TO START CHEMO, STATES " ASK THE DOCTOR BECAUSE I DONT WANT CHEMO TODAY AND IF TOMORROW IS OKAY", CALL DR TONY MD STATES TO CALL PHARMACY SO THEY DONT MAKE IT FOR TODAY, CALLED PHARMACY AND THEY HAD NOT MIXED MEDICATION, CONT CARE
[2020-04-06 13:00] VITALS: BP 116/73
[2020-04-06] MEDS ORDERED: FLUOROURACIL 2,000 MG in SODIUM CHLORIDE 0.9% 1,000 ML IV SCH (13:30)
--- NOTE | 2020-04-06 13:30 | NUR ---
MEDICATION HELD PT REFUSED FLUORACIL DOSE, CONT CARE
[2020-04-06 17:00] VITALS: BP 110/72
--- NOTE | 2020-04-06 18:15 | NUR ---
MD DR MCCRAY AT BEDSIDE, MD INFORMED PT IS STARTING TO GET SKIN BREAKDOWN IN THE RECTUM R/T LOOSE MD ALISSA STATES , HE IS AWARE AND MOST LIKELY RELATED TO RADIATION WELL, PICTURES TAKEN, CONT CARE
[2020-04-06 22:01] VITALS: BP 103/69
[2020-04-06] MEDS: LORazepam 0.5 MG TAB PO PRN (22:59)
[2020-04-07 05:05] VITALS: BP 114/72
[2020-04-07] MEDS: MORPHINE SULF 30 mg ER tab PO SCH ×3 (06:32→21:40)
[2020-04-07 08:00] VITALS: BP 114/70
[2020-04-07] MEDS: Ensure HIGH Protein Chocolate 8oz Bottle PO SCH ×3 (08:40→17:56)
[2020-04-07] MEDS: HYDROmorphone HCL 2 MG/ML VL IV SCH (09:03)
[2020-04-07] MEDS: CHOLESTYRAMINE 4 GM POWDER PO SCH ×2 (11:00→23:07)
[2020-04-07 12:00] VITALS: BP 100/60
--- NOTE | 2020-04-07 13:48 | NUR ---
RETAIL AND PROMOTIONS COORDINATOR PUMP CHANGED OUT BY JOE FROM EDUCATION DUE TO THE PUMP NOT RECORDING DOSES DEMANDED AND DOSES GIVEN. 14.47 ML ON SYRINGE AT PUMP CHANGE AND PUMP ZERO. PUMP CHANGED AT 1330.
--- NOTE | 2020-04-07 14:44 | NUR ---
Nutrition Followup Notes Wt: 84.2 kg Pt is currently on regular diet with a good appetite aeb ave 83% PO intake over 3 meals. Will continue to monitor PO status, skin status, pertinent labs and weight trends. Will f/u in 5-7 days. Est Energy needs: 3482-4695 kcals (17-20 kcal/kgBW), Est Protein needs: 109-145 gms/day (1.5-2.0 gm/kgIBW) d/t pt adiposity. Will continue to monitor and reassess prn. Labs: CA 8.0 L, ALB 2.3 L BM: Pt had 3 BM today per RN doc. Skin: BS 22 low risk, full details in residential care facility manager doc. PES: 1) Obesity r/t energy intake in excess of energy needs aeb 129% IBW and BMI of 30.7 kg/m2 2) Altered nutrition related lab values r/t current medical condition aeb hyponatremia, mod hypoalbuminemia Comments Will continue to closely monitor pertinent labs, PO intake and skin status prn. Will followup in 3-5 days 1) Consider prostat 1 packet bid. 2) consider low lactose diet if diarr persists. 3) Continue to closely monitor pt PO intake to meet at least 75% of meals. 4) Continue current plan of care
[2020-04-07] MEDS ORDERED: FLUOROURACIL 2,000 MG in SODIUM CHLORIDE 0.9% 1,000 ML IV SCH (16:00)
[2020-04-07 17:00] VITALS: BP 111/69
--- NOTE | 2020-04-07 17:42 | NUR ---
WOUND CARE NOTE: Wound care in to see patient per wound care request regarding "intragluteal fold wound" that are noted by bedside nurse upon assessment. Bedside nurse took photograph of patient's wound upon discovery for reference. Patient is 59 years old male admitted for Rectal Cancer. Patient is resting in bed in Rm. 212B. Patient is awake, alert and oriented. Patient is self turning and repositioning and his Timothy score is 22. Wound assessment done with the assistance of patient's nurse, MELYSSA Denny. Patient's intragluteal fold , perirectal area noted with 8x2cm open full thickness wound with no measurable depth. Wound is bright red and moist. Naima care given, patted dry with gauze and applied Thera honey gauze to open wound are. Per bedside nurse reports, patient developed wound as patient is having radiation and having multiple episode of loose stools. 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 Patient's wound care education provided,verbalized understanding. Patient tolerated well, guards at bedside. Dietary is on board. RECOMMENDATION: Nursing to continue with Daily/PRN dressing change to intragluteal, perirectal wound per MD order, redistribute pressure points with pillows, frequent naima care/check, keep clean and dry, continue monitoring by wound care while patient is hospitalized. Addendum: 04/07/20 at 1827 by Katharina Ferrera RN Amended: Links added.
--- NOTE | 2020-04-07 19:30 | NUR ---
Opening Shift Note Assumed care of patient, awake and alert. No S/S of distress/SOB. Guards at bedside. Instructed on POC and to call for assist PRN, will continue to monitor for changes Q1hr and PRN.
[2020-04-07 22:00] VITALS: BP 119/71
[2020-04-07] MEDS: ZOLPIDEM TARTRATE 5 MG TAB PO PRN (23:08)
--- NOTE | 2020-04-08 00:51 | NUR ---
DILAUDID PRODUCT MGMT DEV MANAGER SYRINGE CHANGED PRODUCT MGMT DEV MANAGER Dilaudid 50 ml syringe has been changed. 6.5 ml has been wasted which was witnessed by Jayme RAGSDALE.
[2020-04-08 05:00] VITALS: BP 114/74
[2020-04-08] MEDS: MORPHINE SULF 30 mg ER tab PO SCH ×3 (05:49→22:46)
--- NOTE | 2020-04-08 07:00 | NUR ---
PIC LINE DRESSING CHANGED BY DEANNA OF WOOD PATTERN MAKER
[2020-04-08] MEDS: Ensure HIGH Protein Chocolate 8oz Bottle PO SCH ×3 (07:28→17:35)
[2020-04-08 08:00] VITALS: BP 136/81
[2020-04-08] MEDS: HYDROmorphone HCL 2 MG/ML VL IV SCH (10:00)
[2020-04-08] MEDS: CHOLESTYRAMINE 4 GM POWDER PO SCH ×2 (11:00→22:46)
--- NOTE | 2020-04-08 11:23 | NUR ---
I called Dr. Burns [phone] to request assistance with authorization for [facility] car to assist in transporting patient to last radiation treatment. There was no answer, voice mailbox full-unable to leave message. Called alternate number provided [phone] and left message asking for assistance with transportation arrangements to patient's radiation treatment.
[2020-04-08 12:00] VITALS: BP 117/80
--- NOTE | 2020-04-08 12:40 | NUR ---
1240 04/09/20 - Patient's appointment for radiation treatment had to be cancelled today due to non availability of [facility] car (short staffing) per LT Jazmine. Per LT Jazmine this will also require medical clearance and the certified medical aide will have to call me back. I provided my call back information.
[2020-04-08] MEDS: fentaNYL 50MCG/HR 50 MCG/HR PAT TD SCH (13:55)
--- NOTE | 2020-04-08 15:18 | NUR ---
5720 04/08 20 - Contacted Lt Lucero at [phone], requesting update on status of raghav car for patient's pending appointment for radiation treatment at [facility]. Per Lt Lucero raghav car has been schedule and will be here between 12noon and 1230.
[2020-04-08] MEDS ORDERED: FLUOROURACIL 2,000 MG in SODIUM CHLORIDE 0.9% 1,000 ML IV SCH (16:00)
[2020-04-08 16:57] VITALS: BP 107/66
--- NOTE | 2020-04-08 19:25 | NUR ---
Received report from the Day Shift RN Eduin. Initial assessment done.
--- NOTE | 2020-04-08 19:30 | NUR ---
Pt. on IV Dilaudid FARMER CASH GRAIN for pain management due to Colorectal cancer that metastasize to the liver as ordered by the Doctor Per Pharm. Protocol.
--- NOTE | 2020-04-08 20:00 | NUR ---
Pt. resting in bed, sleeping, calm and easily arousable by voice. Pt. an inmate, alert, awake, oriented x 4, on bedrest only. Generally weak with assist @ the bedside with ADL's.
[2020-04-08 22:16] VITALS: BP 101/69
--- NOTE | 2020-04-08 22:46 | NUR ---
Pt. due meds. given @ this time. Pt. made aware of the use/benefits of meds. given.
[2020-04-09] MEDS: ZOLPIDEM TARTRATE 5 MG TAB PO PRN (00:43)
--- NOTE | 2020-04-09 00:43 | NUR ---
Pt. given Ambien 10 mg. po. as requested by the pt. to help him sleep tonight.
--- NOTE | 2020-04-09 00:45 | NUR ---
Pt. given new pair of socks after placing lotion to both feet to prevent skin dryness.
--- NOTE | 2020-04-09 02:30 | NUR ---
Pt. sleeping well undisturbed @ this time with TELEPHONE OPERATORS SUPERVISOR IV Dilaudid continuously attached to him. Officers @ the bedside guarding the pt.
--- NOTE | 2020-04-09 02:30 | NUR ---
Pt. sleeping with IV ULTRASOUND TECHNOLOGIST Dilaudid continuously
--- NOTE | 2020-04-09 04:00 | NUR ---
Pt. sleeping well undisturbed. IV ENGINEER STEAM Dilaudid continuously attached and used by the pt.
[2020-04-09 05:19] VITALS: BP 115/72
[2020-04-09] MEDS: MORPHINE SULF 30 mg ER tab PO SCH ×3 (06:51→23:35)
--- NOTE | 2020-04-09 07:30 | NUR ---
Dilaudid CLERICAL PRODUCTION WORKER was followed-up a new 50 mg./50 ml Syringe to the CLERICAL PRODUCTION WORKER Pump and set the CLERICAL PRODUCTION WORKER according to the present Doctors' order and Pharmacy Protocol. MELYSSA Kimble. witnessed with Jalyn Peacock RN. Document wasted @ the [facility].
[2020-04-09 08:00] VITALS: BP 125/75
[2020-04-09] MEDS: Ensure HIGH Protein Chocolate 8oz Bottle PO SCH ×3 (08:00→18:14)
[2020-04-09 09:00] VITALS: BP 125/75
[2020-04-09] MEDS: CHOLESTYRAMINE 4 GM POWDER PO SCH ×2 (11:04→23:36)
[2020-04-09 13:00] VITALS: BP 117/70
[2020-04-09] MEDS: HYDROmorphone HCL 2 MG/ML VL IV SCH (13:44)
--- NOTE | 2020-04-09 18:35 | NUR ---
Respiratory note: POX CHECK: PT IS AWAKE AND ALERT. HR 81, RR 20, SPO2 94% ON 1LPM NC. NO SIGNS OR SYMPTOMS OF RESPIRATORY DISTRESS NOTED AT THIS TIME. GUARDS AT BEDSIDE.
--- NOTE | 2020-04-09 19:25 | NUR ---
Received report from the Day RN. Kimble. Initial assessment done. Pt. resting and sleeping with AIRCRAFT STRUCTURAL DESIGN ENGINEER Dilaudid IV attached to the EDU Midline. Pt. calm and quiet with Officers @ the bedside.
--- NOTE | 2020-04-09 19:38 | NUR ---
DILAUDID PUMP SETTING CHANGED PER DR. JIMENEZ'S ORDERS.
--- NOTE | 2020-04-09 20:00 | NUR ---
Complete assessment done. Officers @ the bedside, attended pt.'s needs.
[2020-04-09 22:00] VITALS: BP 117/90
--- NOTE | 2020-04-09 23:35 | NUR ---
Meds. as scheduled given @ this time. Pt. able to swallow meds. without difficulty. Provided assistance with ADLS's and needs @ the bedside. Attended pt.'s needs.
--- NOTE | 2020-04-10 00:30 | NUR ---
Pt. Dilaudid IV REINFORCING ROD LAYER continuous attached to the Right Upper Chest Portacath, keep the access patent and intact.
[2020-04-10] MEDS: ZOLPIDEM TARTRATE 5 MG TAB PO PRN (02:14)
--- NOTE | 2020-04-10 02:14 | NUR ---
Pt. given Ambien 10 mg. po. @ this time to help relieve insomnia. Pt. returned to sleep.
--- NOTE | 2020-04-10 03:30 | NUR ---
Pt. provided partial bedbath in bed after pt.'s made moderate soft, pasty brown stool. Pt. gown, chux and bed linens changed. Keeping clean, dry, safe and window shade cutter and mounter bed. Attended pt.'s needs. Keeping bed locked in low position and side rails up x 2-3 for safety. Call-light within pt.'s reach. Officers @ the bedside.
[2020-04-10 05:00] VITALS: BP 105/66
[2020-04-10] MEDS: MORPHINE SULF 30 mg ER tab PO SCH ×3 (06:10→22:08)
[2020-04-10 07:18] LABS: Basophils # (auto) 0.1 10 ^3/uL (0-0.2); Basophils % (auto) 0.9 % (0.0-2.0); Eosinophils # (auto) 0.2 10 ^3/uL (0-0.8); Eosinophils % (auto) 2.3 % (0.0-7.0); Hematocrit 31.8 % (41.0-53.0); Hemoglobin 10.3 g/dL (13.5-17.5); Lymphocytes # (auto) 0.5 10 ^3/uL (0.4-5.4); Lymphocytes % (auto) 7.1 % (10.0-50.0); Mean Corpuscular Hgb Conc. 32.4 g/dL (32.0-36.0); Mean Corpuscular Volume 83.3 fL (80.0-100.0); Monocytes # (auto) 1.2 10 ^3/uL (0-1.3); Monocytes % (auto) 15.1 % (0.0-12.0); Neutrophils # (auto) 5.8 10 ^3/uL (1.6-8.6); Neutrophils % (auto) 74.6 % (37.0-80.0); Platelet Count (auto) 293 10^3/uL (140-450); Red Blood Cells 3.82 10^6/uL (4.5-5.90); Red Cell Distribution Width 18.8 % (11.8-14.3); White Blood Cell 7.8 10^3/uL (4.4-10.8)
--- NOTE | 2020-04-10 07:30 | NUR ---
Opening Shift Note Assumed care of patient, awake and alert. No S/S of distress/SOB. Pain reported. COMPOSITION WEATHERBOARD APPLIER pump changed to reflect Dr. Bergman's orders. Instructed on POC and to call for assist PRN, will continue to monitor for changes Q1hr and PRN.
--- NOTE | 2020-04-10 07:30 | NUR ---
Dilaudid JET WORKER was followed up a new 50mg./50 ml. New JET WORKER Dilaudid Syringe into the JET WORKER Pump and set it according to the present Doctor's order and Pharmacy Protocol. MELYSSA Kimble. witnessed with Jalyn Peacock RN. Dilaudid wasted and documented @ the [facility]. Bethany Charge Nurse is aware of the JET WORKER followed- up between 2 RN's.
[2020-04-10 07:37] LABS: Albumin 2.2 g/dL (3.4-5.0); Calcium 8.1 mg/dL (8.5-10.1); Potassium 4.3 mmol/L (3.5-5.1)
[2020-04-10 07:42] LABS: Bilirubin, Total 0.7 mg/dL (0.2-1.0); Total Protein 7.1 g/dL (6.4-8.2)
[2020-04-10 08:00] VITALS: BP 111/73
[2020-04-10 09:00] VITALS: BP 111/73
[2020-04-10] MEDS: HYDROmorphone HCL 2 MG/ML VL IV SCH (10:00)
[2020-04-10] MEDS: Ensure HIGH Protein Chocolate 8oz Bottle PO SCH ×3 (10:17→18:08)
[2020-04-10] MEDS: PARoxetine 20 MG TAB PO SCH (10:22)
[2020-04-10] MEDS: CHOLESTYRAMINE 4 GM POWDER PO SCH ×2 (12:47→22:09)
[2020-04-10 22:00] VITALS: BP 120/71
--- NOTE | 2020-04-10 22:27 | NUR ---
RT NOTE PT ON CONT BEDSIDE POX. PT SHOWING NO SIGNS OF DISTRESS. PT DENIES ANY SOB. PT ON 1 LPM NC WITH AN SPO2 OF 98%. PT KNOWS TO HAVE RT PAGED IF NEED. GUARDS AT BEDSIDE.
[2020-04-11] MEDS: ZOLPIDEM TARTRATE 5 MG TAB PO PRN (01:43)
--- NOTE | 2020-04-11 02:29 | NUR ---
Dilaudid PARTS SALESMAN syringe replaced as ordered.
--- NOTE | 2020-04-11 02:30 | NUR ---
Dilaudid 13 ml left from syringe wasted with Jalyn Retana RN.
[2020-04-11 05:00] VITALS: BP 102/68
[2020-04-11] MEDS: MORPHINE SULF 30 mg ER tab PO SCH ×3 (06:33→22:32)
--- NOTE | 2020-04-11 07:30 | NUR ---
Opening Shift Note Assumed care of patient, awake and alert. No S/S of distress/SOB or pain. Instructed on POC and to call for assist PRN, will continue to monitor for changes Q1hr and PRN. Bed is locked and in lowest position. Call light within reach.
[2020-04-11 08:00] VITALS: BP 100/63
[2020-04-11] MEDS: Ensure HIGH Protein Chocolate 8oz Bottle PO SCH ×3 (08:00→18:39)
[2020-04-11 09:00] VITALS: BP 100/63
[2020-04-11] MEDS: CHOLESTYRAMINE 4 GM POWDER PO SCH ×2 (11:15→22:33)
[2020-04-11] MEDS: PARoxetine 20 MG TAB PO SCH (11:16)
[2020-04-11] MEDS: HYDROmorphone HCL 2 MG/ML VL IV SCH (11:17)
[2020-04-11 13:00] VITALS: BP 107/71
[2020-04-11] MEDS: fentaNYL 50MCG/HR 50 MCG/HR PAT TD SCH (15:48)
--- NOTE | 2020-04-11 16:27 | NUR ---
pox at bedside
[2020-04-11 17:00] VITALS: BP 110/72
--- NOTE | 2020-04-11 20:11 | NUR ---
ROLL COATING MACHINE OPERATOR Dilaudid syringe replaced as ordered. Total Dilaudid 13 ml wasted with Makenzie Retana RN
[2020-04-11 22:00] VITALS: BP 115/79
[2020-04-12 05:00] VITALS: BP 128/90
[2020-04-12] MEDS: MORPHINE SULF 30 mg ER tab PO SCH ×3 (06:32→21:27)
--- NOTE | 2020-04-12 06:45 | NUR ---
Respiratory note: BEDSIDE CONTINUOUS POX CHECK. PT SHOWING NO SIGNS OF DISTRESS OR SOB. PT IS ON 1L NC WITH AN SPO2 OF 92%. PT KNOWS TO HAVE RT PAGED IF NEED. GUARDS AT BEDSIDE.
--- NOTE | 2020-04-12 08:09 | NUR ---
OPENING SHIFT NOTE: PATIENT RESTING IN BED, PATIENT A/OX4. UPDATED ON PLAN OF CARE. PATIENT HAS CALL LIGHT WITHIN REACH, FALL PRECAUTIONS IN PLACE. WILL CONTINUE TO MONITOR.
[2020-04-12 08:48] VITALS: BP 117/69
[2020-04-12] MEDS: PARoxetine 20 MG TAB PO SCH (10:04)
[2020-04-12] MEDS: Ensure HIGH Protein Chocolate 8oz Bottle PO SCH ×3 (10:04→18:39)
--- NOTE | 2020-04-12 10:52 | NUR ---
PATIENT UP AMBULATING IN UNIT WITH PHYSICAL THERAPY.
[2020-04-12] MEDS: CHOLESTYRAMINE 4 GM POWDER PO SCH ×2 (11:45→21:28)
[2020-04-12] MEDS: HYDROmorphone HCL 2 MG/ML VL IV SCH (11:45)
[2020-04-12 12:30] VITALS: BP 109/70
--- NOTE | 2020-04-12 12:42 | NUR ---
Nutrition Followup Notes Wt: 88.4 kg Pt is currently on regular diet with a fair appetite aeb ave 50% PO intake over 3 meals per RN doc. Noted pt is done with radiation therapy. Will continue to monitor PO status, skin status, pertinent labs and weight trends. Will f/u in 5-7 days. Est Energy needs: 9309-1624 kcals (17-20 kcal/kgBW), Est Protein needs: 109-145 gms/day (1.5-2.0 gm/kgIBW) d/t pt adiposity. Will continue to monitor and reassess prn. Labs: CA 8.1 L, ALB 2.2 L BM: Pt last BM noted on 04/08 per RN doc. Skin: BS 20 low risk, full details in health careers instructor doc. PES: 1) Obesity r/t energy intake in excess of energy needs aeb 129% IBW and BMI of 30.7 kg/m2 2) Altered nutrition related lab values r/t current medical condition aeb hyponatremia, mod hypoalbuminemia Comments Will continue to closely monitor pertinent labs, PO intake and skin status prn. Will followup in 3-5 days 1) Consider prostat 1 packet bid. 2) consider low lactose diet if diarr persists. 3) Continue to closely monitor pt PO intake to meet at least 75% of meals. 4) Continue current plan of care
[2020-04-12 13:46] LABS: Hepatitis A Ab IgM Negative; Hepatitis B Core IgM Negative; Hepatitis B Surface Antigen Negative (Negative); Hepatitis C Antibody Negative (Negative)
--- NOTE | 2020-04-12 14:09 | NUR ---
DNR STATUS: PATIENT REQUESTS TO BE A DNR. MD MCCRAY SIGNED CODE STATUS FORM AND PLACED IN THE HARD CHART, AND THIS RN APPLIED DNR ID BAND.
[2020-04-12 16:49] VITALS: BP 128/76
--- NOTE | 2020-04-12 18:54 | NUR ---
CARE ENDORSED TO NOC RN.
[2020-04-12] MEDS: ZOLPIDEM TARTRATE 5 MG TAB PO PRN (22:45)
[2020-04-12 23:06] VITALS: BP 121/75
[2020-04-13 05:24] VITALS: BP 125/69
[2020-04-13] MEDS: MORPHINE SULF 30 mg ER tab PO SCH ×2 (05:57→13:45)
--- NOTE | 2020-04-13 06:00 | NUR ---
Midline dislodged: Patient called saying his IV is leaking, checked midline to EDU noted catheter out under dressing. No bleeding noted, no swelling noted.
--- NOTE | 2020-04-13 06:59 | NUR ---
Dressing changed to port a cath on right upper chest.
[2020-04-13 09:00] VITALS: BP 125/77
[2020-04-13] MEDS: HYDROmorphone HCL 2 MG/ML VL IV SCH (09:28)
[2020-04-13] MEDS: PARoxetine 20 MG TAB PO SCH (09:28)
--- NOTE | 2020-04-13 09:30 | NUR ---
MORNING MEDS PATIENT REFUSING MORNING PAXIL. PATIENT EDUCATED ON MEDICATION ADMINISTRATION, PATIENT STATED "I DON'T THINK I NEED THAT." WILL CONTINUE TO MONITOR
--- NOTE | 2020-04-13 10:31 | NUR ---
WOUND CARE NOTE: Wound care in to see patient for reevaluation of intragluteal fold wound. Patient continue resting in bed in Rm. 212B. Patient is awake, alert and oriented. Patient is self turning and repositioning and his Timothy score is 20. 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 Wound measuring 8x1.5cm. Wound is bright red and moist with bright and dark red dominic wound. Cleansed wound, patted dry with gauze and applied Thera honey gauze as MD ordered. Patient tolerated well, guards at bedside. New photograph of wound are taken for reference. RECOMMENDATION: Nursing to continue with Daily/PRN dressing change to intragluteal, perirectal wound per MD order, redistribute pressure points with pillows, frequent dominic care/check, keep clean and dry, continue monitoring by wound care while patient is hospitalized. Addendum: 04/13/20 at 1253 by Katharina Ferrera RN Amended: Links added.
[2020-04-13] MEDS: CHOLESTYRAMINE 4 GM POWDER PO SCH ×2 (11:00→22:51)
[2020-04-13 12:36] VITALS: BP 112/70
[2020-04-13 17:00] VITALS: BP 127/75
--- NOTE | 2020-04-13 18:32 | NUR ---
PHARMACY RECEIVED PATIENT'S SCHEDULED POLE FRAME CONSTRUCTION WORKER PUMP REFILL FOR 2104 FROM WILLIAM REYES TECH. WILL ENDORSE CARE TO TINT LAYER.
--- NOTE | 2020-04-13 19:10 | NUR ---
VMWARE CONSULTANT PUMP REFILL VMWARE CONSULTANT PUMP REFILL HANDED OFF TO SAP BI ARCHITECT RNMADHU
--- NOTE | 2020-04-13 19:35 | NUR ---
Opening note Assumed care of patient, patient is alert and orientated x4. No sob noted. POC reviewed, patients questions answered. Bed locked in lowest position, Side rails up x2. Guards at bedside. Call light within reach, will continue to monitor.
--- NOTE | 2020-04-13 20:15 | NUR ---
Bowel movement Patient has loose small amount of bowel movement. Cleaned patient, new chucks changed and z guard applied. Call light and guards at bedside. will continue to monitor.
--- NOTE | 2020-04-13 21:05 | NUR ---
PROJECT PRODUCT MANAGER PUMP-DILAUDID SYRINGE CHANGE DILAUDID 50 ML SYRINGE CHANGED AND WITNESSED BY SECOND RN FRAN RN. 2 ML WASTED WITH FRAN RN. WILL CONTINUE TO MONITOR.
[2020-04-13 21:29] VITALS: BP 122/79
[2020-04-13] MEDS: LORazepam 0.5 MG TAB PO PRN (22:51)
--- NOTE | 2020-04-13 22:51 | NUR ---
Patient requesting anxiety medication Patient is feeling anxious and requesting a sleeping pill. will medicate per md orders. See emar. Will continue to monitor patient.
[2020-04-13] MEDS: ZOLPIDEM TARTRATE 5 MG TAB PO PRN (22:52)
--- NOTE | 2020-04-14 01:45 | NUR ---
Patient rounding Patient is asleep, chest is evenly rising no sob or distress noted. Guards at bedside. Will continue to monitor.
[2020-04-14] MEDS: DIPHENOXYLATE W/ATROPINE 2.5 MG TAB PO PRN (04:48)
[2020-04-14 05:00] VITALS: BP 118/68
[2020-04-14] MEDS: LORazepam 0.5 MG TAB PO PRN (06:36)
--- NOTE | 2020-04-14 07:31 | NUR ---
closing note Endorsed care to day shift RN
[2020-04-14 09:00] VITALS: BP 111/77
[2020-04-14] MEDS: HYDROmorphone HCL 2 MG/ML VL IV SCH (09:59)
[2020-04-14] MEDS: PARoxetine 20 MG TAB PO SCH (10:02)
[2020-04-14] MEDS: CHOLESTYRAMINE 4 GM POWDER PO SCH ×2 (12:30→22:53)
[2020-04-14 13:00] VITALS: BP 102/50
[2020-04-14] MEDS: fentaNYL 50MCG/HR 50 MCG/HR PAT TD SCH (15:54)
[2020-04-14 17:00] VITALS: BP 113/80
--- NOTE | 2020-04-14 19:45 | NUR ---
RT NOTE PT WAS SEEN BY RT FOR CONT POX CHECK. PT STATES HES BEEN OFF POX SINCE LAST NIGHT. PT IS ON ROOM AIR BUT REQUESTING O2 WHEN PLACING POX. PT ON 1L O2 WITH SATS 96%. GUARDS AT BEDSIDE. NO SOB OR DISTRESS NOTED. CONT ORDERED Addendum: 04/14/20 at 1947 by Padmini Tena RT Amended: Links added.
--- NOTE | 2020-04-14 20:00 | NUR ---
called pharmacy Called pharmacy regarding dilaudiid syringe. medication is scheduled at 0624 but dilaudid syringe given to me at this time by pharmacy. Pharmacy said syringe gets switched out every 24 hrs and to document the settings when the time comes up on emar following doctors orders. Will follow through.
--- NOTE | 2020-04-14 20:19 | NUR ---
Dr Lorena Johnson at bedside Dr Lorena johnson at bedside to see patient. No new orders, will continue care.
--- NOTE | 2020-04-14 20:22 | NUR ---
Paged doctor Madalyn Paged doctor Madalyn regarding patients pain. Awaiting call back will continue care.
--- NOTE | 2020-04-14 20:37 | NUR ---
COST ENGINEER PUMP-DILAUDID SYRINGE CHANGE DILAUDID 50 ML SYRINGE CHANGED AND WITNESSED BY SECOND charger tester Tasneem RAGSDALE. 32 ML WASTED WITH CHANTAL RAGSDALE. WILL CONTINUE CARE.
--- NOTE | 2020-04-14 21:55 | NUR ---
Dr Bergman paged back Received call back from DR Bergman. New orders received, will follow through and continue care
[2020-04-14 22:00] VITALS: BP 109/77
[2020-04-14] MEDS: MORPHINE SULF 30 mg ER tab PO PRN (22:53)
[2020-04-15] MEDS: ZOLPIDEM TARTRATE 5 MG TAB PO PRN ×2 (01:40→22:36)
--- NOTE | 2020-04-15 01:44 | NUR ---
Opening note Assumed care of patient, patient is alert and orientated x4. No sob or distress noted. Patient is on 1L nasal canula saturation at 96%. bed locked in lowest position, side rails up x2. Call light within reach, guards at bedside, will continue to monitor Addendum: 04/15/20 at 0148 by MADHU JACKMAN RN RN Note time was meant to be at 1940. on 04/14/20.
[2020-04-15 05:00] VITALS: BP 107/66
[2020-04-15] MEDS: MORPHINE SULF 30 mg ER tab PO PRN ×2 (06:37→22:36)
--- NOTE | 2020-04-15 06:48 | NUR ---
Social service called Social service wanted an update on the patients condition. Gave an update. All questions answered.
--- NOTE | 2020-04-15 06:59 | NUR ---
Closing note Endorsed care to day shift RN. Patient is resting in bed. No distress noted.
[2020-04-15] MEDS: HYDROmorphone HCL 2 MG/ML VL IV SCH (08:54)
[2020-04-15 09:00] VITALS: BP 99/62
[2020-04-15] MEDS: PARoxetine 20 MG TAB PO SCH (09:02)
--- NOTE | 2020-04-15 10:15 | NUR ---
PT DECLINED P.T. BECAUSE OF NOT FEELING WELL.
[2020-04-15] MEDS: CHOLESTYRAMINE 4 GM POWDER PO SCH ×2 (11:24→22:36)
[2020-04-15 13:00] VITALS: BP 104/68
[2020-04-15 17:00] VITALS: BP 114/61
--- NOTE | 2020-04-15 18:47 | NUR ---
OXYGEN ASSESSMENT, PT ON BEDSIDE PULSE OX, CONNECTED TO 1L NC AT 24% FIO2. PT PRESENTING NO RESPIRATORY DISTRESS AT THIS TIME. GUARDS AT BEDSIDE, WILL CONTINUE TO MONITOR.
--- NOTE | 2020-04-15 19:30 | NUR ---
Opening Shift Note Assumed care of patient, awake and alert. Patient on Dilaudid GAMMA RAY OPERATOR pump, no signs nor symptoms of respiratory distress. Instructed on POC and to call for assist PRN, will continue to monitor for changes Q1hr and PRN.
[2020-04-15 22:00] VITALS: BP 112/67
--- NOTE | 2020-04-15 23:00 | NUR ---
Dilaudid STATE GAME WARDEN pump syringe replaced with new 50 ml syringe witnessed by another RN, Jimi Yan. 34ml of Dilaudid wasted with another RN Jimi Yan. Care continued.
[2020-04-16 05:00] VITALS: BP 108/66
[2020-04-16] MEDS: MORPHINE SULF 30 mg ER tab PO PRN ×3 (07:55→22:36)
[2020-04-16 09:00] VITALS: BP 103/66
[2020-04-16] MEDS: PARoxetine 20 MG TAB PO SCH (11:19)
[2020-04-16] MEDS: CHOLESTYRAMINE 4 GM POWDER PO SCH ×2 (11:19→22:36)
[2020-04-16 13:00] VITALS: BP 100/61
--- NOTE | 2020-04-16 14:48 | NUR ---
Hold PT today. Pt has family visiting at bedside.
--- NOTE | 2020-04-16 15:40 | NUR ---
Respiratory note: PT REMAINS ON CONTINUOUS POX MONITOR AT BEDSIDE. HR 88, RR 18, SPO2 93% ON 1LPM NASAL CANNULA. PT RESTING IN BED, NO S/S OF DISTRESS.
[2020-04-16 17:00] VITALS: BP 108/65
--- NOTE | 2020-04-16 19:30 | NUR ---
Opening Shift Note Assumed care of patient, awake and alert. Patient on Dilaudid COAGULATING OPERATOR pump, no signs nor symptoms of respiratory distress. Instructed on POC and to call for assist PRN, will continue to monitor for changes Q1hr and PRN.
[2020-04-16 22:00] VITALS: BP 113/56
[2020-04-16] MEDS: ZOLPIDEM TARTRATE 5 MG TAB PO PRN (22:36)
--- NOTE | 2020-04-16 23:36 | NUR ---
Dilaudid FARMER GENERAL pump syringe replaced with new 50 ml syringe witnessed by another RN, Rafaela Larios. 33ml of Dilaudid wasted with another RN Rafaela Larios. Care continued.
[2020-04-17 05:00] VITALS: BP 112/65
[2020-04-17] MEDS: MORPHINE SULF 30 mg ER tab PO PRN ×2 (06:35→23:10)
--- NOTE | 2020-04-17 06:46 | NUR ---
Patient was complaining of heartburn. Dr. Onur Ca paged regarding patient's complain. Message left with MD's answering service. Will give report to oncoming RN.
--- NOTE | 2020-04-17 07:30 | NUR ---
Opening Shift Note Assumed care of patient, awake and alert. No S/S of distress/SOB or pain. Instructed on POC and to call for assist PRN, will continue to monitor for changes Q1hr and PRN. Bed in low and locked position, rails up x2, no-slip socks on. Guards at bedside. Patient dilaudid pain pump infusing well and patient connected to continuous pulse oximeter.
[2020-04-17 09:00] VITALS: BP 108/62
[2020-04-17] MEDS: CHOLESTYRAMINE 4 GM POWDER PO SCH (09:32)
[2020-04-17] MEDS: PARoxetine 20 MG TAB PO SCH (09:32)
--- NOTE | 2020-04-17 11:33 | NUR ---
Respiratory note: POX CHECK DONE. PT CONNECTED TO CONT BEDSIDE POX, ALARMS ARE SET AND FUNCTIONING. HR 86 RR 16 SPO2 94% ON 1L N/C
--- NOTE | 2020-04-17 11:40 | NUR ---
COMPLAINS OF HEARTBURN PAGE TO DR GOLDMAN TO NOTIFY OF PATIENTS COMPLAINTS OF HEARTBURN, NEW ORDERS ADDED, WILL CARRY OUT.
[2020-04-17 12:39] VITALS: BP 101/62
[2020-04-17] MEDS: ALUM & MAG HYDROX-SIMETH LIQ(MAALOX) 30 ML PO PRN (12:53)
--- NOTE | 2020-04-17 13:49 | NUR ---
Nutrition Followup Notes Wt: 82.7 kg Pt is currently on regular diet with a poor appetite aeb ave 17% PO intake over 4 days per RN doc. Noted pt completed radiation therapy, waiting on decision for further chemo treatment per MD note. Will continue to monitor PO status, skin status, pertinent labs and weight trends. Will f/u in 5-7 days. Est Energy needs: 3448-5996 kcals (17-20 kcal/kgBW), Est Protein needs: 109-145 gms/day (1.5-2.0 gm/kgIBW) d/t pt adiposity. Will continue to monitor and reassess prn. Labs: CA 8.1 L, ALB 2.2 L BM: Pt had 3 BM on 04/17 per RN doc. Skin: BS 19 low risk, full details in client care specialist doc. PES: 1) Obesity r/t energy intake in excess of energy needs aeb 129% IBW and BMI of 30.7 kg/m2 2) Altered nutrition related lab values r/t current medical condition aeb hyponatremia, mod hypoalbuminemia Comments Will continue to closely monitor pertinent labs, PO intake and skin status prn. Will followup in 3-5 days 1) Consider prostat 1 packet bid. 2) consider low lactose diet if diarr persists. 3) Continue to closely monitor pt PO intake to meet at least 75% of meals. 4) Continue current plan of care
[2020-04-17 16:36] VITALS: BP 106/69
[2020-04-17] MEDS: SUCRALFATE 1 GM/10 ML ORAL SUSP PO SCH ×2 (17:47→22:21)
--- NOTE | 2020-04-17 19:20 | NUR ---
Opening Shift Note Received report from Cookie RAGSDALE. Assumed care of patient, awake and alert. guardian family member at bedside. No S/S of distress/SOB or pain. Instructed on POC and to call for assist PRN. Fall precaution measures in place, will continue to monitor for changes Q1hr and PRN.
[2020-04-17 22:00] VITALS: BP 121/70
[2020-04-17] MEDS: PANTOPRAZOLE 40 MG TAB PO SCH (22:21)
[2020-04-17] MEDS: ZOLPIDEM TARTRATE 5 MG TAB PO PRN (23:10)
[2020-04-18] MEDS: CHOLESTYRAMINE 4 GM POWDER PO SCH ×3 (00:15→23:00)
[2020-04-18 05:00] VITALS: BP 114/70
[2020-04-18] MEDS: SUCRALFATE 1 GM/10 ML ORAL SUSP PO SCH ×4 (06:55→21:56)
--- NOTE | 2020-04-18 07:28 | NUR ---
Opening Shift Note Assumed care of patient, awake and alert. No S/S of distress/SOB or pain. Instructed on POC and to call for assist PRN, will continue to monitor for changes Q1hr and PRN. Bed locked in lowest position with two side rails up and call light in reach.
[2020-04-18 08:00] VITALS: BP 91/56
[2020-04-18 09:15] VITALS: BP 91/56
[2020-04-18] MEDS: PANTOPRAZOLE 40 MG TAB PO SCH ×2 (10:21→21:56)
[2020-04-18] MEDS: PARoxetine 20 MG TAB PO SCH (10:21)
[2020-04-18] MEDS: MORPHINE SULF 30 mg ER tab PO PRN ×2 (10:21→20:10)
[2020-04-18 12:34] VITALS: BP 100/64
[2020-04-18 16:51] VITALS: BP 101/55
--- NOTE | 2020-04-18 18:40 | NUR ---
RECEIVED DILAUDID MOBILE PRACTICE LEAD REFILL FROM LUANA IN PHARMACY. WILL ENDORSE AND GIVE TO NOC NURSE.
--- NOTE | 2020-04-18 18:58 | NUR ---
DILAUDID JOURNALISM PROFESSOR REFILL SYRINGE ENDORSE AND HANDED OFF TO NOC NURSE FRAN RAGSDALE.
--- NOTE | 2020-04-18 19:15 | NUR ---
Opening Shift Note Received report from Christiana RAGSDALE. Assumed care of patient, awake and alert. No S/S of distress/SOB or pain. Instructed on POC and to call for assist PRN. Fall precaution measures in place, will continue to monitor for changes Q1hr and PRN.
--- NOTE | 2020-04-18 19:20 | NUR ---
Respiratory note: AT BEDSIDE FOR POX CHECK. POX 94-95% ON ROOM AIR. HR 70S. GUARDS AT BEDSIDE.
--- NOTE | 2020-04-18 20:40 | NUR ---
Dr. nOur Ca rounding, no new order.
[2020-04-18 22:00] VITALS: BP 120/68
[2020-04-18] MEDS ORDERED: ONDANSETRON HCL 4 MG/2 ML VIAL IV PRN (22:30)
[2020-04-18] MEDS: ZOLPIDEM TARTRATE 5 MG TAB PO PRN (23:20)
[2020-04-19 05:00] VITALS: BP 92/61
[2020-04-19] MEDS: MORPHINE SULF 30 mg ER tab PO PRN ×2 (06:04→17:59)
[2020-04-19] MEDS: SUCRALFATE 1 GM/10 ML ORAL SUSP PO SCH ×4 (06:41→22:46)
[2020-04-19 09:00] VITALS: BP 93/54
[2020-04-19] MEDS: CHOLESTYRAMINE 4 GM POWDER PO SCH ×2 (10:17→22:56)
[2020-04-19] MEDS: PARoxetine 20 MG TAB PO SCH (10:17)
[2020-04-19] MEDS: PANTOPRAZOLE 40 MG TAB PO SCH ×2 (10:17→22:46)
[2020-04-19 13:00] VITALS: BP 84/51
[2020-04-19 17:00] VITALS: BP 112/54
--- NOTE | 2020-04-19 19:25 | NUR ---
Opening Shift Note Received report from Sherie RAGSDALE. Assumed care of patient, awake and alert. road crossing guard at bedside. No S/S of distress/SOB or pain. Instructed on POC and to call for assist PRN, will continue to monitor for changes Q1hr and PRN.
[2020-04-19 22:00] VITALS: BP 119/72
[2020-04-19] MEDS: ZOLPIDEM TARTRATE 5 MG TAB PO PRN (22:48)
[2020-04-20 05:00] VITALS: BP 102/64
[2020-04-20] MEDS: MORPHINE SULF 30 mg ER tab PO PRN ×3 (05:25→23:39)
--- NOTE | 2020-04-20 05:48 | NUR ---
Respiratory note: Respiratory note: POX CHECK. HR 61, RR 14, SPO2 96% ON RA, BS CLEAR/DIMINISHED. NO SIGNS OR SYMPTOMS OF RESPIRATORY DISTRESS NOTED AT THIS TIME. PT INFORMED TO HIT CALL BUTTON IF FEELING SOB OR WHEEZING.GUARD AT BEDSIDE.
[2020-04-20] MEDS: SUCRALFATE 1 GM/10 ML ORAL SUSP PO SCH ×5 (06:48→22:04)
[2020-04-20 09:00] VITALS: BP 110/68
[2020-04-20] MEDS: PANTOPRAZOLE 40 MG TAB PO SCH ×2 (10:14→22:04)
[2020-04-20] MEDS: CHOLESTYRAMINE 4 GM POWDER PO SCH ×2 (10:14→23:00)
[2020-04-20] MEDS: PARoxetine 20 MG TAB PO SCH (10:14)
--- NOTE | 2020-04-20 11:54 | NUR ---
WOUND CARE NOTE: Wound care in to see patient for reevaluation of intragluteal fold/rectal wound. Patient continue resting in bed in Rm. 212B. Patient is awake, alert and oriented. Patient is self turning and repositioning and his Timothy score is 19. 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 Wound measuring 10x1cm. Wound is bright red and moist with bright and dark red dominic wound. Cleansed wound, patted dry with gauze and applied Thera honey gauze as MD ordered, covered with absorbent pad and new underwear. Patient tolerated well, guards at bedside. New photograph of wound are taken for reference. RECOMMENDATION: Continuation of all wound care ordered by MD, Continue with skin/wound plan of care, continue monitoring by wound care while patient is hospitalized. Addendum: 04/20/20 at 1642 by Katharina Ferrera RN Amended: Links added.
[2020-04-20 13:00] VITALS: BP 117/70
--- NOTE | 2020-04-20 14:23 | NUR ---
Patient ambulating With PT's Aravind and Tita. Patient using FWW.
[2020-04-20 16:57] VITALS: BP 111/71
[2020-04-20] MEDS: ALUM & MAG HYDROX-SIMETH LIQ(MAALOX) 30 ML PO PRN (23:39)
[2020-04-20] MEDS: ZOLPIDEM TARTRATE 5 MG TAB PO PRN (23:39)
[2020-04-20 23:46] VITALS: BP 114/69
--- NOTE | 2020-04-20 23:55 | NUR ---
1900. REPORT OBTAINED ON PATIENT. 1929 PATIENT SEEN IN HIS ROOM. DENIED PAIN AT THIS TIME. GRAINING MACHINE OPERATOR IN PLACE. 2139 BED BATH GIVEN REQUESTED.2338. ORAL MORPHINE GIVEN FOR INCREASED PAIN.
--- NOTE | 2020-04-21 01:16 | NUR ---
PATIENT SEEN BY DR GOLDMAN.
--- NOTE | 2020-04-21 03:02 | NUR ---
DR GOLDMAN ENTERED NO NEW ORDERS.
--- NOTE | 2020-04-21 03:04 | NUR ---
DILAUDID REFILL SYRING MADE AVAILABLE.
--- NOTE | 2020-04-21 03:35 | NUR ---
Dilaudid RELAY SHOP SUPERVISOR pump syringe replaced with new 50 ml syringe witnessed by another RN, Tasneem Mina. 35ml of Dilaudid wasted with another RN Tasneem Mina. Care continued.
--- NOTE | 2020-04-21 03:42 | NUR ---
patient feels comfortable. no complaint of pain.
[2020-04-21 05:33] VITALS: BP 100/54
[2020-04-21 06:07] LABS: Basophils # (auto) 0.1 10 ^3/uL (0-0.2); Eosinophils # (auto) 0.2 10 ^3/uL (0-0.8); Eosinophils % (auto) 3.5 % (0.0-7.0); Hematocrit 31.8 % (41.0-53.0); Hemoglobin 10.5 g/dL (13.5-17.5); Lymphocytes # (auto) 0.7 10 ^3/uL (0.4-5.4); Mean Corpuscular Hemoglobin 27.2 pg (28.0-32.0); Mean Corpuscular Hgb Conc. 32.9 g/dL (32.0-36.0); Mean Corpuscular Volume 82.5 fL (80.0-100.0); Monocytes # (auto) 1.1 10 ^3/uL (0-1.3); Monocytes % (auto) 15.8 % (0.0-12.0); Neutrophils # (auto) 4.6 10 ^3/uL (1.6-8.6); Neutrophils % (auto) 68.7 % (37.0-80.0); Nucleated Red Blood Cells % 0.2 %; Platelet Count (auto) 265 10^3/uL (140-450); Red Blood Cells 3.85 10^6/uL (4.5-5.90); Red Cell Distribution Width 19.3 % (11.8-14.3); White Blood Cell 6.7 10^3/uL (4.4-10.8)
[2020-04-21 06:33] LABS: Potassium 3.5 mmol/L (3.5-5.1)
[2020-04-21 06:39] LABS: Albumin 2.4 g/dL (3.4-5.0); BUN/Creatinine Ratio 13.5; Bilirubin, Total 0.8 mg/dL (0.2-1.0)
--- NOTE | 2020-04-21 08:00 | NUR ---
Opening Shift Note Assumed care of patient, awake, alert and oriented X4. No S/S of distress/SOB, complains of generalized pain, 10/10, informed will medicate with prescribed pain medication, verbalized understanding. Right upper chest wall Katalina Cath, accessed with dressing clean, dry and intact, hydromorphone SANITARIAN AIDE connected. Urethral Roblero catheter draining clear, yellow urine to gravity. Instructed on POC and to call for assist PRN, verbalized understanding. Bed locked, in lowest position, call light within reach, guards X3 at bedside, left wrist and bilateral ankles shackled to bed frame, will continue to monitor for changes Q1hr and PRN.
[2020-04-21 09:00] VITALS: BP 103/65
[2020-04-21] MEDS: MORPHINE SULF 30 mg ER tab PO PRN ×2 (09:43→18:46)
[2020-04-21] MEDS: PANTOPRAZOLE 40 MG TAB PO SCH ×2 (09:43→22:00)
[2020-04-21] MEDS: PARoxetine 20 MG TAB PO SCH (09:43)
--- NOTE | 2020-04-21 10:59 | NUR ---
Respiratory note: PT ASSESSED FOR PRN MN TX. HR 83, RR 16, POX 98% ON RA, BS ARE CLEAR. NO SOB OR DISTRESS NOTED. PT WAS NOTIFY TO HAVE RN PAGED IF MN TX WAS NEEDED.
[2020-04-21] MEDS: CHOLESTYRAMINE 4 GM POWDER PO SCH ×2 (11:49→23:00)
[2020-04-21] MEDS: SUCRALFATE 1 GM/10 ML ORAL SUSP PO SCH ×3 (11:50→22:00)
[2020-04-21 13:00] VITALS: BP 110/76
[2020-04-21 17:00] VITALS: BP 120/74
--- NOTE | 2020-04-21 19:03 | NUR ---
Care endorsed to MELYSSA Syed, night nurse.
--- NOTE | 2020-04-21 19:53 | NUR ---
0. REPORT OBTAINED ON PATIENT. 1924. PATIENT SEEN IN HIS ROOM AND ASSESSMENT DONE. PATIENT WAS AWAKE AND ALERT. DENIED PAIN AT THIS TIME. DILAUDID CARE PROGRAM RESIDENT IN PLACE. PATIENT VERBALIZES UNDERSTANDING ON USAGE. MONITORING CONTINUES.
--- NOTE | 2020-04-21 19:56 | NUR ---
0. REPLACEMENT CARGO OPERATIONS AGENT DILAUDID SYRINGE PROVIDED BY PHARMACY.
[2020-04-21 22:15] VITALS: BP 117/71
[2020-04-21] MEDS: ZOLPIDEM TARTRATE 5 MG TAB PO PRN (22:37)
[2020-04-21] MEDS: ALUM & MAG HYDROX-SIMETH LIQ(MAALOX) 30 ML PO PRN (22:38)
--- NOTE | 2020-04-21 23:53 | NUR ---
PATIENT SLEEPING AT THIS TIME
--- NOTE | 2020-04-22 03:45 | NUR ---
Dilaudid FOREIGN SERVICE TEACHER pump syringe replaced with new 50 ml syringe witnessed by another RN, Tasenem Mina. 35ml of Dilaudid wasted with another RN Tasneem Mina. Care continued.
--- NOTE | 2020-04-22 03:48 | NUR ---
0335. DILAUDID SYRINGE REPLACEMENT DONE. WITNESSED BY ZAK RAGSDALE CHARGE NURSE.
[2020-04-22 05:17] VITALS: BP 125/83
[2020-04-22] MEDS: SUCRALFATE 1 GM/10 ML ORAL SUSP PO SCH ×4 (06:43→22:29)
--- NOTE | 2020-04-22 07:21 | NUR ---
0700. PATIENT ENDORSED TO JULIE. RAGSDALE.
--- NOTE | 2020-04-22 08:00 | NUR ---
Opening Shift Note Assumed care of patient, awake, alert and oriented X4. No S/S of distress/SOB, complains of rectal pain, /, informed will medicate with prescribed pain medication, verbalized understanding. Right upper chest wall Katalina Cath, accessed with dressing clean, dry and intact, hydromorphone ENERGY RATER connected. Urethral Roblero catheter draining clear, yellow urine to gravity. Instructed on POC and to call for assist PRN, verbalized understanding. Bed locked, in lowest position, call light within reach, guards X3 at bedside, left wrist and bilateral ankles shackled to bed frame, will continue to monitor for changes Q1hr and PRN.
[2020-04-22] MEDS: MORPHINE SULF 30 mg ER tab PO PRN ×2 (08:31→20:31)
[2020-04-22 09:00] VITALS: BP 118/74
--- NOTE | 2020-04-22 10:48 | NUR ---
Pt declined PT treatment today.
[2020-04-22] MEDS: PARoxetine 20 MG TAB PO SCH (11:11)
[2020-04-22] MEDS: PANTOPRAZOLE 40 MG TAB PO SCH ×2 (11:11→22:29)
[2020-04-22] MEDS: CHOLESTYRAMINE 4 GM POWDER PO SCH ×2 (11:11→23:15)
[2020-04-22 13:00] VITALS: BP 113/71
--- NOTE | 2020-04-22 15:33 | NUR ---
Nutrition Followup Notes Wt: 85.7 kg Pt is currently on regular diet with a poor appetite aeb ave 21% PO intake over 4 days per RN doc. Noted pt completed radiation therapy, Pt still deciding whether he wants further chemo treatment per MD note. Pt is with rectal pain. Will continue to monitor PO status, skin status, pertinent labs and weight trends. Will f/u in 5-7 days. Est Energy needs: 0524-3478 kcals (17-20 kcal/kgBW), Est Protein needs: 109-145 gms/day (1.5-2.0 gm/kgIBW) d/t pt adiposity. Will continue to monitor and reassess prn. Labs: CA 8.0 L, ALB 2.4 L BM: Pt had 3 BM on 04/22 per RN doc. Skin: BS 19 low risk, full details in managed care provider doc. PES: 1) Obesity r/t energy intake in excess of energy needs aeb 129% IBW and BMI of 30.7 kg/m2 2) Altered nutrition related lab values r/t current medical condition aeb hyponatremia, mod hypoalbuminemia Comments Will continue to closely monitor pertinent labs, PO intake and skin status prn. Will followup in 3-5 days 1) Consider prostat 1 packet bid. 2) consider low lactose diet if diarr persists. 3) Continue to closely monitor pt PO intake to meet at least 75% of meals. 4) Continue current plan of care
[2020-04-22 17:00] VITALS: BP 118/71
[2020-04-22] MEDS ORDERED: HYDROmorphone HCL 2 MG/ML VL IV PRN (18:30)
--- NOTE | 2020-04-22 18:33 | NUR ---
ROUNDS Dr Horvath at bedside for rounds, new orders received and followed through. Patient updated on plan of care, verbalized understanding.
--- NOTE | 2020-04-22 19:15 | NUR ---
Care endorsed to MELYSSA Syed, night nurse.
[2020-04-22 22:00] VITALS: BP 122/76
[2020-04-22] MEDS: ZOLPIDEM TARTRATE 5 MG TAB PO PRN (23:15)
--- NOTE | 2020-04-23 01:07 | NUR ---
190. REPORT RECEIVED ON PATIENT. 1999. PATIENT SEEN ON HIS BED. AWAKE AND ALERT. COMPLAINED OF PAIN . MEDICATED FOR PAIN WITH MORPHINE TABLETS. 90MG. 2199. PATIENT UP TO TAKE HIS MEDS. DENIED PAIN. 0000. PATIENT SLEEPING BUT AROUSABLE.
--- NOTE | 2020-04-23 04:08 | NUR ---
Dilaudid MECHANIC FOREMAN pump syringe replaced with new 50 ml syringe witnessed by another RN, . 32ml of Dilaudid wasted with another 2 RN. MARCUS and AMABEL Care continued.
[2020-04-23 05:00] VITALS: BP 114/83
[2020-04-23] MEDS: SUCRALFATE 1 GM/10 ML ORAL SUSP PO SCH ×4 (06:36→22:28)
--- NOTE | 2020-04-23 07:35 | NUR ---
Opening Shift Note Assumed care of patient, awake and alert. No S/S of distress/SOB, reports body pain. Instructed on POC and to call for assist PRN, will continue to monitor for changes Q1hr and PRN.
[2020-04-23 09:00] VITALS: BP 106/67
[2020-04-23] MEDS: PANTOPRAZOLE 40 MG TAB PO SCH ×2 (09:50→22:29)
[2020-04-23] MEDS: PARoxetine 20 MG TAB PO SCH (09:50)
[2020-04-23] MEDS: CHOLESTYRAMINE 4 GM POWDER PO SCH ×2 (09:50→23:46)
[2020-04-23] MEDS: MORPHINE SULF 30 mg ER tab PO PRN (09:51)
[2020-04-23 13:00] VITALS: BP 118/74
[2020-04-23] MEDS: MORPHINE SULF 30 mg ER tab PO SCH ×2 (15:55→22:28)
[2020-04-23] MEDS: fentaNYL 100MCG/HR 100 MCG/HR PAT TD SCH (15:56)
[2020-04-23 17:00] VITALS: BP 106/69
[2020-04-23] MEDS ORDERED: CHL4PW PO (17:19)
[2020-04-23] MEDS ORDERED: ONDA4INJ5 IV (17:19)
[2020-04-23] MEDS ORDERED: PAR20T PO (17:19)
--- NOTE | 2020-04-23 17:40 | NUR ---
CM paged, to be discharged to SNF for comfort measures when bed available. Awaiting call back.
--- NOTE | 2020-04-23 19:30 | NUR ---
Opening Shift Note Assumed care of patient, awake and alert. No S/S of distress/SOB. Pain management options discussed with patient. Instructed on POC and to call for assist PRN, will continue to monitor for changes Q1hr and PRN.
[2020-04-23 20:00] VITALS: BP 122/87
[2020-04-23 21:40] VITALS: BP 122/81
[2020-04-23] MEDS: ZOLPIDEM TARTRATE 5 MG TAB PO PRN (23:47)
[2020-04-24 04:40] VITALS: BP 121/79
[2020-04-24] MEDS: MORPHINE SULF 30 mg ER tab PO SCH ×3 (06:00→22:25)
[2020-04-24] MEDS: SUCRALFATE 1 GM/10 ML ORAL SUSP PO SCH ×4 (06:53→22:25)
--- NOTE | 2020-04-24 06:53 | NUR ---
morning medications held due to patient's difficulty to arouse. patient was already sedated and did not want to add more sedation.
--- NOTE | 2020-04-24 07:30 | NUR ---
Opening Shift Note Assumed care of patient, awake and alert, drowsy. No S/S of distress/SOB, reports pain is improved a little, states he slept well. Instructed on POC and to call for assist PRN, will continue to monitor for changes Q1hr and PRN.
[2020-04-24 09:00] VITALS: BP 112/72
--- NOTE | 2020-04-24 10:28 | NUR ---
CM paged regarding discharge placement, awaiting call back.
[2020-04-24] MEDS: CHOLESTYRAMINE 4 GM POWDER PO SCH ×2 (10:40→22:26)
[2020-04-24] MEDS: PANTOPRAZOLE 40 MG TAB PO SCH ×2 (10:40→22:26)
[2020-04-24] MEDS: PARoxetine 20 MG TAB PO SCH (10:40)
[2020-04-24 13:00] VITALS: BP 107/74
--- NOTE | 2020-04-24 13:35 | NUR ---
consult Sent [facility] SNF packet on patient. Waiting for reply back now. Addendum: 04/24/20 at 1336 by Imelda RASCON Amended: Links added.
--- NOTE | 2020-04-24 14:13 | NUR ---
Spoke with Padmini at SNF she states they do have a bed available, will be notified.
[2020-04-24 16:49] VITALS: BP 117/75
--- NOTE | 2020-04-24 19:07 | NUR ---
Room available at [facility] acute room 9C, the number for report is [phone]. Covid test sent,awaiting results, per indoor landscape architect patients that are discharged to a SNF needing a gurney, will need transportation set up.
[2020-04-24 20:00] VITALS: BP 115/73
[2020-04-24 22:00] VITALS: BP 115/73
[2020-04-24] MEDS: ZOLPIDEM TARTRATE 5 MG TAB PO PRN (22:26)
[2020-04-25 05:40] VITALS: BP 114/68
[2020-04-25] MEDS: MORPHINE SULF 30 mg ER tab PO SCH ×3 (06:08→22:22)
[2020-04-25] MEDS: SUCRALFATE 1 GM/10 ML ORAL SUSP PO SCH ×4 (06:09→22:22)
--- NOTE | 2020-04-25 08:05 | NUR ---
PERINEAL CARE PROVIDED. HYDRA-GUARD APPLIED TO SACRAL AREA.
[2020-04-25 09:00] VITALS: BP 129/65
[2020-04-25] MEDS: CHOLESTYRAMINE 4 GM POWDER PO SCH ×2 (10:19→22:23)
[2020-04-25] MEDS: PANTOPRAZOLE 40 MG TAB PO SCH ×2 (10:19→22:23)
[2020-04-25] MEDS: PARoxetine 20 MG TAB PO SCH (10:19)
[2020-04-25 13:00] VITALS: BP 115/64
[2020-04-25 17:00] VITALS: BP 103/70
--- NOTE | 2020-04-25 18:19 | NUR ---
BINDING DYER INFUSION SYRINGE REPLACED BY PHARMACY REQUEST. BINDING DYER INFUSION MEDICATION ADMINISTRATION COMPLETED, DOSING AND WASTE VERIFIED WITH MELYSSA WEINSTEIN WASTE AMOUNT: 7ML CALL LIGHT WITHIN REACH.
--- NOTE | 2020-04-25 18:47 | NUR ---
POX CHECK DONE AT THIS TIME. PT ON 1LPM NC, POX 96-97%. NO S/S OF DISTRESS NOTED. PT AWARE RESPIRATORY CAN BE PAGED AT ANY TIME HE EXPERIENCES ANY DIFFICULTY WITH HIS BREATHING. GUARDS AT BEDSIDE.
--- NOTE | 2020-04-25 19:30 | NUR ---
Opening Shift Note Assumed care of patient, awake and alert. No S/S of distress/SOB. Pain management plan discussed with patient. Instructed on POC and to call for assist PRN, will continue to monitor for changes Q1hr and PRN.
[2020-04-25 20:00] VITALS: BP 158/75
[2020-04-25 22:00] VITALS: BP 158/75
[2020-04-25] MEDS: ZOLPIDEM TARTRATE 5 MG TAB PO PRN (22:23)
[2020-04-26 05:23] VITALS: BP 124/61
[2020-04-26] MEDS: SUCRALFATE 1 GM/10 ML ORAL SUSP PO SCH ×4 (06:42→21:46)
[2020-04-26] MEDS: MORPHINE SULF 30 mg ER tab PO SCH ×3 (06:42→21:46)
--- NOTE | 2020-04-26 07:42 | NUR ---
Respiratory note: POX CHECK DONE. PT FOUND ON ROOM AIR HR 87, SP02 97%, RR 20. PT AWAKE ALERT AND RESPONSIVE.
--- NOTE | 2020-04-26 08:00 | NUR ---
OPENING SHIFT NOTE ASSUMED CARE OF PATIENT AWAKE AND ALERT. NO S/S OF DISTRESS NOTED. PATIENT HAS A COMPLAINT OF 10/10 PAIN. FIRE BOAT ENGINEER PUMP IS CORRECTLY FUNCTIONING. UPDATED PATIENT ON POC FOR THE DAY AND ALL QUESTIONS ANSWERED. BED IS IN LOWEST, LOCKED POSITION WITH SIDE RAILS UP X2 AND CALL LIGHT WITHIN REACH. GUARDS ARE AT BEDSIDE FOR SAFETY. WILL CONTINUE TO MONITOR Q1H AND PRN.
[2020-04-26 08:41] VITALS: BP 113/76
[2020-04-26] MEDS: PARoxetine 20 MG TAB PO SCH (09:32)
[2020-04-26] MEDS: PANTOPRAZOLE 40 MG TAB PO SCH ×2 (09:32→21:46)
[2020-04-26] MEDS: CHOLESTYRAMINE 4 GM POWDER PO SCH ×2 (11:28→23:00)
[2020-04-26 12:41] VITALS: BP 129/69
[2020-04-26] MEDS: fentaNYL 100MCG/HR 100 MCG/HR PAT TD SCH (14:07)
--- NOTE | 2020-04-26 16:00 | NUR ---
PAGED PAGED DR JIMENEZ REGARDING CHEMOTHERAPY ORDERS. AWAITING CALL BACK.
[2020-04-26 16:40] VITALS: BP 101/67
--- NOTE | 2020-04-26 17:55 | NUR ---
LANGUAGE THERAPIST PUMP HYDROMORPHONE LANGUAGE THERAPIST PUMP REPLACED WITH NEW SYRINGE DELIVERED BY PHARMACY. 0ML WASTED. REPLACEMENT WITNESSED BY FELLOW RN.
--- NOTE | 2020-04-26 18:00 | NUR ---
SPOKE WITH MD RECEIVED CALL FROM DR JIMENEZ REGARDING PATIENT'S DECISION TO BEGIN CHEMOTHERAPY. PER DR JIMENEZ THIS RN IS TO CALL PHARMACY AND ASK THEM TO MAKE THE CHEMOTHERAPY ACTIVE IN THE MAR. SPOKE WITH PHARMACIST, CHEMOTHERAPY WILL START TOMORROW.
--- NOTE | 2020-04-26 20:02 | NUR ---
open note assumed care of pt. upon etnering room, pt awake, alert and oriented x4. pt on room air no respiratory distress noted or expressed. pt has CROCHETER HAND pump, crews in place secured, below the waist and draining yellow. pt oriented to this nurse and updated on plan of care. pt bed locked, low and 2x rails up. call light in reach, this nurse to round q1hr and prn.
[2020-04-26 22:00] VITALS: BP 106/66
--- NOTE | 2020-04-26 22:40 | NUR ---
pt given bed bath and complete linen change. pt tolerated well.
[2020-04-27 05:35] VITALS: BP 121/68
--- NOTE | 2020-04-27 06:10 | NUR ---
Respiratory note: POX CHECK DONE. PT FOUND ON ROOM AIR HR 83, SP02 96%, RR 18. PT AWAKE ALERT AND RESPONSIVE.
[2020-04-27] MEDS: MORPHINE SULF 30 mg ER tab PO SCH ×3 (06:12→22:19)
[2020-04-27] MEDS: SUCRALFATE 1 GM/10 ML ORAL SUSP PO SCH ×4 (06:13→22:19)
--- NOTE | 2020-04-27 07:25 | NUR ---
Opening Shift Note Assumed care of patient, awake and alert. No S/S of distress/SOB, reports pain 10/10 to rectum, currently on COMMANDER INTERNAL AFFAIRS Dilaudid pump infusing to right upper chest Katalina cath, site patent and benign. Patient instructed to turn q2 hrs and avoid laying on his buttocks to allow pain relief to rectum where a open fissure is noted. Instructed on POC and to call for assist PRN, call light within reach, will continue to monitor for changes Q1hr and PRN.
[2020-04-27 08:00] VITALS: BP 97/60
[2020-04-27 09:24] VITALS: BP 97/60
--- NOTE | 2020-04-27 09:42 | NUR ---
PHYSICAL THERAPY PT AMBULATING WITH PHYSICAL THERAPY, USING FWW, NO DISTRESS NOTED, NO C/O SOB OR CP, CONT CARE
--- NOTE | 2020-04-27 10:30 | NUR ---
MEDICATIONS FOUND AT BEDSIDE/MD NOTIFIED MEDICATIONS FOUND 2 TABLETS AT BEDSIDE TABLE AFTER CLEARING OUT TRAY, TRASH AND EXTRA CUPS FROM BEDSIDE TABLE, QUESTIONED PATIENT ABOUT MEDICATION, THEY WERE HIS MORPHINE TABLETS, PATIENT STATES " I SAVED THEM FOR MY PHYSICAL THERAPY", THESE MEDICATION WERE HIS 0600 SCHEDULED DOSE, I INFORMED HIM HE IS SCHEDULED TID AND I WOULD NEED TO DISPOSE OF THEM AND NEXT TIME HE COULD REFUSE MEDICATION AND REQUEST MEDICATION AT A LATER TIME, NOTIFIED DR JIMENEZ OF FINDING, CONT CARE
[2020-04-27] MEDS: PANTOPRAZOLE 40 MG TAB PO SCH ×2 (10:36→22:19)
[2020-04-27] MEDS: PARoxetine 20 MG TAB PO SCH (10:36)
--- NOTE | 2020-04-27 11:00 | NUR ---
IV insertion IV access obtained, via clean sterile technique by inserting 20 gauge catheter at Right FA after1 attempt. IV secured properly. No trauma to site. Patient tolerated well.
--- NOTE | 2020-04-27 11:20 | NUR ---
WOUND CARE NOTE: IN TO SEE PATIENT AT THIS TIME FOR WEEKLY SKIN INTEGRITY MONITORING. PATIENT HAS CURRENT HANK SCORE OF 15. HE IS FULLY AMBULATORY. PATIENT CONTINUES TO HAVE CHRONIC DIARRHEA, AND WILL BE STARTING HIS CHEMOTHERAPY TREATMENTS TODAY. PATIENT HAS A 3.5 X 1 CM FULL THICKNESS FISSURE/RADIATION BURN TO THE INTRAGLUTEAL FOLD. THERE IS YELLOW ADIPOSE TISSUE NOTED, PALE RED GRANULATION NOTED. PERIWOUND SKIN IS LEATHERY, DARK BROWN/RED. LIGHT SEROUS DRAINAGE NOTED. PATIENT HAS MULTIPLE BOUTS WITH DIARRHEA, IT WOULD BE BENEFICIAL TO CHANGE DRESSING FROM THERAHONEY TO THICK LAYER OF ZGUARD, D/T FREQUENT PERICARE NEEDED. WOUND PHOTO TAKEN FOR REFERENCE. APPLIED ABD PAD, DISPOSABLE UNDERWEAR OVER THE WOUND. NO OTHER WOUNDS NOTED. RECOMMEND: CHANGE FROM THERAHONEY TO THICK LAYER OF ZGUARD, CONTINUATION WITH ALL OTHER WOUND CARE ORDERS PREVIOUSLY PRESCRIBED BY MD. WOUND CARE TEAM WILL CONTINUE TO MONITOR. Addendum: 04/27/20 at 1320 by Alesia Crocker RN Amended: Links added.
[2020-04-27] MEDS: CHOLESTYRAMINE 4 GM POWDER PO SCH ×2 (12:25→23:00)
--- NOTE | 2020-04-27 12:38 | NUR ---
DR JIMENEZ AY BEDSIDE
[2020-04-27 12:41] VITALS: BP 107/71
--- NOTE | 2020-04-27 13:04 | NUR ---
Nutrition Followup Notes Wt: 81.0 kg Pt is currently on regular diet with a fair appetite aeb ave 42% PO intake over 3 meals per RN doc. Noted pt completed radiation therapy, Pt is still deciding whether he wants further chemo treatment per MD note. Pt is also still with rectal pain. Est Energy needs: 2195-7356 kcals (17-20 kcal/kgBW), Est Protein needs: 109-145 gms/day (1.5-2.0 gm/kgIBW) d/t pt adiposity. Will continue to monitor and reassess prn. Labs: CA 8.0 L, ALB 2.4 L BM: Pt had 2 BM on 04/27 per RN doc. Skin: BS 15 low risk, full details in care support representative doc. PES: 1) Obesity r/t energy intake in excess of energy needs aeb 129% IBW and BMI of 30.7 kg/m2 2) Altered nutrition related lab values r/t current medical condition aeb hyponatremia, mod hypoalbuminemia Comments Will continue to closely monitor pertinent labs, PO intake and skin status prn. Will followup in 5-7 days 1) Consider prostat 1 packet bid. 2) consider low lactose diet if diarr persists. 3) Continue to closely monitor pt PO intake to meet at least 75% of meals. 4) Continue current plan of care
[2020-04-27] MEDS ORDERED: FLUOROURACIL 2,000 MG in SODIUM CHLORIDE 0.9% 1,000 ML IV SCH (14:00)
--- NOTE | 2020-04-27 14:25 | NUR ---
SKIN PT ASSISTED TO HIS SIDE, Z-GUARD APPLIED TO RECTUM, PT TOLERATED WELL, CONT CARE Addendum: 04/27/20 at 1845 by Cande Bonilla RN Z-GUARD APPLIED TO WOUND TO INNER GLUTEAL FOLD
[2020-04-27 16:27] VITALS: BP 118/78
--- NOTE | 2020-04-27 17:59 | NUR ---
AT BESIDE DR MCCRAY AT BEDSIDE, [facility]
--- NOTE | 2020-04-27 20:10 | NUR ---
open note assumed care of pt, upon entering room pt awake alert and oriented x4. pt is on room air, no s/s distress noted or expressed. pt has SUPERVISOR KEYMODULE ASSEMBLY as well as chemo running as per MD and FANG order. pt updated on plan of care. pt bed is locked, low and 2x rails up. call light in reach, this nurse to round q1hr and prn. this nurse encouraged pt to call as needed. this nurse also informed associated staff about need for proper disposal of any pt waste, or items that may contain any bodily fluid in appropriate receptacles clearly marked within patient restroom.
[2020-04-27 21:25] VITALS: BP 101/61
[2020-04-28 05:00] VITALS: BP 127/77
[2020-04-28] MEDS: MORPHINE SULF 30 mg ER tab PO SCH ×3 (05:53→21:33)
--- NOTE | 2020-04-28 08:09 | NUR ---
OPENING SHIFT NOTE Assumed care of patient, awake and alert. No S/S of distress/SOB. currently on CERTIFIED ORTHOTIST Dilaudid pump infusing to right upper chest Katalina cath, site patent and benign. Patient instructed to turn q2 hrs. open fissure is noted to buttock. Guards at bedside. Instructed on POC and to call for assist PRN, call light within reach, will continue to monitor for changes Q1hr and PRN.
[2020-04-28 09:00] VITALS: BP 114/67
[2020-04-28] MEDS: SUCRALFATE 1 GM/10 ML ORAL SUSP PO SCH ×4 (09:37→21:32)
[2020-04-28] MEDS: PARoxetine 20 MG TAB PO SCH (09:38)
[2020-04-28] MEDS: PANTOPRAZOLE 40 MG TAB PO SCH ×2 (09:39→21:33)
[2020-04-28] MEDS: CHOLESTYRAMINE 4 GM POWDER PO SCH ×2 (12:00→23:05)
--- NOTE | 2020-04-28 12:03 | NUR ---
RECEIVED CALL FROM [facility] STATING PT WOULD BE RELEASED TODAY. RELAYED TO [place] AND DR MCCRAY. CONFIRMED BY BOTH. MD MCCRAY STATED PT WOULD BE IN HIS OWN CARE AFTER GUARDS LEFT. ALSO STATED PT WOULD RECEIVED DC ORDER AFTER ARRIVED FROM NUNE[facility]. STATED PT WOULD LEAVE WITH MEDICATIONS FROM [facility] AND WOULD NOT NEED HOME HEALTH AFTER DC. ALSO ORDERED TO DC CHEMO THERAPY AND CONTINUE MATH AND SCIENCES DEPARTMENT CHAIR PUMP.
[2020-04-28 13:00] VITALS: BP 114/73
--- NOTE | 2020-04-28 15:15 | NUR ---
RELEASE PAPERS RECEIVED AT BEDSIDE. BEDSIDE GUARDS REMOVED CUFFS AND PT IS NOW UNDER OWN CARE. WILL COMMUNICATE WITH .
--- NOTE | 2020-04-28 16:28 | NUR ---
SPOKE WITH CHARGE NURSE AND PT'S REGARDING PAIN MANAGEMENT AND LACK OF INSURANCE AFTER DC. STATED SHE HAD NOT SET UP ANY INSURANCE AND WOULD SEEK INFO ON 04/29. REVIEWED INPATIENT PAIN MEDICATIONS AND RELAYED CONCERN OF POSSIBLE WITHDRAW SYMPTOMS. AGREED. PT AGREED ALSO. SPOKE WITH MD MCCRAY. ORDERED SS CONSULT FOR NO INSURANCE AND POSSIBLE HOME HEALTH. CHARGE NURSE IS AWARE.
[2020-04-28 17:00] VITALS: BP 138/82
--- NOTE | 2020-04-28 18:15 | NUR ---
RIVERBOAT CAPTAIN SYRINGE EMPTY. NEW RIVERBOAT CAPTAIN SYRINGE PLACED IN PUMP. 24 HOURS SINCE PLACEMENT OF LAST SYRINGE. CHARGE NURSE AWARE.
--- NOTE | 2020-04-28 18:50 | NUR ---
Respiratory note: PT RECIEVED ON RA. PT IS AWAKE AND ALERT AT THIS TIME. NO RESP DISTRESS NOTED. SPO2 93%, HR 88, RR 18.
--- NOTE | 2020-04-28 19:30 | NUR ---
Opening Shift Note Assumed care of patient, awake and alert. Reports pain. On CHIEF OPTOMETRY SERVICE Dilaudid. Instructed on POC and to call for assist PRN, will continue to monitor for changes Q1hr and PRN.
[2020-04-28 22:00] VITALS: BP 114/69
[2020-04-28] MEDS: ZOLPIDEM TARTRATE 5 MG TAB PO PRN (23:06)
--- NOTE | 2020-04-29 00:20 | NUR ---
Family updated on pt status Family of [place] updated on patient's status and condition. All questions and concerns addressed. verbalized understanding.
[2020-04-29 05:00] VITALS: BP 103/62
[2020-04-29] MEDS: MORPHINE SULF 30 mg ER tab PO SCH ×3 (06:01→17:30)
[2020-04-29] MEDS: SUCRALFATE 1 GM/10 ML ORAL SUSP PO SCH ×3 (06:01→17:00)
--- NOTE | 2020-04-29 07:45 | NUR ---
Opening Note Received report from security shift manager RN. Patient is awake, alert and oriented x4. Patient is on 2L NC, respirations even and unlabored. Patient states pain is 10/10. Patient is on CHEMICAL LAB TECHNICIAN pump. Reviewed plan of care with patient, patient verbalized understanding. Bed in low and locked position, call light within reach. Will continue to monitor Q1 hour and PRN.
[2020-04-29 09:00] VITALS: BP 130/80
[2020-04-29] MEDS: PARoxetine 20 MG TAB PO SCH (11:51)
[2020-04-29] MEDS: PANTOPRAZOLE 40 MG TAB PO SCH (11:52)
[2020-04-29] MEDS: CHOLESTYRAMINE 4 GM POWDER PO SCH (11:52)
[2020-04-29 13:00] VITALS: BP 107/70
--- NOTE | 2020-04-29 13:56 | NUR ---
assessment Patient is a 59 year old male who is alert and oriented. Patient has been released from skilled nursing under compassionate release. Patient now has no insurance. On discharge patient will be returning home with his Rufina in [facility]. Per Rufina she has ordered a hospital bed and fww for patient. Per Rufina she will be transporting patient home on discharge. Rufina has informed me she has started [employer]-mer[employer] application for patient. I have also notified Pete Ward from [facility] to see patient. Rufina has also informed me that she is also trying to add patient onto her insurance through [employer]. I will follow up in the morning with Rufina. Addendum: 04/29/20 at 1405 by Imelda RASCON Amended: Links added.
[2020-04-29] MEDS: fentaNYL 100MCG/HR 100 MCG/HR PAT TD SCH (14:00)
--- NOTE | 2020-04-29 16:20 | NUR ---
Call from Dr. Horvath New orders received to place discharge order for patient. MD will call in prescriptions to patients preferred pharmacy.
--- NOTE | 2020-04-29 16:25 | NUR ---
Preferred pharmacy Spoke to patients Chris, [facility] preferred pharmacy is [facility] [id number] [place] [address]. Phone number .
[2020-04-29 16:36] VITALS: BP 130/80
--- NOTE | 2020-04-29 17:01 | NUR ---
re-assessment Rufina patients called me back with policy number that Sheridan from [place] provided her with. Policy #[id number]. Rufina has also provided policy number to Eula in admitting. Per Rufina she will be here to transport patient home at 6pm. Per Gerri nurse outreach case manager Dr Horvath will have dc order put in. Addendum: 04/29/20 at 1703 by Imelda RASCON Amended: Links added.
--- NOTE | 2020-04-29 17:31 | NUR ---
MRSA swab collected and sent to lab
--- NOTE | 2020-04-29 17:32 | NUR ---
discharge wound photos taken
--- NOTE | 2020-04-29 17:35 | NUR ---
IV and ekg monitor tech removed. IV catheter removed catheter intact, pressure dressing applied. ekg monitor removed Monitor removed and sent back to ICU.
--- NOTE | 2020-04-29 18:17 | NUR ---
Katalina cath flushed katalina cath flushed per protocol and dressed with Tegaderm.
--- NOTE | 2020-04-29 18:18 | NUR ---
Roblero catheter removed Roblero catheter removed with clean technique following deflation of balloon. Patient tolerated well. Patient provided with urinal, and instructed to call for assistance. Will continue to monitor Q1 hour and PRN.
--- NOTE | 2020-04-29 19:18 | NUR ---
Discharge Discharge instructions given as ordered. Encourage to follow up with PCP when he gets insurance as instructed. All questions and concerns addressed. Patient verbalized understanding. Medication reconciliation form completed and copy given to patient. Patient taken down to private vehicle via wheelchair, accompanied by staff member. No signs or symptoms of distress noted at this time.
== END 2020-04-29 19:20 | disposition home or self-care (01) | DRG 982 ==
LOC: ER 17:21 → EEVIPCON 17:21 → OVERFLOW 17:22 → CENTRAL 20:18
PROVIDERS: ADMIT Specialist; ATTEND Internal Medicine
PROC: 0DBP8ZX Excision of Rectum, Via Natural or Artificial Opening Endoscopic, Diagnostic (ICD-10-PCS; principal; 2020-02-20 14:45)
PROC: 02H633Z Insertion of Infusion Device into Right Atrium, Percutaneous Approach (ICD-10-PCS; 2020-03-04)
PROC: 0JH60WZ Insertion of Totally Implantable Vascular Access Device into Chest Subcutaneous Tissue and Fascia, Open Approach (ICD-10-PCS; 2020-03-04)
PROC: B548ZZA Ultrasonography of Superior Vena Cava, Guidance (ICD-10-PCS; 2020-03-04)
PROC: 3E04305 Introduction of Other Antineoplastic into Central Vein, Percutaneous Approach (ICD-10-PCS; 2020-03-09)
DX: C19 Malignant neoplasm of rectosigmoid junction (principal); K52.0 Gastroenteritis and colitis due to radiation; C18.9 Malignant neoplasm of colon, unspecified; C78.7 Secondary malignant neoplasm of liver and intrahepatic bile duct; C79.51 Secondary malignant neoplasm of bone; C79.82 Secondary malignant neoplasm of genital organs; K92.1 Melena; C77.2 Secondary and unspecified malignant neoplasm of intra-abdominal lymph nodes; C78.5 Secondary malignant neoplasm of large intestine and rectum; E44.0 Moderate protein-calorie malnutrition; R16.0 Hepatomegaly, not elsewhere classified; K59.00 Constipation, unspecified; R31.0 Gross hematuria; M53.3 Sacrococcygeal disorders, not elsewhere classified; Z85.048 Personal history of other malignant neoplasm of rectum, rectosigmoid junction, and anus; Z74.01 Bed confinement status; R53.1 Weakness; F41.9 Anxiety disorder, unspecified; L30.9 Dermatitis, unspecified; Y84.2 Radiological procedure and radiotherapy as the cause of abnormal reaction of the patient, or of later complication, without mention of misadventure at the time of the procedure; Z51.5 Encounter for palliative care; Z66 Do not resuscitate; Z79.891 Long term (current) use of opiate analgesic; Z80.0 Family history of malignant neoplasm of digestive organs; Z92.3 Personal history of irradiation; E66.01 Morbid (severe) obesity due to excess calories; Z68.25 Body mass index [BMI] 25.0-25.9, adult; Z20.828 Contact with and (suspected) exposure to other viral communicable diseases
CPT/HCPCS: 10022; 36415; 45380; 71045; 73501; 74150; 77012; 80048; 80053; 80074; 82270; 82378; 83690; 85007; 85025; 85027; 85610; 85730; 86850; 86900; 86901; 87081; 87086; 87088; 87186; 87426; 87493; 93005; 94660; 94760; 94762; 96361; 96374; 96375; 97110; 97116; 97163; 97530; C9113; G0378; J0690; J1642; J2001; J2250; J2405; J2704; J3490